=== PATIENT | male | born 1960 | race Caucasian/White ===

== ENCOUNTER 2018-06-12 15:05 | Emergency (ER) | payer OTHER, SELFPAY ==
[2018-06-12 15:06] VITALS: BP 160/86; PULSE 76; RESP 20; TEMP 36.8; O2SAT 96; BMI 32.5
--- NOTE | 2018-06-12 15:19 | CT_ITS ---
STUDY: CTA CHEST REASON FOR EXAM: Male, 58 years old. Short of breath RADIATION DOSAGE (If Supplied By Facility): CTDIvol = ( 13.35 ) mGy, DLP = ( 764.13 ) mGycm TECHNIQUE: The examination was performed with the intravenous administration of 100ML ml of Isovue 370 contrast material. Post-processing of the angiographic images was performed, with multiplanar reformation and 3D reconstruction. Individualized dose optimization techniques were used for this CT. COMPARISON: May 16 2013 FINDINGS: Normal enhancement of the main pulmonary artery and right and left pulmonary arteries. There are multiple intraluminal filling defects within the subsegmental vessels of both lower lobes many of which appear linear and may be due to motion artifact. Some of the filling defects are lobular and are suspicious for emboli. Normal thoracic aorta and visualized great vessels. There is no demonstrated aortic dissection. The heart is normal size although and there appears to be multivessel coronary artery disease Normal mediastinum. Normal hilar regions. Normal visualized trachea and bronchi. The lungs are well expanded. There is mild nonspecific interstitial thickening. There are no focal infiltrates. Normal pleura. Normal chest wall structures. Dorsal spine demonstrates moderate spondylosis Normal visualized upper abdomen. CT/CTA Chest W/WO Contrast IMPRESSION: Mild nonspecific interstitial thickening.. Findings suspicious for pulmonary emboli however there are linear artifacts limiting the quality of the study. Would recommend clinical correlation and further assessment with ventilation/perfusion study and Doppler sonogram of the deep venous system of lower extremities if indicated N.B. : The above information has been verbally conveyed by Feliz Salas MD to Dr. Nicholas Wagner MD, on 06/12/2018 17:06:59 (ET). Electronically Signed: Feliz Salas MD at 17:08 EDT , Service support ,
--- NOTE | 2018-06-12 15:19 | EKG12_ITS ---
Test Reason : SOB Blood Pressure : / mmHG Vent. Rate : 073 BPM Atrial Rate : 073 BPM P-R Int : 154 ms QRS Dur : 094 ms QT Int : 416 ms P-R-T Axes : -09 -28 000 degrees QTc Int : 458 ms Normal sinus rhythm Normal ECG Confirmed by ALANNA CUI, MARTIN ([id number]), manager editorial JOHN DONATO ([id number]) on 06/14/2018 3:45:51 PM Referred By: OMAR Confirmed By:MARTIN MONDRAGON MD
--- NOTE | 2018-06-12 15:22 | ED.VISSUMM ---
- ER Visit Summary Date of Service: 06/12/18 Chief Complaint: Shortness of breath History of Present Illness: The patient is a 58 M with shortness of breath for 2 or 3 weeks. It seems to be getting worse over the last 2-3 weeks. It is worse throughout the day and better at night. He is concerned it might be related to exposure to a cat. He never had this before. No chest pain. No cough or sputum. No fevers. He has a history of DVT which was provoked by foot surgery. He is only on aspirin but no other thinners. Denies any leg swelling or calf pain. Denies nausea, vomiting, lightheadedness, or palpitations. Physical Examination: Blood pressure 160/86. Otherwise vitals normal. Afebrile. Patient is in no acute distress. Sitting, breathing, and speaking comfortably. HEENT exam unremarkable. Lungs clear in all burch. Heart regular rate and rhythm. Abdomen soft. Extremities nontender with no edema. Skin appears normal without diaphoresis or pallor. Test Results: EKG showed sinus rhythm at a rate of 73 with no signs of ischemia or infarction pattern. Laboratory studies and CT are pending. Emergency Department Course and Treatment: Patient may have an infectious or allergic cause. I was also concern for cardiac, vascular, and respiratory causes. He was treated with a DuoNeb while awaiting results. Will monitor. CBC normal. Glucose 198. Troponin normal. BNP normal. Coags pending. CT showed bilateral subsegmental PEs suspected. Patient was discussed with Dr. Lu. He was on Lovenox in the past. I am suspecting he will be on anticoagulation potentially for long-term. I spoke with the patient and we will start Xarelto. Follow-up with the office. His PESI score is low risk and he has no significant risk for bleeding. He was given precautions. He should return if he has any worsening of his PE symptoms or any issues with medication. Treatment Plan: As above Disposition: Discharge Impression: 1. Bilateral pulmonary emboli This note was generated with [employer] software. It may contain incorrect words, spelling, and punctuation that were not noted in review of the chart prior to signing ED Disposition - Plan for ED Patient: Chief Complaint: Shortness of Breath Referrals: Tadeo Salter MD [Primary Care Provider] -
[2018-06-12 15:27] VITALS: PULSE 70; RESP 12
[2018-06-12] MEDS: Ipratropium/Albuterol Sulfate 3 ML AMPUL.NEB INHALATION (15:27)
[2018-06-12 15:46] LABS: Absolute Neutrophil Count 5.9 X10^3/uL (2.0-7.7); Basophil# 0.03 X10^3/uL; Basophil% 0.4 % (0-1); Eosinophil# 0.12 X10^3/uL; Eosinophils% 1.4 % (0-5); Hematocrit 42.2 % (40-54); Hemoglobin 14.8 g/dl (13.0-16.5); Mean Corp Hgb Conc 35.1 g/gl (32-36); Mean Corpuscular Hgb 31.9 pg (27.0-32.0); Mean Corpuscular Volume 90.9 fL (80-94); Mean Platelet Vol. 10.4 fl (6.2-12.0); Monocyte# 0.73 X10^3/uL; Monocyte% 8.7 % (0-10); Neutrophil # 5.93 X10^3/uL (2.7-7.7); Neutrophil % 70.4 % (47-70); Platelet Count 193 K/mm3 (150-450); RBC Distribution Width CV 12.4 % (11.6-14.6); RBC Distribution Width SD 40.9 fl (35.1-43.9); Red Blood Count 4.64 M/mm3 (4.6-6.2); White Blood Count 8.4 K/mm3 (4.4-11.0)
[2018-06-12 15:47] LABS: POSITIVE COUNT NO; POSITIVE DIFFERENTIAL NO; POSITIVE MORPHOLOGY NO
[2018-06-12 15:51] VITALS: PULSE 81; RESP 17
[2018-06-12 16:01] LABS: Anion Gap 4 (5-15); BUN 9 mg/dL (7-18); BUN/Creat Ratio 8.9 RATIO (10-20); Calcium,Total 8.3 mg/dL (8.5-10.1); Chloride 105 mmol/L (98-107); Creatinine, Serum 1.01 mg/dL (0.70-1.30); EST Glomerular Filtration Rate 80 mL/min (>60); Est Glom Filt Rate - Afr Amer 97 mL/min (>60); Estimated Creatinine Clearance 85.37 ml/min; Glucose 198 mg/dL (74-106); Sodium Level 137 mmol/L (136-145)
[2018-06-12 16:13] LABS: BNP,B-Type NATRIURETIC PEPTIDE 32.6 pg/mL (0-100)
--- NOTE | 2018-06-12 18:09 | NURSING ---
DR TAVERAS PAGED
--- NOTE | 2018-06-12 18:21 | ED.DEP ---
ED Disposition - Plan for ED Patient: Chief Complaint: Shortness of Breath Instructions: Pulmonary Embolism Prescriptions: Rivaroxaban [Xarelto] 15 mg PO BID 21 Days #42 tab Referrals: Tadeo Salter MD [Primary Care Provider] -
[2018-06-12 18:33] LABS: Prothrombin Time (Protime)PT. 13.1 SECONDS (11.7-14.9)
[2018-06-12 18:34] LABS: Partial Thromboplast Time 29.4 Seconds (24.1-36.2)
[2018-06-12 18:54] VITALS: BP 140/82; PULSE 72; PULSE 73; RESP 16; RESP 17
[2018-06-12] MEDS: Rivaroxaban 15 MG Tablet PO (18:58)
== END 2018-06-12 19:04 | disposition home or self-care (01) ==
LOC: ED 15:57
PROVIDERS: Emergency Provider Emergency Medicine; Family Provider Internal Medicine; PCP Internal Medicine
DX: I26.99 Other pulmonary embolism without acute cor pulmonale (principal); E78.00 Pure hypercholesterolemia, unspecified; Z72.0 Tobacco use; Z86.718 Personal history of other venous thrombosis and embolism
CPT/HCPCS: 71275; 80048; 83880; 84484; 85025; 85610; 85730; 93005; 94640; 99285; Q9967; A4216

== ENCOUNTER 2018-06-18 13:13 | Emergency (ER) | payer OTHER, SELFPAY ==
[2018-06-18 13:17] VITALS: BP 144/78; PULSE 83; RESP 17; TEMP 37.7; O2SAT 94; BMI 31.8
--- NOTE | 2018-06-18 13:35 | EKG12_ITS ---
Test Reason : SOB Blood Pressure : / mmHG Vent. Rate : 063 BPM Atrial Rate : 063 BPM P-R Int : 136 ms QRS Dur : 098 ms QT Int : 428 ms P-R-T Axes : 000 -24 001 degrees QTc Int : 437 ms Normal sinus rhythm Normal ECG Confirmed by JACOB AREVALO ([id number]), image editor JOHN DONATO ([id number]) on 06/21/2018 2:08:56 PM Referred By: Confirmed By:JACOB AREVALO
--- NOTE | 2018-06-18 13:35 | RAD_ITS ---
STUDY: X-RAY CHEST REASON FOR EXAM: Male, 58 years old. Shortness of breath and chest tightness. TECHNIQUE: PA and lateral views of the chest. COMPARISON: Comparison is made with prior examination dated January 25, 2016. FINDINGS: EKG electrodes are seen. The lungs are clear and expanded. There is no demonstrated pleural abnormality. Normal size heart. Normal mediastinum and keenan. Normal visualized pulmonary arteries. Normal visualized aortic arch and descending thoracic aorta. There is demineralization of the osseous structures. Normal visualized ribs, clavicles, and shoulders. There is no demonstrated abnormality of the visualized soft tissue structures of the upper abdomen. RAD/Chest PA and Lateral IMPRESSION: No acute abnormality is seen. Electronically Signed: Carlton Ortiz MD at 14:47 EST Tel [phone], Service support ,
[2018-06-18 13:56] LABS: Absolute Lymphocyte Count 1.32 X10^3/ul (0.83-4.51); Absolute Neutrophil Count 6.3 X10^3/uL (2.0-7.7); Basophil# 0.03 X10^3/uL; Basophil% 0.3 % (0-1); Eosinophil# 0.09 X10^3/uL; Hematocrit 43.7 % (40-54); Hemoglobin 15.1 g/dl (13.0-16.5); Lymphocyte # 1.32 X10^3/ul (4.0); Lymphocyte % 15.3 % (19-41); Mean Corp Hgb Conc 34.6 g/gl (32-36); Mean Corpuscular Hgb 31.7 pg (27.0-32.0); Mean Corpuscular Volume 91.8 fL (80-94); Mean Platelet Vol. 10.4 fl (6.2-12.0); Monocyte# 0.88 X10^3/uL; Monocyte% 10.2 % (0-10); Neutrophil # 6.28 X10^3/uL (2.7-7.7); Neutrophil % 73.1 % (47-70); POSITIVE COUNT NO; POSITIVE DIFFERENTIAL NO; POSITIVE MORPHOLOGY NO; Platelet Count 209 K/mm3 (150-450); RBC Distribution Width CV 12.4 % (11.6-14.6); RBC Distribution Width SD 41.8 fl (35.1-43.9); Red Blood Count 4.76 M/mm3 (4.6-6.2); White Blood Count 8.6 K/mm3 (4.4-11.0)
[2018-06-18 14:08] LABS: Anion Gap 7 (5-15); BUN 10 mg/dL (7-18); BUN/Creat Ratio 9.9 RATIO (10-20); Chloride 103 mmol/L (98-107); Creatinine, Serum 1.01 mg/dL (0.70-1.30); EST Glomerular Filtration Rate 80 mL/min (>60); Est Glom Filt Rate - Afr Amer 97 mL/min (>60); Estimated Creatinine Clearance 85.37 ml/min; Glucose 235 mg/dL (74-106); Potassium 4.4 mmol/L (3.5-5.1); Sodium Level 139 mmol/L (136-145)
--- NOTE | 2018-06-18 14:11 | ED.VISSUMM ---
- ER Visit Summary Date of Service: 06/18/18 Chief Complaint: Left-sided chest discomfort and shortness of breath History of Present Illness: The patient is a 58 M who was diagnosed with bilateral subsegmental pulmonary embolus with a low pulmonary embolus severity index who was discharged home on Xarelto. Patient states he has been taking Xarelto. He presents because his home-going instructions informed him to return if he had chest pain or shortness of breath. 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 His definite shortness of breath is inability to get a complete breath. He has persistent left-sided chest pain. He denies leg pain, swelling discoloration. He does have history of prior DVT. He states he was seen by his PCP and had an ultrasound will lower extremity which was negative for DVT. Per old records has history of diabetes. Review of systems otherwise negative please read written note. Physical Examination: Vital signs noted and remarkable for a blood pressure 1 4478 otherwise normal. Head is atraumatic normocephalic. Pupils are equal round reactive. Extraocular muscles are intact. TMs are pearly white with landmarks noted. Nares patent with no drainage. Posterior pharynx without erythema or exudate. Uvula is midline. There is no dysphonia or dysphasia. Trachea is midline. There is no stridor with auscultation of the neck. Heart is regular without murmur, gallop or rub. S1 and S2 are normal. Lungs are clear to auscultation with good movement of air bilaterally. There is no reproducible chest pain and there is no skin lesions noted. Abdomen is soft nontender with no hepatosplenomegaly. There is no asymmetry, swelling, discoloration, leg vein distention, palpable cords or tenderness along the distribution of the deep venous system. Test Results: EKG reveals a sinus rhythm rate of 73 with a normal IA interval, QRS duration and QT interval. Cowen is normal. Chest x-ray was obtained to determine if there is evidence of pulmonary infarct, infiltrate, pneumothorax and any other abnormality the would explain his cough and shortness of breath. Chest x-ray is negative. CBC is normal. Basic metabolic panels marked for glucose of 235 and a diabetic patient Emergency Department Course and Treatment: EKG was obtained to evaluate for cardiac ischemia or right heart strain. Chest x-ray to evaluate for pneumonia, CHF pneumothorax. Also to determine if there is evidence of pulmonary infarct i.e.? Scarring or [place] hump. CBC to evaluate for anemia which could be a cause of his dyspnea. Electrolyte function. Treatment Plan: Since patient's workup is negative and CAT scan revealed sub-submental pulmonary embolus and he reports compliance with Xarelto patient is safe for discharge to home. Disposition: Discharged to home Impression: Left-sided chest pain and dyspnea unknown etiology Recent diagnosis of bilateral pulmonary embolus Hyperglycemia and type II diabetic This note was generated with [employer] dictation software. It may contain incorrect words, spelling, and punctuation that were not noted in review of the chart prior to signing ED Disposition - Plan for ED Patient: Disposition: Home or Assisted Living Chief Complaint: Shortness of Breath Instructions: ED Dyspnea Shortness of Breath Referrals: Tadeo Salter MD [Primary Care Provider] - 3-5 Days if not improving
--- NOTE | 2018-06-18 14:15 | ED.DCSUM_ITS ---
- ER Visit Summary Date of Service: 06/18/18 Chief Complaint: Left-sided chest discomfort and shortness of breath History of Present Illness: The patient is a 58 M who was diagnosed with bilateral subsegmental pulmonary embolus with a low pulmonary embolus severity index who was discharged home on Xarelto. Patient states he has been taking Xarelto. He presents because his home-going instructions informed him to return if he had chest pain or shortness of breath. 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 His definite shortness of breath is inability to get a complete breath. He has persistent left-sided chest pain. He denies leg pain, swelling discoloration. He does have history of prior DVT. He states he was seen by his PCP and had an ultrasound will lower extremity which was negative for DVT. Per old records has history of diabetes. Review of systems otherwise negative please read written note. Physical Examination: Vital signs noted and remarkable for a blood pressure 1 4478 otherwise normal. Head is atraumatic normocephalic. Pupils are equal round reactive. Extraocular muscles are intact. TMs are pearly white with landmarks noted. Nares patent with no drainage. Posterior pharynx without erythema or exudate. Uvula is midline. There is no dysphonia or dysphasia. Trachea is midline. There is no stridor with auscultation of the neck. Heart is regular without murmur, gallop or rub. S1 and S2 are normal. Lungs are clear to auscultation with good movement of air bilaterally. There is no reproducible chest pain and there is no skin lesions noted. Abdomen is soft nontender with no hepatosplenomegaly. There is no asymmetry, swelling, discoloration, leg vein distention, palpable cords or tenderness along the distribution of the deep venous system. Test Results: EKG reveals a sinus rhythm rate of 73 with a normal NC interval, QRS duration and QT interval. Belcher is normal. Chest x-ray was obtained to determine if there is evidence of pulmonary infarct, infiltrate, pneumothorax and any other abnormality the would explain his cough and shortness of breath. Chest x-ray is negative. CBC is normal. Basic metabolic panels marked for glucose of 235 and a diabetic patient Emergency Department Course and Treatment: EKG was obtained to evaluate for cardiac ischemia or right heart strain. Chest x-ray to evaluate for pneumonia, CHF pneumothorax. Also to determine if there is evidence of pulmonary infarct i.e.? Scarring or [place]ptons hump. CBC to evaluate for anemia which could be a cause of his dyspnea. Electrolyte function. Treatment Plan: Since patient's workup is negative and CAT scan revealed sub- submental pulmonary embolus and he reports compliance with Xarelto patient is safe for discharge to home. Disposition: Discharged to home Impression: Left-sided chest pain and dyspnea unknown etiology Recent diagnosis of bilateral pulmonary embolus Hyperglycemia and type II diabetic This note was generated with [employer] dictation software. It may contain incorrect words, spelling, and punctuation that were not noted in review of the chart prior to signing ED Disposition - Plan for ED Patient: Disposition: Home or Assisted Living Chief Complaint: Shortness of Breath Instructions: ED Dyspnea Shortness of Breath Referrals: Tadeo Salter MD [Primary Care Provider] - 3-5 Days if not improving
[2018-06-18 14:44] VITALS: BP 162/82; PULSE 66; RESP 18; O2SAT 97
== END 2018-06-18 14:45 | disposition home or self-care (01) ==
PROVIDERS: Emergency Provider Emergency Medicine; Family Provider Internal Medicine; PCP Internal Medicine
DX: R07.9 Chest pain, unspecified (principal); R06.09 Other forms of dyspnea; E11.65 Type 2 diabetes mellitus with hyperglycemia; Z72.0 Tobacco use; I26.99 Other pulmonary embolism without acute cor pulmonale
CPT/HCPCS: 71046; 80048; 85025; 93005; 99285

== ENCOUNTER → 2018-06-25 10:58 | Outpatient (CLI) | payer OTHER, SELFPAY ==
--- NOTE | 2018-06-25 11:13 | CT_ITS ---
STUDY: CTA CHEST REASON FOR EXAM: Male, 58 years old. History of PE follow-up and comparison to RADIATION DOSAGE (If Supplied By Facility): CTDIvol = ( 14.84 ) mGy, DLP = ( 815.20 ) mGycm TECHNIQUE: The examination was performed with the intravenous administration of 100 ml of Isovue 370 contrast material. Post-processing of the angiographic images was performed, with multiplanar reformation and 3D reconstruction. Individualized dose optimization techniques were used for this CT. COMPARISON: CTA Chest 06/27. Chest x-ray 06/18/2018. FINDINGS: Normal enhancement of the main pulmonary artery and right and left pulmonary arteries. Normal enhancement of the bilateral peripheral pulmonary arteries. There is no demonstrated pulmonary embolism. Normal thoracic aorta and visualized great vessels with only minimal arteriosclerosis involving the arch and descending thoracic aorta. There is no demonstrated aortic dissection. Normal heart and pericardium. Normal mediastinum. Normal hilar regions. Normal visualized trachea and bronchi. The lungs are well expanded. Normal pulmonary parenchyma. Normal pleura. Normal chest wall structures. Age-appropriate osseous structures. Normal visualized upper abdomen. CT/CTA Chest W/WO Contrast IMPRESSION: Normal CTA chest examination, without a demonstrated pulmonary embolism or arterial dissection. Electronically Signed: Gini Barth MD at 7:10 EST , Service support ,
[2018-06-25 12:17] LABS: D-Dimer Quantitative (DVT/PE) 0.48 FEU/ug/m (0.27-0.49)
== END ==
PROVIDERS: Family Provider Internal Medicine; PCP Internal Medicine; Referring Provider Internal Medicine Pulmonary Disease; Visit Provider Internal Medicine Pulmonary Disease
DX: R06.00 Dyspnea, unspecified (principal); I26.99 Other pulmonary embolism without acute cor pulmonale; Z86.718 Personal history of other venous thrombosis and embolism
CPT/HCPCS: 36415; 71275; 85379; Q9967

== ENCOUNTER → 2018-07-09 14:29 | Outpatient (CLI) | payer OTHER, SELFPAY ==
[2018-06-18 13:17] VITALS: BMI 31.8
[2018-07-16 19:07] LABS: Dilute Prothrombin Time (dPT) 40.7 sec (0.0-55.0); Dilute Russell Viper Venom 36.4 sec (0.0-47.0); PTT-LA 31.5 sec (0.0-51.9); Protein C Antigen 94 % (60-150); Protein C, Functional 124 % (73-180); Thrombin Time 17.3 sec (0.0-23.0); dPT Confirm Ratio 0.91 Ratio (0.00-1.40)
[2018-07-17 11:58] LABS: Anti-Cardiolipin Ab, IgA, Qn < 9 APL U/mL (0-11); Anti-Cardiolipin Ab, IgG, Qn < 9 GPL U/mL (0-14); Anti-Cardiolipin Ab, IgM, Qn < 9 MPL U/mL (0-12); Interpretation Comment: (.)
--- OUTSIDE RECORDS SUMMARY | 2018-09-03 14:02 | XMS RPT_ITS ---
:1960 Author Organization [place] Care Team Providers Name Role Phone TADEO GAMBOA Referring Unavailable SOLEDADHOWARD Attending Unavailable LUANA GARCIA (BAG LOADER) Referring Unavailable SALLY, MANDI Attending Unavailable TADEO GAMBOA Referring Unavailable SALLY, MANDI Referring Unavailable TADEO GAMBOA Attending Unavailable TADEO GAMBOA Referring Unavailable ROSSY SU Attending Unavailable SALLY, MANDI Referring Unavailable SALLY, MANDI Referring Unavailable SALLY, MANDI Attending Unavailable SALLY, MANDI Referring Unavailable MARIA GUADALUPE MAX (JOSÉ) Referring Unavailable SOLEDAD, HOWARD Referring Unavailable LUANA GARCIA (ANIRUDH) Attending Unavailable TADEO GAMBOA Referring Unavailable PERRI PLUMMER (BAG LOADER) Attending Unavailable TADEO GAMBOA Referring Unavailable PERRI PLUMMER (BAG LOADER) Attending Unavailable TADEO GAMBOA H Referring Unavailable OLDER, PERRI (BAG LOADER) Referring Unavailable OLDER, PERRI (BAG LOADER) Attending Unavailable OLDER, PERRI (BAG LOADER) Referring Unavailable Gaetano, Tadeo Primary Care Unavailable Nicholas Wagner Attending Unavailable Gaetano, Tadeo Primary Care Unavailable Rohit Emery Attending Unavailable Rita, Cachorro Attending Unavailable Rita, Cachorro Referring Unavailable Gaetano, Tadeo Primary Care Unavailable Cachorro Salinas Attending Unavailable Sibhair, Cachorro Referring Unavailable Gaetano, Tadeo Primary Care Unavailable PROBLEMS PROBLEMS DATE TYPE CONDITION / CODE ATTENDING STATUS SOURCE 07/14/2018 Unknown Z86.711 - Personal Cachorro Salinas Active [facility] / Z86.711(ICD-10) Repository 07/05/2018 Unknown I26.99 - Other Cachorro Salinas Active [facility] pulmonale / Repository I26.99(ICD-10) 06/24/2018 Active Dysuria / NA Active [facility] R30.0(ICD-10) [place] Repository 06/24/2018 Active Hematuria, NA Active [facility] unspecified / [facility] [place] R31.9(ICD-10) Repository 06/14/2018 Active Other pulmonary NA Active [facility] embolism without [facility] [place] acute cor pulmonale Repository / I26.99(ICD-10) 02/17/2018 Active Type 2 diabetes NA Active [facility] mellitus with [facility] [place] unspecified Repository complications / E11.8(ICD-10) 02/17/2018 Active Other custodial NA Active [facility] (current) drug [facility] [place] therapy / Repository Z79.899(ICD-10) 10/09/2017 Active Major depressive NA Active [facility] disorder, single [place] episode, Repository unspecified / F32.9(ICD-10) 10/09/2017 Active Obstructive sleep NA Active [facility] apnea (adult) [facility] [place] (pediatric) / Repository G47.33(ICD-10) 09/15/2017 Active Unknown / HOWARD CANO Active [facility] UNK(Unknown) [place] Repository 09/14/2017 Active Type 2 diabetes NA Active [facility] mellitus with [facility] [place] hyperglycemia / Repository E11.65(ICD-10) 09/14/2017 Active detention (current) NA Active [facility] use of insulin / [facility] [place] Z79.4(ICD-10) Repository PROCEDURES PROCEDURES No Procedure Records FoundRESULTS RESULTS HOMOCYSTEINE Collected: 07/09/2018 Status: F Source: [place] 2:39 PM [facility] REPOSITORY TYPE CODE TESTS RESULT OUT OF REFERENCE UNITS RANGE LAB L503.8001 3.2-10.7 umol/L HOMOCYSTEINE Normal 8.0 Performed By: #### L503.8001 #### [facility] [address] [place], [address] MISCELLANEOUS LAB Collected: 07/09/2018 Status: F Source: [place] PROCEDURE 2 2:39 PM [facility] REPOSITORY Order Comment: List Test(s) Ordered by Physician: [id number] ANTITHROMBIN III PLASMA FZ TYPE CODE TESTS RESULT OUT OF RANGE REFERENCE UNITS LAB L801.1543 Normal [facility] [place] 2 Result Comment: TEST RESULT UNITS REFERENCE INTERVAL Antithrombin Activity 115 % 75 - 135 Direct Xa inhibitor anticoagulants such as rivaroxaban, apixaban and edoxaban will lead to spuriously elevated antithrombin activity levels possibly masking a deficiency. TESTING PERFORMED AT [facility]. ORIGINAL REPORT ON FILE IN LAB CONTAINS ADDITIONAL TEST SITE INFORMATION. Performed By: #### L801.1543 #### [facility] [address] [place], [address] PROTEIN C DEFIC. Collected: 07/09/2018 Status: F Source: [place] PROFILE 2:[address] [facility] REPOSITORY TYPE CODE TESTS RESULT OUT OF RANGE REFERENCE UNITS LAB L3100.7310 60-150 % Normal PROTEIN C 94 LAB L3100.7335 73-180 % Normal PROT C,FUNC 124 Performed By: #### L3100.7275, L3100.8408, L4500.0100, L4500.2000, L4500.5000 #### [facility] (refer to report for specific site) refer to report for address and phone number ANTICARDIOLIPIN IGA,G,M Collected: 07/09/2018 Status: F Source: [place] 2:39 PM [facility] REPOSITORY TYPE CODE TESTS RESULT OUT OF RANGE REFERENCE UNITS LAB L3100.8420 0-14 GPL U/mL Normal ANTICARDIO IgG < 9 Result Comment: Negative: <15 Indeterminate: 15 - 20 Low-Med Positive: >20 - 80 High Positive: >80 LAB L3100.8425 0-12 MPL U/mL Normal ANTICARDIO IgM < 9 Result Comment: Negative: <13 Indeterminate: 13 - 20 Low-Med Positive: >20 - 80 High Positive: >80 LAB L3100.8430 0-11 APL U/mL Normal ANTICARDIO IgA < 9 Result Comment: Negative: <12 Indeterminate: 12 - 20 Low-Med Positive: >20 - 80 High Positive: >80 Performed By: #### L3100.7275, L3100.8408, L4500.0100, L4500.2000, L4500.5000 #### [facility] (refer to report for specific site) refer to report for address and phone number LUPUS ANTICOAGULANT COMP Collected: 07/09/2018 Status: F Source: [place] 2:39 PM [facility] REPOSITORY TYPE CODE TESTS RESULT OUT OF REFERENCE UNITS RANGE LAB L4500.0125 0.0-55.0 sec DILUTE PT (dPT) Normal 40.7 LAB L4500.0150 0.00-1.40 Ratio dPT Conf. Ratio Normal 0.91 LAB L4500.0200 0.0-23.0 sec THROMBIN TIME Normal 17.3 LAB L4500.0600 0.0-51.9 sec PTT-LA Normal 31.5 LAB L4500.1000 0.0-47.0 sec DRVVT Normal 36.4 LAB L4500.1300 . Interpretation Normal Comment: Result Comment: No lupus anticoagulant was detected. Performed By: #### L3100.7275, L3100.8408, L4500.0100, L4500.2000, L4500.5000 #### [facility] (refer to report for specific site) refer to report for address and phone number FACTOR II, DNA Collected: 07/09/2018 Status: F Source: [place] ANALYSIS 2:39 PM [facility] REPOSITORY TYPE CODE TESTS RESULT OUT OF RANGE REFERENCE UNITS LAB L4500.2100 . Normal FACTOR Comment II,DNA Result Comment: NEGATIVE No mutation identified. Comment: A point mutation (P06840P) in the factor II (prothrombin) gene is the second most common cause of inherited thrombophilia. The incidence of this mutation in the [place] population is about 2% and in the population it is approximately 0.5%. This mutation is rare in the and population. Being heterozygous for a prothrombin mutation increases the risk for developing venous thrombosis about 2 to 3 times above the general population risk. Being homozygous for the prothrombin gene mutation increases the relative risk for venous thrombosis further, although it is not yet known how much further the risk is increased. In women heterozygous for the prothrombin gene mutation, the use of estrogen containing oral contraceptives increases the relative risk of venous thrombosis about 16 times and the risk of developing cerebral thrombosis is also significantly increased. In the prothrombin gene mutation increases risk for venous thrombosis and may increase risk for stillbirth, placental abruption, pre-eclampsia and growth restriction. If the patient possesses two or more congenital or acquired thrombophilic risk factors, the risk for thrombosis may rise to more than the sum of the risk ratios for the individual mutations. This assay detects only the prothrombin Z36462C mutation and does not measure genetic abnormalities elsewhere in the genome. Other thrombotic risk factors may be pursued through systematic clinical laboratory analysis. These factors include the R506Q (Leiden) mutation in the Factor V gene, plasma homocysteine levels, as well as testing for deficiencies of antithrombin III, protein C and protein S. Genetic Counselors are available for health care providers to discuss results at [phone] Methodology: DNA analysis of the Factor II gene was performed by PCR amplification followed by restriction analysis. The diagnostic sensitivity is >99% for both. All the tests must be combined with clinical information for the most accurate interpretation. Molecular-based testing is highly accurate, but as in any laboratory test, diagnostic errors may occur. This test was developed and its performance characteristics determined by [facility]. It has not been cleared or approved by the Food and Drug Administration. Poort SR, et al. Blood. 1996; 88:8440-8759. Mikhail PEREYRA. Circulation. 2004; 110:e15-e18. Mariya Ren et al. Arterioscler Thromb Vasc Biol. 1999; 19:700-703. Oma Trevizo, PhD, [facility] Stephie Soria, PhD, [facility] Krystal Gan M.S., PhD, [facility] Flor Dukes, PhD, [facility] Bob Morelos, PhD, [facility] Reggie Marquis, PhD, [facility] Performed at: - [facility] [id number] Slip Cover Operator: Eric Lopez MD, Phone: [phone] Performed at: - [facility] [id number] Slip Cover Operator: Dillon Sin PhD, Phone: [phone] Performed at: - [facility] [id number] Slip Cover Operator: Kathy Aldana MD, Phone: [phone] Performed By: #### L3100.7275, L3100.8408, L4500.0100, L4500.2000, L4500.5000 #### [facility] (refer to report for specific site) refer to report for address and phone number FACT V LEIDEN Collected: 07/09/2018 Status: F Source: [place] MUTATION 2:39 PM [facility] REPOSITORY TYPE CODE TESTS RESULT OUT OF RANGE REFERENCE UNITS LAB L4500.5100 . Normal FACTOR V Comment LEIDEN Result Comment: Result: Negative (no mutation found) Factor V Leiden is a specific mutation (R506Q) in the factor V gene that is associated with an increased risk of venous thrombosis. Factor V Leiden is more resistant to inactivation by activated protein C. As a result, factor V persists in the circulation leading to a mild hyper- coagulable state. The Leiden mutation accounts for 90% - 95% of APC resistance. Factor V Leiden has been reported in patients with deep vein thrombosis, pulmonary embolus, central retinal vein occlusion, cerebral sinus thrombosis and hepatic vein thrombosis. Other risk factors to be considered in the workup for venous thrombosis include the [id number] mutation in the factor II (prothrombin) gene, protein S and C deficiency, and antithrombin deficiencies. Anticardiolipin antibody and lupus anticoagulant analysis may be appropriate for certain patients, as well as homocysteine levels. Contact your local [facility] for information on how to order additional testing if desired. Genetic counselors are available for health care providers to discuss results at [phone] Methodology: DNA analysis of the Factor V gene was performed by allele- specific PCR. The diagnostic sensitivity and specificity is >99% for both. Molecular-based testing is highly accurate, but as in any laboratory test, diagnostic errors may occur. All test results must be combined with clinical information for the most accurate interpretation. This test was developed and its performance characteristics determined by [facility]. It has not been cleared or approved by the Food and Drug Administration. References: Bhavin Gilliam (1996). Clin Lab Med 16:169-186. Oma Trevizo, PhD, [facility] Stephie Soria, PhD, [facility] Krystal Gan MReginaSRegina, PhD, [facility] Flor Dukes, PhD, FAC Bob Morelos, PhD, [facility] Reggie Marquis PhD, [facility] Performed By: #### L3100.7275, L3100.8408, L4500.0100, L4500.2000, L4500.5000 #### [facility] (refer to report for specific site) refer to report for address and phone number [facility]: 06/28/2018 Status: COMPLETED Source: [place] 12:00 AM [facility] REPOSITORY Telephone [facility] ROSIO POLO ([id number]) 1960 M NFR Date Time Provider Department 06/28/18 [facility] During your visit today, we recorded the following information about you: Chiara Denney KAE 06/28/2018 10:41 AM Signed Pt calls to report that he had a f/u CT done Monday 06/25 at [facility] through Dr. Salinas. Today pt received a phone call from Dr. Siblias office stating that everything looked good and pt could stop taking Xarelto. Pt repots this is concerning to him and would like provider to review. Pt reports he had tacos with Perri Plummer CNP 06/24/18. Chiara Plummer APRN.CNP 06/29/2018 8:35 AM Addendum The initial CT scan done in ER showed only possible blood clot, because of your symptoms they started you on blood thinner even though they weren't sure. Repeat CT scan negative for blood clots. They also checked a lab called D-dimer, this was negative which further indicates no blood clot.Okay to stop Xarelto per telephone exchange operator recommendations. Please also let patient know his urine culture did not show infection. I would like to repeat the urinalysis next week. PAT Cole Cma 06/29/2018 8:44 AM Signed Patient is notified of all information and verbalizes understanding. Breana Wright LPN 06/29/2018 9:59 AM Signed Patient returned call and asked to go over information again was not fully awake when he got phone call this morning, went over notes from Perri Plummer HUNTER with understanding. Allergies As of Date: 06/28/2018 Noted Allergy Reaction INFLUENZA VIRUS VACCINES 11/13/2014 14 - Other: See Comments Comments: myalgias PREDNISONE 01/12/2013 2 - Rash SERTRALINE 07/11/2013 8 - GI Upset VICODIN (HYDROCODONE-ACETAMINOPHE*05/11/2013 9 - Itching Date Reviewed: 06/24/2018 Reviewed by: Breana Hartmann Cma - Fully Assessed Reason for Visit: xarelto question [Other] Primary Visit Diagnosis:Microscopic hematuria [R31.29] Order(s):URINALYSIS WITH MICROSCOPIC [SQUAWMIC] Order #: [id number] Prescriptions as of 06/28/2018 Sig: SULFAMETHOXAZOLE 800 MG-TRIME* Take 1 tablet by mouth twice * RIVAROXABAN 15 MG (42)-20 MG * Take 1 tablet by mouth. Take * INSULIN GLARGINE (U-100) 100 * Inject subcutaneously 40 unit* CLOTRIMAZOLE-BETAMETHASONE 1 * Apply 1 application to affect* GLIMEPIRIDE 2 MG TABLET TAKE 2 TABLETS TWICE A DAY WI* EASY TOUCH 31 GAUGE X 1/4 NE* USE DIRECTED DAILY JANUVIA 100 MG TABLET TAKE 1 TABLET ONCE DAILY PRAVASTATIN 40 MG TABLET Take 1 tablet by mouth daily * METFORMIN 500 MG TABLET Take 2 tablets by mouth twice* LANSOPRAZOLE 30 MG CAPSULE,DE* TAKE 1 TO 2 CAPSULES DAILY COMPOUNDED PRESCRIPTION CPAP Replacement parts, inclu* CPAP CPAP @ 10 cm of water with hu* BLOOD SUGAR DIAGNOSTIC STRIPS Test blood sugar(s) 3 times d* CITALOPRAM 20 MG TABLET Take 1 tablet by mouth once d* MIRTAZAPINE 30 MG TABLET Take 1 tablet by mouth daily * ASPIRIN 81 MG TABLET Take one(1) tablet daily. Problem List As Of Date 06/28/2018 Noted Resolved OVERWEIGHT [E66.9] INVALID FOR* Diabetes type 2, uncontrolled (HCC) [E11.65] INVALID FOR* More... Hyperlipemia [E78.5] INVALID FOR* More... Gastroesophageal reflux disease without esophag*INVALID FOR* Cervical rib [Q76.5] INVALID FOR*12/09/2010 Personal history of tobacco use, presenting haz*INVALID FOR*03/29/2014 More... Abdominal pain, generalized [R10.84] INVALID FOR*12/09/2010 Abdominal pain, right upper quadrant [R10.11] INVALID FOR*12/09/2010 Acute gastritis without mention of hemorrhage [*INVALID FOR*12/09/2010 More... BENIGN JOYA SKIN TRUNK [D23.5] INVALID FOR* Calcaneal spur [M77.30] INVALID FOR*12/09/2010 Plantar fascial fibromatosis [M72.2] INVALID FOR*12/09/2010 Abnormality of gait [R26.9] INVALID FOR*12/09/2010 Venous thrombosis [I82.90] INVALID FOR*08/19/2012 Lumbosacral spondylosis without myelopathy [M47*INVALID FOR*03/29/2014 Pain in limb [M79.609] INVALID FOR*03/29/2014 More... Pain in joint, shoulder region [M25.519] INVALID FOR*12/09/2010 Anxiety [F41.9] INVALID FOR* More... Kidney stone [N20.0] INVALID FOR*12/09/2010 More... Lumbago [M54.5] INVALID FOR*03/29/2014 SARA on CPAP [G47.33, Z99.89] INVALID FOR* More... Bronchitis [J40] INVALID FOR* Tobacco use disorder [F17.200] INVALID FOR* Parasomnia [G47.50] INVALID FOR* More... SARA (obstructive sleep apnea) AHI 22 [G47.33] INVALID FOR*04/30/2017 Chronic left shoulder pain [M25.512, G89.29] INVALID FOR* Memory disturbance [R41.3] INVALID FOR* Pulmonary embolus (HCC) [I26.99] INVALID FOR* Encounter Status:Closed by BREANA HARTMANN CMA on 06/29/18 CTA CHEST W/WO Observed: 06/25/2018 Status: F Source: [place] CONTRAST 11:14 AM [facility] REPOSITORY [facility] Imaging Services [address] [place] [address] CTA Chest W/WO Contrast MR#: [id number] Acct: [id number] Name: POLOROSIO L Rep #: [id number] : 1960 M 58 From: Gini Barth MD PCP: Tadeo Gamboa MD Status: REG CLI Study: CTA Chest W/WO Contrast Date of Exam: 06/25/18 Exam# [id number] Ordering Dr: Cachorro Salinas MD STUDY: CTA CHEST REASON FOR EXAM: Male, 58 years old. History of PE follow- up and comparison to RADIATION DOSAGE (If Supplied By Facility): CTDIvol = ( 14.84 ) mGy, DLP = ( 815.20 ) mGycm TECHNIQUE: The examination was performed with the intravenous administration of 100 ml of Isovue 370 contrast material. Post-processing of the angiographic images was performed, with multiplanar reformation and 3D reconstruction. Individualized dose optimization techniques were used for this CT. COMPARISON: CTA Chest 06/27. Chest x-ray 06/18/2018. FINDINGS: Normal enhancement of the main pulmonary artery and right and left pulmonary arteries. Normal enhancement of the bilateral peripheral pulmonary arteries. There is no demonstrated pulmonary embolism. Normal thoracic aorta and visualized great vessels with only minimal arteriosclerosis involving the arch and descending thoracic aorta. There is no demonstrated aortic dissection. Normal heart and pericardium. Normal mediastinum. Normal hilar regions. Normal visualized trachea and bronchi. The lungs are well expanded. Normal pulmonary parenchyma. Normal pleura. Normal chest wall structures. Age-appropriate osseous structures. Normal visualized upper abdomen. CT/CTA Chest W/WO Contrast IMPRESSION: Normal CTA chest examination, without a demonstrated pulmonary embolism or arterial dissection. Electronically Signed: Gini Barth MD at 7:10 EST , Service support , CC: Cachorro Salinas MD; Tadeo Gamboa MD Manager Med Surg: Signed D-DIMER QUANTITATIVE Collected: 06/25/2018 Status: F Source: [place] (DVT/PE) 11:05 AM [facility] REPOSITORY TYPE CODE TESTS RESULT OUT OF RANGE REFERENCE UNITS LAB L300.8000 0.27-0.49 FEU/ug/m Normal D-DIMER 0.48 QUANT Result Comment: NORMAL D-Dimer level (<0.50) indicates no DVT or PE. Performed By: #### L300.8000 #### [facility] [address] [place], [address] PROGRESS Observed: 06/24/2018 Status: COMPLETED Source: [place] 1:30 PM [facility] REPOSITORY HNO ID: [id number] Author: Perri (Registered Nurse Maternity) Older Service: (none) Author Type: Nurse Practitioner Type: Progress Notes Filed: 06/24/2018 1:35 PM Note Text: CC: Patient presents with: dark urine on Xarelto: x this morning CONTRERAS Polo is a 58 year old male who presents today for dark brown urine. Started with mild dysuria yesterday, this morning noticed urine was dark brown. No bright bleeding or clots. Still has mild dysuria and suprapubic pain. No frequency, urgency, hesitancy, dribbling, decreased stream. No fever or chills. Patient was started on Xarelto two weeks ago for PE. Denies any other unusual bleeding. REVIEW OF SYSTEMS See HPI PAST MEDICAL HISTORY Diagnosis Date - Acute gastritis without mention of hemorrhage - Benign neoplasm of colon - Esophageal reflux - HYPERLIPIDEMIA NEC/NOS 07/08/2005 - Kidney stone 04/23/2010 - Lumbago 03/10/2011 - Lumbosacral spondylosis without myelopathy 03/11/2010 - Obesity, unspecified - Obstructive sleep apnea (adult) (pediatric) 05/22/2011 - SARA on CPAP 05/22/2011 Dr. Salinas. CPAP used. 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 - Type II or unspecified type diabetes mellitus without mention of complication, not stated as uncontrolled - Venous thrombosis 10/08/2009 Postoperative post plantar fasaciaa release PAST SURGICAL HISTORY Procedure Laterality Date - COLONOSCOP W/ OR W/O BRSH SPEC 10/30/08 Colonoscopy - EGD W/O BRSH SPECIMEN W/BX 04/26/2007 Gastritis - EGD W/O OR W/BRUSH/WASH 10/21/2004 EGD - EGD W/O OR W/BRUSH/WASH 04/30/13 EGD - LAPAROSCOPIC CHOLEYCYSTECTOMY 05/04/2013 Cholecystectomy, lap - REPAIR FOREARM TENDON.MUSCLE Right elbow - SCOPE, PLANTAR FASCIOTOMY 09/18/2009 ALLERGIES Influenza Virus Vaccines; Prednisone; Sertraline; Vicodin [Hydrocodone-Acetaminophen] MEDICATIONS rivaroxaban (XARELTO) 15 mg (42)- 20 mg (9) DsPk Take 1 tablet by mouth. Take 1 tablet (15 mg) by mouth twice daily with food for 21 days. Then take 1 tablet (20 mg) by mouth once daily with food for 9 days. insulin glargine (BASAGLAR KWIKPEN U-100 INSULIN) 100 unit/mL (3 mL) inpn Inject subcutaneously 40 units every bedtime clotrimazole-betamethasone (LOTRISONE) cream Apply 1 application to affected area twice daily as needed (rash). glimepiride (AMARYL) 2 mg tablet TAKE 2 TABLETS TWICE A DAY WITH MEALS (BREAKFAST AND DINNER) EASY TOUCH 31 gauge x 1/4 ndle USE DIRECTED DAILY JANUVIA 100 mg tablet TAKE 1 TABLET ONCE DAILY pravastatin (PRAVACHOL) 40 mg tablet Take 1 tablet by mouth daily at bedtime. For cholesterol. metFORMIN (GLUCOPHAGE) 500 mg tablet Take 2 tablets by mouth twice daily. lansoprazole (PREVACID) 30 mg capsule TAKE 1 TO 2 CAPSULES DAILY COMPOUNDED PRESCRIPTION CPAP Replacement parts, including mask, straps, tubing, Diagnosis: SARA on CPAP - ICD9: 327.23, ICD10: G47.33 CPAP CPAP @ 10 cm of water with humidification. Mask (per patient preference) optional chin strap (if indicated), filters, tubing / heated tubing, heated humidity and lifetime supplies. Dx. SARA G47.33 327.23 blood sugar diagnostic (BLOOD GLUCOSE TEST) test strip Test blood sugar(s) 3 times daily. Dx: E11.65 Insulin: No. Please dispense [employer] Pro Easy Touch Test Strips. Code C15 citalopram (CELEXA) 20 mg tablet Take 1 tablet by mouth once daily. mirtazapine (REMERON) 30 mg tablet Take 1 tablet by mouth daily at bedtime. ASPIRIN 81 MG TAB Take one(1) tablet daily. sulfamethoxazole-trimethoprim (BACTRIM DS) 800-160 mg per tablet Take 1 tablet by mouth twice daily for 10 days. FAMILY HISTORY Problem Relation Age of Onset - other (parkinson) Mother - Heart Father CAD- triple bypass - Diabetes Father - Heart Paternal Grandfather - Diabetes Paternal Grandmother Social History Substance Use Topics - Smoking status: Current Every Day Smoker Packs/day: 1.50 Years: 38.00 Types: Cigarettes - Smokeless tobacco: Never Used - Alcohol use No Comment: rarely- once every 2-3 months PHYSICAL EXAM BP 120/81 Pulse 83 Temp 36.5 ?C (97.7 ?F) (Temporal Artery) Resp 16 Wt 108.9 kg (240 lb) SpO2 97% BMI 32.79 kg/m? General Appearance: well appearing, in no acute distress, alert Lungs: lungs clear to auscultation. No wheezing, rhonchi, rales Heart: RRR without murmur, gallop, or rubs. No ectopy Abdomen: Abdomen soft, non-distended. moderate right suprapubic abdominal tenderness with palpation. No guarding or rebound tenderness. Bowel sounds normal and active. No masses, organomegaly but difficult exam due to body habitus. No CVA tenderness. ASSESSMENT/PLAN: 1. Dysuria - ICD9: 788.1, ICD10: R30.0 (primary diagnosis) Acute. Possible UTI - UA positive for large blood and protein - Send urine for URINALYSIS WITH MICROSCOPIC and URINE CULTURE - Begin treatment with Bactrim DS BID for 10 days - Patient is on Xarelto, no active or excessive bleeding. He will likely need to continue this. Will discuss further at his appointment with telephone exchange operator today - If urine culture negative will need to repeat urinalysis 2. Hematuria, unspecified type - ICD9: 599.70, ICD10: R31.9 As above - URINALYSIS WITH MICROSCOPIC - URINE CULTURE Prescription instructions reviewed with patient as applicable. Potential red flag symptoms discussed with the patient. Reviewed appropriate action plan to take if red flag symptoms occur. Patient agreeable to treatment plan. Perri Plummer, HARMAN.BAG LOADER URINALYSIS WITH Collected: 06/24/2018 Status: F Source: [place] MICROSCOPIC 12:19 PM [facility] REPOSITORY TYPE CODE TESTS RESULT OUT OF RANGE REFERENCE UNITS LAB UCOL Yellow Color Yellow LAB [facility] Clear Clarity Abnormal Cloudy Alert LAB UGLUC Negative mg/dL Glucose, Urine Negative LAB UBIL Negative Bilirubin, Urine Negative LAB UKET Negative Ketones, Urine Negative LAB USPG 1.005-1.030 Specific [place], Ur 1.016 LAB UHGB Negative Abnormal Hemoglobin/Blood, 3+ Alert Ur LAB UPH 4.5-8.0 pH 5.0 LAB UPROT Negative mg/dL Protein, Abnormal Urine 30 Alert LAB UUROB Normal Urobilinogen Normal LAB UNITR Negative Nitrites Negative LAB ULKEST Negative Leukest Negative LAB UCOM Comments SEE COMMENT Result Comment: N/A LAB U[facility]OM Urine SEE [place] Comment COMMENT Result Comment: N/A LAB UWBC 0-5 /HPF WBC 0-5 LAB URBC 0-3 /HPF Abnormal Alert RBC >25 Performed By: #### UAWMIC #### [facility] [address] [place], [place] [address] Observed: 06/24/2018 Status: F Source: [place] URINE CULTURE 12:19 PM [facility] REPOSITORY Sp. Request/Comment: - Specimen received in preservative Culture Result - No growth (<1,000 CFU/ml) Performed By: #### URCUL #### [facility] [address] [place], [place] [address] CNOV Observed: 06/24/2018 Status: COMPLETED Source: [place] 11:40 AM [facility] REPOSITORY Office Visit (INTMWS) ROSIO POLO ([id number]) 1960 M NFR Date Time Provider Department 06/24/18 11:40 AM PERRI PLUMMER (ANIRUDH) INTMWS During your visit today, we recorded the following information about you: Temperature Pulse Respiration Blood pressure 97.7 degrees 83/minute 16/minute 120/81 Weight 108.9 kg Perri Plummer APRN.CNP 06/24/2018 12:[address] Salinas know you are having dark brown urine and the urine dip showed large blood. Started on antibiotic to treat possible UTI Perri Plummer APRN.BAG LOADER 06/24/2018 1:35 PM Signed CC: Patient presents with: dark urine on Xarelto: x this morning HPI Rosio Polo is a 58 year old male who presents today for dark brown urine. Started with mild dysuria yesterday, this morning noticed urine was dark brown. No bright bleeding or clots. Still has mild dysuria and suprapubic pain. No frequency, urgency, hesitancy, dribbling, decreased stream. No fever or chills. Patient was started on Xarelto two weeks ago for PE. Denies any other unusual bleeding. REVIEW OF SYSTEMS See HPI PAST MEDICAL HISTORY Diagnosis Date - Acute gastritis without mention of hemorrhage - Benign neoplasm of colon - Esophageal reflux - HYPERLIPIDEMIA NEC/NOS 07/08/2005 - Kidney stone 04/23/2010 - Lumbago 03/10/2011 - Lumbosacral spondylosis without myelopathy 03/11/2010 - Obesity, unspecified - Obstructive sleep apnea (adult) (pediatric) 05/22/2011 - SARA on CPAP 05/22/2011 Dr. Salinas. CPAP used. 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 - Type II or unspecified type diabetes mellitus without mention of complication, not stated as uncontrolled - Venous thrombosis 10/08/2009 Postoperative post plantar fasaciaa release PAST SURGICAL HISTORY Procedure Laterality Date - COLONOSCOP W/ OR W/O [facility] SPEC 10/30/08 Colonoscopy - EGD W/O [facility] SPECIMEN W/BX 04/26/2007 Gastritis - EGD W/O OR W/BRUSH/WASH 10/21/2004 EGD - EGD W/O OR W/BRUSH/WASH 04/30/13 EGD - LAPAROSCOPIC CHOLEYCYSTECTOMY 05/04/2013 Cholecystectomy, lap - REPAIR FOREARM TENDON.MUSCLE Right elbow - SCOPE, PLANTAR FASCIOTOMY 09/18/2009 ALLERGIES Influenza Virus Vaccines; Prednisone; Sertraline; Vicodin [Hydrocodone-Acetaminophen] MEDICATIONS rivaroxaban (XARELTO) 15 mg (42)- 20 mg (9) DsPk Take 1 tablet by mouth. Take 1 tablet (15 mg) by mouth twice daily with food for 21 days. Then take 1 tablet (20 mg) by mouth once daily with food for 9 days. insulin glargine (BASAGLAR KWIKPEN U-100 INSULIN) 100 unit/mL (3 mL) inpn Inject subcutaneously 40 units every bedtime clotrimazole-betamethasone (LOTRISONE) cream Apply 1 application to affected area twice daily as needed (rash). glimepiride (AMARYL) 2 mg tablet TAKE 2 TABLETS TWICE A DAY WITH MEALS (BREAKFAST AND DINNER) EASY TOUCH 31 gauge x 1/4 ndle USE DIRECTED DAILY JANUVIA 100 mg tablet TAKE 1 TABLET ONCE DAILY pravastatin (PRAVACHOL) 40 mg tablet Take 1 tablet by mouth daily at bedtime. For cholesterol. metFORMIN (GLUCOPHAGE) 500 mg tablet Take 2 tablets by mouth twice daily. lansoprazole (PREVACID) 30 mg capsule TAKE 1 TO 2 CAPSULES DAILY COMPOUNDED PRESCRIPTION CPAP Replacement parts, including mask, straps, tubing, Diagnosis: SARA on CPAP - ICD9: 327.23, ICD10: G47.33 CPAP CPAP @ 10 cm of water with humidification. Mask (per patient preference) optional chin strap (if indicated), filters, tubing / heated tubing, heated humidity and lifetime supplies. Dx. SARA G47.33 327.23 blood sugar diagnostic (BLOOD GLUCOSE TEST) test strip Test blood sugar(s) 3 times daily. Dx: E11.65 Insulin: No. Please dispense Health Pro Easy Touch Test Strips. Code C15 citalopram (CELEXA) 20 mg tablet Take 1 tablet by mouth once daily. mirtazapine (REMERON) 30 mg tablet Take 1 tablet by mouth daily at bedtime. ASPIRIN 81 MG TAB Take one(1) tablet daily. sulfamethoxazole-trimethoprim (BACTRIM DS) 800-160 mg per tablet Take 1 tablet by mouth twice daily for 10 days. FAMILY HISTORY Problem Relation Age of Onset - other (parkinson) Mother - Heart Father CAD- triple bypass - Diabetes Father - Heart Paternal Grandfather - Diabetes Paternal Grandmother Social History Substance Use Topics - Smoking status: Current Every Day Smoker Packs/day: 1.50 Years: 38.00 Types: Cigarettes - Smokeless tobacco: Never Used - Alcohol use No Comment: rarely- once every 2-3 months PHYSICAL EXAM BP 120/81 Pulse 83 Temp 36.5 ?C (97.7 ?F) (Temporal Artery) Resp 16 Wt 108.9 kg (240 lb) SpO2 97% BMI 32.79 kg/m? General Appearance: well appearing, in no acute distress, alert Lungs: lungs clear to auscultation. No wheezing, rhonchi, rales Heart: RRR without murmur, gallop, or rubs. No ectopy Abdomen: Abdomen soft, non-distended. moderate right suprapubic abdominal tenderness with palpation. No guarding or rebound tenderness. Bowel sounds normal and active. No masses, organomegaly but difficult exam due to body habitus. No CVA tenderness. ASSESSMENT/PLAN: 1. Dysuria - ICD9: 788.1, ICD10: R30.0 (primary diagnosis) Acute. Possible UTI - UA positive for large blood and protein - Send urine for URINALYSIS WITH MICROSCOPIC and URINE CULTURE - Begin treatment with Bactrim DS BID for 10 days - Patient is on Xarelto, no active or excessive bleeding. He will likely need to continue this. Will discuss further at his appointment with telephone exchange operator today - If urine culture negative will need to repeat urinalysis 2. Hematuria, unspecified type - ICD9: 599.70, ICD10: R31.9 As above - URINALYSIS WITH MICROSCOPIC - URINE CULTURE Prescription instructions reviewed with patient as applicable. Potential red flag symptoms discussed with the patient. Reviewed appropriate action plan to take if red flag symptoms occur. Patient agreeable to treatment plan. Perri Plummer, DIGITAL PUBLISHING SPECIALIST.BAG LOADER Referring Provider: SELF [[id number]] Allergies As of Date: 06/24/2018 Noted Allergy Reaction INFLUENZA VIRUS VACCINES 11/13/2014 14 - Other: See Comments Comments: myalgias PREDNISONE 01/12/2013 2 - Rash SERTRALINE 07/11/2013 8 - GI Upset VICODIN (HYDROCODONE-ACETAMINOPHE*05/11/2013 9 - Itching Date Reviewed: 06/24/2018 Reviewed by: Breana Hartmann Ict Help Desk Technician - Fully Assessed Reason for Visit: dark urine on Xarelto [Other] Cmt: x this morning Primary Visit Diagnosis:Dysuria [R30.0] Other Visit Diagnosis:Hematuria, unspecified type [R31.9] Order(s):UA DIP B/O [[id number]] Order #: [id number] sulfamethoxazole-trimethoprim (BACTRIM DS) 800-160 mg per tabletTake 1 tablet by mouth twice daily for 10 days.Disp: 20 tabletRfl: 0 URINALYSIS WITH MICROSCOPIC [SQUAWMIC] Order #: [id number] URINE CULTURE [SQURCUL] Order #: [id number] FUTURE Prescriptions as of 06/24/2018 Sig: RIVAROXABAN 15 MG (42)-20 MG * Take 1 tablet by mouth. Take * INSULIN GLARGINE (U-100) 100 * Inject subcutaneously 40 unit* CLOTRIMAZOLE-BETAMETHASONE 1 * Apply 1 application to affect* GLIMEPIRIDE 2 MG TABLET TAKE 2 TABLETS TWICE A DAY WI* EASY TOUCH 31 GAUGE X 1/4 NE* USE DIRECTED DAILY JANUVIA 100 MG TABLET TAKE 1 TABLET ONCE DAILY PRAVASTATIN 40 MG TABLET Take 1 tablet by mouth daily * METFORMIN 500 MG TABLET Take 2 tablets by mouth twice* LANSOPRAZOLE 30 MG CAPSULE,DE* TAKE 1 TO 2 CAPSULES DAILY COMPOUNDED PRESCRIPTION CPAP Replacement parts, inclu* CPAP CPAP @ 10 cm of water with hu* BLOOD SUGAR DIAGNOSTIC STRIPS Test blood sugar(s) 3 times d* CITALOPRAM 20 MG TABLET Take 1 tablet by mouth once d* MIRTAZAPINE 30 MG TABLET Take 1 tablet by mouth daily * ASPIRIN 81 MG TABLET Take one(1) tablet daily. SULFAMETHOXAZOLE 800 MG-TRIME* Take 1 tablet by mouth twice * Problem List As Of Date 06/24/2018 Noted Resolved OVERWEIGHT [E66.9] INVALID FOR* Diabetes type 2, uncontrolled (HCC) [E11.65] INVALID FOR* More... Hyperlipemia [E78.5] INVALID FOR* More... Gastroesophageal reflux disease without esophag*INVALID FOR* Cervical rib [Q76.5] INVALID FOR*12/09/2010 Personal history of tobacco use, presenting haz*INVALID FOR*03/29/2014 More... Abdominal pain, generalized [R10.84] INVALID FOR*12/09/2010 Abdominal pain, right upper quadrant [R10.11] INVALID FOR*12/09/2010 Acute gastritis without mention of hemorrhage [*INVALID FOR*12/09/2010 More... BENIGN JOYA SKIN TRUNK [D23.5] INVALID FOR* Calcaneal spur [M77.30] INVALID FOR*12/09/2010 Plantar fascial fibromatosis [M72.2] INVALID FOR*12/09/2010 Abnormality of gait [R26.9] INVALID FOR*12/09/2010 Venous thrombosis [I82.90] INVALID FOR*08/19/2012 Lumbosacral spondylosis without myelopathy [M47*INVALID FOR*03/29/2014 Pain in limb [M79.609] INVALID FOR*03/29/2014 More... Pain in joint, shoulder region [M25.519] INVALID FOR*12/09/2010 Anxiety [F41.9] INVALID FOR* More... Kidney stone [N20.0] INVALID FOR*12/09/2010 More... Lumbago [M54.5] INVALID FOR*03/29/2014 SARA on CPAP [G47.33, Z99.89] INVALID FOR* More... Bronchitis [J40] INVALID FOR* Tobacco use disorder [F17.200] INVALID FOR* Parasomnia [G47.50] INVALID FOR* More... SARA (obstructive sleep apnea) AHI 22 [G47.33] INVALID FOR*04/30/2017 Chronic left shoulder pain [M25.512, G89.29] INVALID FOR* Memory disturbance [R41.3] INVALID FOR* Pulmonary embolus (HCC) [I26.99] INVALID FOR* Other instructions from your clinician: Let Dr. Salinas know you are having dark brown urine and the urine dip showed large blood. Started on antibiotic to treat possible UTI Prescriptions ordered this encounter Disp Refills Start End SULFAMETHOXAZOLE 800 MG-TRIMETHOPRIM* 20 t* 0 06/24/2018 07/04/2018 Cmt: Ok to give generic equivalent Route: ORAL Sig: Take 1 tablet by mouth twice daily for 10 days. Encounter Status:Closed by KAVITHA PERRISammy MEAD on 06/24/18 12 LEAD ELECTROCARDIOGRAM Observed: 06/21/2018 Status: F Source: [place] 2:09 PM [facility] Cardiovascular Services [address] [place] [address] 12 Lead EKG 06/18/18 1410 MR#: [id number] Acct: [id number] Name: ROSIO POLO Cory Rep #: [id number] : 1960 58 From: Nicholas Arevalo MD Attending Dr: Status: DEP ER Ordering Dr: Rohit Emery MD Date: 06/18/18 Location: ED Sex: M C Admitted: Test Reason : SOB Blood Pressure : / mmHG Vent. Rate : 063 BPM Atrial Rate : 063 BPM P-R Int : 136 ms QRS Dur : 098 ms QT Int : 428 ms P-R-T Axes : 000 -24 001 degrees QTc Int : 437 ms Normal sinus rhythm Normal ECG Confirmed by NICHOLAS AREVALO ([id number]), acquisitions editor KRYSTAL DONATO ([id number]) on 06/21/2018 2:08:56 PM Referred By: Confirmed By:NICHOLAS AREVALO 06/21/18 1408 Date Nicholas Arevalo MD CC: Rohit Emery MD; Tadeo Gamboa MD Signed EMERGENCY DEPARTMENT Observed: 06/18/2018 Status: F Source: [place] SUMMARY 2:16 PM [facility] REPOSITORY [facility] Medical Records Department [address] [place] [address] Emergency Department Summary 06/18/18 1411 MR#: [id number] Acct: [id number] Name: ROSIO POLO Rep #: [id number] : 1960 58 From: Rohit Emery MD PCP: Tadeo Gamboa MD Status: REG ER - ER Visit Summary Date of Service: 06/18/18 Chief Complaint: Left-sided chest discomfort and shortness of breath History of Present Illness: The patient is a 58 M who was diagnosed with bilateral subsegmental pulmonary embolus with a low pulmonary embolus severity index who was discharged home on Xarelto. Patient states he has been taking Xarelto. He presents because his home-going instructions informed him to return if he had chest pain or shortness of breath. 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 His definite shortness of breath is inability to get a complete breath. He has persistent left-sided chest pain. He denies leg pain, swelling discoloration. He does have history of prior DVT. He states he was seen by his PCP and had an ultrasound will lower extremity which was negative for DVT. Per old records has history of diabetes. Review of systems otherwise negative please read written note. Physical Examination: Vital signs noted and remarkable for a blood pressure 1 4478 otherwise normal. Head is atraumatic normocephalic. Pupils are equal round reactive. Extraocular muscles are intact. TMs are pearly white with landmarks noted. Nares patent with no drainage. Posterior pharynx without erythema or exudate. Uvula is midline. There is no dysphonia or dysphasia. Trachea is midline. There is no stridor with auscultation of the neck. Heart is regular without murmur, gallop or rub. S1 and S2 are normal. Lungs are clear to auscultation with good movement of air bilaterally. There is no reproducible chest pain and there is no skin lesions noted. Abdomen is soft nontender with no hepatosplenomegaly. There is no asymmetry, swelling, discoloration, leg vein distention, palpable cords or tenderness along the distribution of the deep venous system. Test Results: EKG reveals a sinus rhythm rate of 73 with a normal [place] interval, QRS duration and QT interval. Scott is normal. Chest x-ray was obtained to determine if there is evidence of pulmonary infarct, infiltrate, pneumothorax and any other abnormality the would explain his cough and shortness of breath. Chest x-ray is negative. CBC is normal. Basic metabolic panels marked for glucose of 235 and a diabetic patient Emergency Department Course and Treatment: EKG was obtained to evaluate for cardiac ischemia or right heart strain. Chest x-ray to evaluate for pneumonia, CHF pneumothorax. Also to determine if there is evidence of pulmonary infarct i.e.? Scarring or [place] hump. CBC to evaluate for anemia which could be a cause of his dyspnea. Electrolyte function. Treatment Plan: Since patient's workup is negative and CAT scan revealed sub-submental pulmonary embolus and he reports compliance with Xarelto patient is safe for discharge to home. Disposition: Discharged to home Impression: Left-sided chest pain and dyspnea unknown etiology Recent diagnosis of bilateral pulmonary embolus Hyperglycemia and type II diabetic This note was generated with [employer]ation software. It may contain incorrect words, spelling, and punctuation that were not noted in review of the chart prior to signing ED Disposition - Plan for ED Patient: Disposition: Home or Assisted Living Chief Complaint: Shortness of Breath Instructions: ED Dyspnea Shortness of Breath Referrals: Tadeo Gamboa MD [Primary Care Provider] - 3-5 Days if not improving What to do if you have Problems For any increased pain, shortness of breath, bleeding, nausea or vomiting, chest pain, or any unexpected problems, contact your Primary Care Provider. Call [facility] ([phone]) or report to the closest Emergency Room. Call 911 if necessary. 06/18/18 1416 <Electronically signed by Rohit Emery MD> Date Rohit Emery MD Cosigner Signature (If Indicated): Date CC: Tadeo Gamboa MD CBC W/DIFF, AUTOMATED Collected: 06/18/2018 Status: F Source: [place] 1:45 PM [facility] REPOSITORY TYPE CODE TESTS RESULT OUT OF RANGE REFERENCE UNITS LAB L100.1000 4.4-11.0 K/mm3 Normal WBC 8.6 LAB L100.1200 4.6-6.2 M/mm3 Normal RBC 4.76 LAB L100.1300 13.0-16.5 g/dl Normal HGB 15.1 LAB L100.1400 40-54 % Normal HCT 43.7 LAB L100.1500 80-94 fL Normal MCV 91.8 LAB L100.1600 27.0-32.0 pg Normal MCH 31.7 LAB L100.1700 32-36 g/gl Normal MCHC 34.6 LAB L100.1810 11.6-14.6 % Normal RDW CV 12.4 LAB L100.1820 35.1-43.9 fl Normal RDW SD 41.8 LAB L100.1900 150-450 K/mm3 Normal PLT 209 LAB L100.2000 6.2-12.0 fl Normal MPV 10.4 LAB L100.2100 47-70 % High NEUT% 73.1 LAB L100.2200 19-41 % Low LY% 15.3 LAB L100.2300 0-10 % High MONO% 10.2 LAB L100.2400 0-5 % Normal EO% 1.0 LAB L100.2500 0-1 % Normal BASO% 0.3 LAB L100.2550 0.0-0.9 % Normal IM GRAN % 0.100 Result Comment: IG% - Immature Granulocytes (promyelocytes, myelocytes and metamyelocytes) > 1% indicates that a LEFT SHIFT is Present. LAB L100.2620 2.0-7.7 X10 3/uL Normal Absolute Neut 6.3 LAB L100.2720 0.83-4.51 X10 3/ul Normal Absolute Lymph 1.32 Performed By: #### L100.0100 #### [facility] [address] [facility]. [place], [place], [address] BASIC METABOLIC Collected: 06/18/2018 Status: F Source: [place] PROFILE (BMP) 1:45 PM [facility] REPOSITORY TYPE CODE TESTS RESULT OUT OF RANGE REFERENCE UNITS LAB L501.0100 74-106 mg/dL High GLU 235 Result Comment: Glucose result greater than or equal to 200 mg/dL suggests DIABETES MELLITUS per A.D.A. criteria. Please note revised GLUCOSE reference range effective 2017. LAB L501.1000 7-18 mg/dL Normal BUN 10 LAB L501.1100 0.70-1.30 mg/dL Normal CREAT,SERUM 1.01 Result Comment: The validity of the calculated GFR AND GFRAA in patients over 70 years has not been determined. Clinical correlation is essential. LAB L501.1110 >60 mL/min Normal EST GFR 80 Result Comment: Non- GFR Calc LAB L501.1115 >60 mL/min Normal EST GFR - AA 97 Result Comment: GFR Calc LAB L501.1255 ml/min Normal Estimated CRCL 85.37 LAB L501.1300 10-20 RATIO Low BUN/CRE 9.9 LAB L501.2200 8.5-10 mg/dL Normal .1 CA 9.0 LAB L501.5300 136-14 mmol/L Normal 5 NA 139 LAB L501.5600 3.5-5. mmol/L Normal 1 K 4.4 LAB L501.5900 98-107 mmol/L Normal CL 103 LAB L501.6100 21.0-3 mmol/L Normal 2.0 CO2 29.0 LAB L501.6200 5-15 Normal GAP 7 Performed By: #### L500.2500 #### [facility] [address] [facility] [place], [address] CHEST PA AND LATERAL Observed: 06/18/2018 Status: F Source: [place] 1:38 PM [facility] REPOSITORY [facility] Imaging Services [address] [place] [address] Chest PA and Lateral MR#: [id number] Acct: [id number] Name: ROSIO POLO Rep #: [id number] : 1960 M 58 From: Carlton Ortiz MD PCP: Tadeo Gamboa MD Status: DEP ER Study: Chest PA and Lateral Date of Exam: 06/18/18 Exam# [id number] Ordering Dr: Rohit Emery MD STUDY: X-RAY CHEST REASON FOR EXAM: Male, 58 years old. Shortness of breath and chest tightness. TECHNIQUE: PA and lateral views of the chest. COMPARISON: Comparison is made with prior examination dated January 25, 2016. FINDINGS: EKG electrodes are seen. The lungs are clear and expanded. There is no demonstrated pleural abnormality. Normal size heart. Normal mediastinum and keenan. Normal visualized pulmonary arteries. Normal visualized aortic arch and descending thoracic aorta. There is demineralization of the osseous structures. Normal visualized ribs, clavicles, and shoulders. There is no demonstrated abnormality of the visualized soft tissue structures of the upper abdomen. RAD/Chest PA and Lateral IMPRESSION: No acute abnormality is seen. Electronically Signed: Carlton Ortiz MD at 14:47 EST Tel [phone], Service support , CC: Rohit Emery MD; Tadeo Gamboa MD Manager Med Surg: Signed 12 LEAD ELECTROCARDIOGRAM Observed: 06/14/2018 Status: F Source: [place] 3:46 PM [facility] REPOSITORY [facility] Cardiovascular Services [address] [place] [address] 12 Lead EKG 06/12/18 1514 MR#: [id number] Acct: [id number] Name: ROSIO POLO Rep #: [id number] : 1960 58 From: Casey Downey MD Attending Dr: Status: DEP ER Ordering Dr: Nicholas Wagner MD Date: 06/12/18 Location: ED Sex: M C Admitted: Test Reason : SOB Blood Pressure : / mmHG Vent. Rate : 073 BPM Atrial Rate : 073 BPM P-R Int : 154 ms QRS Dur : 094 ms QT Int : 416 ms P-R-T Axes : -09 -28 000 degrees QTc Int : 458 ms Normal sinus rhythm Normal ECG Confirmed by CASEY DOWNEY MD ([id number]), acquisitions editor KRYSTAL DONATO ([id number]) on 06/14/2018 3:45:51 PM Referred By: OMAR Confirmed By:CASEY DOWNEY MD 06/14/18 1545 Date Casey Downey MD CC: Nicholas Wagner MD; Tadeo Gamboa MD Signed PROGRESS Observed: 06/14/2018 Status: COMPLETED Source: [place] 11:48 AM [facility] REPOSITORY HNO ID: [id number] Author: Perri Tamayo) Older Service: (none) Author Type: Nurse Practitioner Type: Progress Notes Filed: 06/14/2018 2:04 PM Note Text: CC: Patient presents with: ER F/U: ER visit 06/13/18 for Pulmonary Embolism in bilateral lungs HPI Rosio Polo is a 58 year old male who presents today for ER follow-up. Facility: [facility] Date of visit: 06/12/18 Reason for visit: shortness of breath x 2 to 3 weeks, worsening Hospital course: EKG- SR at 73, CBC, chemistry, troponin, BNP, coags normal. CT scan showed findings suspicious for pulmonary emboli however there are linear artifacts limiting quality of study. No further work-up. Diagnosis: PE Discharge: Started on Xarelto Current symptoms: Still some shortness of breath but has improved. Mostly with exertion. Mild left sided chest discomfort, worse with deep breath. Non-exertional. Does not radiate. No associated symptoms with chest discomfort including heart palpitations, shortness of breath, sweating, nausea. History of provoked DVT left leg following foot surgery about 10 years ago. Intermittent calf discomfort and swelling since then but none currently. Also reports cough that just started, productive with white sputum and no hemoptysis. Chest congestion x 3 weeks, thought it was due to cats. No upper respiratory symptoms, fever, chills, wheezing. REVIEW OF SYSTEMS See HPI PAST MEDICAL HISTORY Diagnosis Date - Acute gastritis without mention of hemorrhage - Benign neoplasm of colon - Esophageal reflux - HYPERLIPIDEMIA NEC/NOS 07/08/2005 - Kidney stone 04/23/2010 - Lumbago 03/10/2011 - Lumbosacral spondylosis without myelopathy 03/11/2010 - Obesity, unspecified - Obstructive sleep apnea (adult) (pediatric) 05/22/2011 - SARA on CPAP 05/22/2011 Dr. Salinas. CPAP used. 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 - Type II or unspecified type diabetes mellitus without mention of complication, not stated as uncontrolled - Venous thrombosis 10/08/2009 Postoperative post plantar fasaciaa release PAST SURGICAL HISTORY Procedure Laterality Date - COLONOSCOP W/ OR W/O [facility] SPEC 10/30/08 Colonoscopy - EGD W/O [facility] SPECIMEN W/BX 04/26/2007 Gastritis - EGD W/O OR W/BRUSH/WASH 10/21/2004 EGD - EGD W/O OR W/BRUSH/WASH 04/30/13 EGD - LAPAROSCOPIC CHOLEYCYSTECTOMY 05/04/2013 Cholecystectomy, lap - REPAIR FOREARM TENDON.MUSCLE Right elbow - SCOPE, PLANTAR FASCIOTOMY 09/18/2009 ALLERGIES Influenza Virus Vaccines; Prednisone; Sertraline; Vicodin [Hydrocodone-Acetaminophen] MEDICATIONS rivaroxaban (XARELTO) 15 mg (42)- 20 mg (9) DsPk Take 1 tablet by mouth. Take 1 tablet (15 mg) by mouth twice daily with food for 21 days. Then take 1 tablet (20 mg) by mouth once daily with food for 9 days. insulin glargine (BASAGLAR KWIKPEN U-100 INSULIN) 100 unit/mL (3 mL) inpn Inject subcutaneously 40 units every bedtime clotrimazole-betamethasone (LOTRISONE) cream Apply 1 application to affected area twice daily as needed (rash). glimepiride (AMARYL) 2 mg tablet TAKE 2 TABLETS TWICE A DAY WITH MEALS (BREAKFAST AND DINNER) EASY TOUCH 31 gauge x 1/4 ndle USE DIRECTED DAILY JANUVIA 100 mg tablet TAKE 1 TABLET ONCE DAILY pravastatin (PRAVACHOL) 40 mg tablet Take 1 tablet by mouth daily at bedtime. For cholesterol. metFORMIN (GLUCOPHAGE) 500 mg tablet Take 2 tablets by mouth twice daily. lansoprazole (PREVACID) 30 mg capsule TAKE 1 TO 2 CAPSULES DAILY COMPOUNDED PRESCRIPTION CPAP Replacement parts, including mask, straps, tubing, Diagnosis: SARA on CPAP - ICD9: 327.23, ICD10: G47.33 CPAP CPAP @ 10 cm of water with humidification. Mask (per patient preference) optional chin strap (if indicated), filters, tubing / heated tubing, heated humidity and lifetime supplies. Dx. SARA G47.33 327.23 blood sugar diagnostic (BLOOD GLUCOSE TEST) test strip Test blood sugar(s) 3 times daily. Dx: E11.65 Insulin: No. Please dispense Health Pro Easy Touch Test Strips. Code C15 citalopram (CELEXA) 20 mg tablet Take 1 tablet by mouth once daily. mirtazapine (REMERON) 30 mg tablet Take 1 tablet by mouth daily at bedtime. ASPIRIN 81 MG TAB Take one(1) tablet daily. FAMILY HISTORY Problem Relation Age of Onset - other (parkinson) Mother - Heart Father CAD- triple bypass - Diabetes Father - Heart Paternal Grandfather - Diabetes Paternal Grandmother Social History Substance Use Topics - Smoking status: Current Every Day Smoker Packs/day: 1.50 Years: 38.00 Types: Cigarettes - Smokeless tobacco: Never Used - Alcohol use No Comment: rarely- once every 2-3 months PHYSICAL EXAM BP 132/68 (BP Site: Left Arm, BP Position: Sitting, BP Cuff Size: Extra Large Adult) Pulse 79 Temp 37.2 ?C (99 ?F) (Esophageal) Resp 18 Wt 110.2 kg (243 lb) SpO2 96% BMI 33.20 kg/m? General Appearance: well appearing, in no acute distress, alert Pysch: mood and affect broad and appropriate Lungs: Lungs clear to auscultation. No wheezing, rhonchi, rales Heart: RRR without murmur, gallop, or rubs. No ectopy Extremities: No deformities, edema, skin discoloration, clubbing or cyanosis. Good capillary refill. , Pulses: 2+, No cords. No calf tenderness. Mario's sign negative. ASSESSMENT/PLAN: 1. Other acute pulmonary embolism without acute cor pulmonale (HCC) - ICD9: 415.19, ICD10: I26.99 - Etiology unclear. Previous provoked DVT years ago following foot surgery but no current conditions that would cause PE. Chest CTA unclear whether findings were actually emboli due to artifact. - No evidence of DVT on exam but will check US LEG VEIN DVT [facility]. If negative will consider consult with hematology. - CONSULT TO PULMONARY MEDICINE for further evaluation and recommendations. Patient already has appointment this week with Dr. Salinas - Continue with Luzmaria until further notice - Follow-up in office pending results of ultrasound Prescription instructions reviewed with patient as applicable. Potential red flag symptoms discussed with the patient. Reviewed appropriate action plan to take if red flag symptoms occur. Patient agreeable to treatment plan. Perri Plummer APRN.ANIRUDH CNOV Observed: 06/14/2018 Status: COMPLETED Source: [place] 11:20 AM [facility] REPOSITORY Office Visit (INTMWS) ROSIO POLO ([id number]) 1960 M NFR Date Time Provider Department 06/14/18 11:20 AM PERRI PLUMMER (ANIRUDH) INTMWS During your visit today, we recorded the following information about you: Temperature Pulse Respiration Blood pressure 99 degrees 79/minute 18/minute 132/68 Weight 110.2 kg Perri Plummer [employer]IST[employer]ANDAR 06/14/2018 2:04 PM Signed CC: Patient presents with: ER F/U: ER visit 06/13/18 for Pulmonary Embolism in bilateral lungs HPI Rosio Polo is a 58 year old male who presents today for ER follow-up. Facility: [facility] Date of visit: 06/12/18 Reason for visit: shortness of breath x 2 to 3 weeks, worsening Hospital course: EKG- SR at 73, CBC, chemistry, troponin, BNP, coags normal. CT scan showed findings suspicious for pulmonary emboli however there are linear artifacts limiting quality of study. No further work-up. Diagnosis: PE Discharge: Started on Xarelto Current symptoms: Still some shortness of breath but has improved. Mostly with exertion. Mild left sided chest discomfort, worse with deep breath. Non-exertional. Does not radiate. No associated symptoms with chest discomfort including heart palpitations, shortness of breath, sweating, nausea. History of provoked DVT left leg following foot surgery about 10 years ago. Intermittent calf discomfort and swelling since then but none currently. Also reports cough that just started, productive with white sputum and no hemoptysis. Chest congestion x 3 weeks, thought it was due to cats. No upper respiratory symptoms, fever, chills, wheezing. REVIEW OF SYSTEMS See HPI PAST MEDICAL HISTORY Diagnosis Date - Acute gastritis without mention of hemorrhage - Benign neoplasm of colon - Esophageal reflux - HYPERLIPIDEMIA NEC/NOS 07/08/2005 - Kidney stone 04/23/2010 - Lumbago 03/10/2011 - Lumbosacral spondylosis without myelopathy 03/11/2010 - Obesity, unspecified - Obstructive sleep apnea (adult) (pediatric) 05/22/2011 - SARA on CPAP 05/22/2011 Dr. Salinas. CPAP used. 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 - Type II or unspecified type diabetes mellitus without mention of complication, not stated as uncontrolled - Venous thrombosis 10/08/2009 Postoperative post plantar fasaciaa release PAST SURGICAL HISTORY Procedure Laterality Date - COLONOSCOP W/ OR W/O BRSH SPEC 10/30/08 Colonoscopy - EGD W/O BRSH SPECIMEN W/BX 04/26/2007 Gastritis - EGD W/O OR W/BRUSH/WASH 10/21/2004 EGD - EGD W/O OR W/BRUSH/WASH 04/30/13 EGD - LAPAROSCOPIC CHOLEYCYSTECTOMY 05/04/2013 Cholecystectomy, lap - REPAIR FOREARM TENDON.MUSCLE Right elbow - SCOPE, PLANTAR FASCIOTOMY 09/18/2009 ALLERGIES Influenza Virus Vaccines; Prednisone; Sertraline; Vicodin [Hydrocodone-Acetaminophen] MEDICATIONS rivaroxaban (XARELTO) 15 mg (42)- 20 mg (9) DsPk Take 1 tablet by mouth. Take 1 tablet (15 mg) by mouth twice daily with food for 21 days. Then take 1 tablet (20 mg) by mouth once daily with food for 9 days. insulin glargine (BASAGLAR KWIKPEN U-100 INSULIN) 100 unit/mL (3 mL) inpn Inject subcutaneously 40 units every bedtime clotrimazole-betamethasone (LOTRISONE) cream Apply 1 application to affected area twice daily as needed (rash). glimepiride (AMARYL) 2 mg tablet TAKE 2 TABLETS TWICE A DAY WITH MEALS (BREAKFAST AND DINNER) EASY TOUCH 31 gauge x 1/4 ndle USE DIRECTED DAILY JANUVIA 100 mg tablet TAKE 1 TABLET ONCE DAILY pravastatin (PRAVACHOL) 40 mg tablet Take 1 tablet by mouth daily at bedtime. For cholesterol. metFORMIN (GLUCOPHAGE) 500 mg tablet Take 2 tablets by mouth twice daily. lansoprazole (PREVACID) 30 mg capsule TAKE 1 TO 2 CAPSULES DAILY COMPOUNDED PRESCRIPTION CPAP Replacement parts, including mask, straps, tubing, Diagnosis: SARA on CPAP - ICD9: 327.23, ICD10: G47.33 CPAP CPAP @ 10 cm of water with humidification. Mask (per patient preference) optional chin strap (if indicated), filters, tubing / heated tubing, heated humidity and lifetime supplies. Dx. SARA G47.33 327.23 blood sugar diagnostic (BLOOD GLUCOSE TEST) test strip Test blood sugar(s) 3 times daily. Dx: E11.65 Insulin: No. Please dispense Health Pro Easy Touch Test Strips. Code C15 citalopram (CELEXA) 20 mg tablet Take 1 tablet by mouth once daily. mirtazapine (REMERON) 30 mg tablet Take 1 tablet by mouth daily at bedtime. ASPIRIN 81 MG TAB Take one(1) tablet daily. FAMILY HISTORY Problem Relation Age of Onset - other (parkinson) Mother - Heart Father CAD- triple bypass - Diabetes Father - Heart Paternal Grandfather - Diabetes Paternal Grandmother Social History Substance Use Topics - Smoking status: Current Every Day Smoker Packs/day: 1.50 Years: 38.00 Types: Cigarettes - Smokeless tobacco: Never Used - Alcohol use No Comment: rarely- once every 2-3 months PHYSICAL EXAM BP 132/68 (BP Site: Left Arm, BP Position: Sitting, BP Cuff Size: Extra Large Adult) Pulse 79 Temp 37.2 ?C (99 ?F) (Esophageal) Resp 18 Wt 110.2 kg (243 lb) SpO2 96% BMI 33.20 kg/m? General Appearance: well appearing, in no acute distress, alert Pysch: mood and affect broad and appropriate Lungs: Lungs clear to auscultation. No wheezing, rhonchi, rales Heart: RRR without murmur, gallop, or rubs. No ectopy Extremities: No deformities, edema, skin discoloration, clubbing or cyanosis. Good capillary refill. , Pulses: 2+, No cords. No calf tenderness. Mario's sign negative. ASSESSMENT/PLAN: 1. Other acute pulmonary embolism without acute cor pulmonale (HCC) - ICD9: 415.19, ICD10: I26.99 - Etiology unclear. Previous provoked DVT years ago following foot surgery but no current conditions that would cause PE. Chest CTA unclear whether findings were actually emboli due to artifact. - No evidence of DVT on exam but will check US LEG VEIN DVT [facility]. If negative will consider consult with hematology. - CONSULT TO PULMONARY MEDICINE for further evaluation and recommendations. Patient already has appointment this week with Dr. Salinas - Continue with Luzmaria until further notice - Follow-up in office pending results of ultrasound Prescription instructions reviewed with patient as applicable. Potential red flag symptoms discussed with the patient. Reviewed appropriate action plan to take if red flag symptoms occur. Patient agreeable to treatment plan. Perri Plummer APRN.BAG LOADER Referring Provider: TADEO GAMBOA [[id number]] Allergies As of Date: 06/14/2018 Noted Allergy Reaction INFLUENZA VIRUS VACCINES 11/13/2014 14 - Other: See Comments Comments: myalgias PREDNISONE 01/12/2013 2 - Rash SERTRALINE 07/11/2013 8 - GI Upset VICODIN (HYDROCODONE-ACETAMINOPHE*05/11/2013 9 - Itching Date Reviewed: 06/14/2018 Reviewed by: Fatou Dodd LPN - Fully Assessed Reason for Visit: ER F/U [41] Cmt: ER visit 06/13/18 for Pulmonary Embolism in bilateral lungs Primary Visit Diagnosis:Other acute pulmonary embolism without acute cor pulmonale (HCC) [I26.99] Order(s):US LEG VEIN DVT [facility] [[id number]] Order #: [id number] FUTURE CONSULT TO PULMONARY MEDICINE [[id number]] Order #: [id number]: 1 Prescriptions as of 06/14/2018 Sig: RIVAROXABAN 15 MG (42)-20 MG * Take 1 tablet by mouth. Take * INSULIN GLARGINE (U-100) 100 * Inject subcutaneously 40 unit* CLOTRIMAZOLE-BETAMETHASONE 1 * Apply 1 application to affect* GLIMEPIRIDE 2 MG TABLET TAKE 2 TABLETS TWICE A DAY WI* EASY TOUCH 31 GAUGE X 1/4 NE* USE DIRECTED DAILY JANUVIA 100 MG TABLET TAKE 1 TABLET ONCE DAILY PRAVASTATIN 40 MG TABLET Take 1 tablet by mouth daily * METFORMIN 500 MG TABLET Take 2 tablets by mouth twice* LANSOPRAZOLE 30 MG CAPSULE,DE* TAKE 1 TO 2 CAPSULES DAILY COMPOUNDED PRESCRIPTION CPAP Replacement parts, inclu* CPAP CPAP @ 10 cm of water with hu* BLOOD SUGAR DIAGNOSTIC STRIPS Test blood sugar(s) 3 times d* CITALOPRAM 20 MG TABLET Take 1 tablet by mouth once d* MIRTAZAPINE 30 MG TABLET Take 1 tablet by mouth daily * ASPIRIN 81 MG TABLET Take one(1) tablet daily. Problem List As Of Date 06/14/2018 Noted Resolved OVERWEIGHT [E66.9] INVALID FOR* Diabetes type 2, uncontrolled (HCC) [E11.65] INVALID FOR* More... Hyperlipemia [E78.5] INVALID FOR* More... Gastroesophageal reflux disease without esophag*INVALID FOR* Cervical rib [Q76.5] INVALID FOR*12/09/2010 Personal history of tobacco use, presenting haz*INVALID FOR*03/29/2014 More... Abdominal pain, generalized [R10.84] INVALID FOR*12/09/2010 Abdominal pain, right upper quadrant [R10.11] INVALID FOR*12/09/2010 Acute gastritis without mention of hemorrhage [*INVALID FOR*12/09/2010 More... BENIGN JOYA SKIN TRUNK [D23.5] INVALID FOR* Calcaneal spur [M77.30] INVALID FOR*12/09/2010 Plantar fascial fibromatosis [M72.2] INVALID FOR*12/09/2010 Abnormality of gait [R26.9] INVALID FOR*12/09/2010 Venous thrombosis [I82.90] INVALID FOR*08/19/2012 Lumbosacral spondylosis without myelopathy [M47*INVALID FOR*03/29/2014 Pain in limb [M79.609] INVALID FOR*03/29/2014 More... Pain in joint, shoulder region [M25.519] INVALID FOR*12/09/2010 Anxiety [F41.9] INVALID FOR* More... Kidney stone [N20.0] INVALID FOR*12/09/2010 More... Lumbago [M54.5] INVALID FOR*03/29/2014 SARA on CPAP [G47.33, Z99.89] INVALID FOR* More... Bronchitis [J40] INVALID FOR* Tobacco use disorder [F17.200] INVALID FOR* Parasomnia [G47.50] INVALID FOR* More... SARA (obstructive sleep apnea) AHI 22 [G47.33] INVALID FOR*04/30/2017 Chronic left shoulder pain [M25.512, G89.29] INVALID FOR* Memory disturbance [R41.3] INVALID FOR* Pulmonary embolus (HCC) [I26.99] INVALID FOR* Encounter Status:Closed by PERRI PLUMMER CNP on 06/14/18 DISCHARGE INSTRUCTION Observed: 06/13/2018 Status: F Source: [place] 12:17 AM [facility] Medical Records Department [address] [place] [address] Discharge Instruction 06/12/18 1821 MR#: [id number] Acct: [id number] Name: ROSIO POLO Rep #: [id number] : 1960 58 From: Nicholas Wagner MD PCP: Tadeo Gamboa MD Status: DEP ER ED Disposition - Plan for ED Patient: Chief Complaint: Shortness of Breath Instructions: Pulmonary Embolism Prescriptions: Rivaroxaban [Xarelto] 15 mg PO BID 21 Days #42 tab Referrals: Tadeo Gamboa MD [Primary Care Provider] - What to do if you have Problems For any increased pain, shortness of breath, bleeding, nausea or vomiting, chest pain, or any unexpected problems, contact your Primary Care Provider. Call [facility] ([phone]) or report to the closest Emergency Room. Call 911 if necessary. 06/13/18 0017 <Electronically signed by Nicholas Wagner MD> Date Nicholas Wagner MD Cosigner Signature (If Indicated): Date CC: Tadeo Gamboa MD EMERGENCY DEPARTMENT Observed: 06/13/2018 Status: F Source: [place] SUMMARY 12:17 AM [facility] Medical Records Department [address] [place] [address] Emergency Department Summary 06/12/18 1522 MR#: [id number] Acct: [id number] Name: ROSIO POLO Rep #: [id number] : 1960 58 From: Nicholas Wagner MD PCP: Tadeo Gamboa MD Status: DEP ER - ER Visit Summary Date of Service: 06/12/18 Chief Complaint: Shortness of breath History of Present Illness: The patient is a 58 M with shortness of breath for 2 or 3 weeks. It seems to be getting worse over the last 2-3 weeks. It is worse throughout the day and better at night. He is concerned it might be related to exposure to a cat. He never had this before. No chest pain. No cough or sputum. No fevers. He has a history of DVT which was provoked by foot surgery. He is only on aspirin but no other thinners. Denies any leg swelling or calf pain. Denies nausea, vomiting, lightheadedness, or palpitations. Physical Examination: Blood pressure 160/86. Otherwise vitals normal. Afebrile. Patient is in no acute distress. Sitting, breathing, and speaking comfortably. HEENT exam unremarkable. Lungs clear in all burch. Heart regular rate and rhythm. Abdomen soft. Extremities nontender with no edema. Skin appears normal without diaphoresis or pallor. Test Results: EKG showed sinus rhythm at a rate of 73 with no signs of ischemia or infarction pattern. Laboratory studies and CT are pending. Emergency Department Course and Treatment: Patient may have an infectious or allergic cause. I was also concern for cardiac, vascular, and respiratory causes. He was treated with a DuoNeb while awaiting results. Will monitor. CBC normal. Glucose 198. Troponin normal. BNP normal. Coags pending. CT showed bilateral subsegmental PEs suspected. Patient was discussed with Dr. Lu. He was on Lovenox in the past. I am suspecting he will be on anticoagulation potentially for long-term. I spoke with the patient and we will start Xarelto. Follow-up with the office. His PESI score is low risk and he has no significant risk for bleeding. He was given precautions. He should return if he has any worsening of his PE symptoms or any issues with medication. Treatment Plan: As above Disposition: Discharge Impression: 1. Bilateral pulmonary emboli This note was generated with Breeze dictation software. It may contain incorrect words, spelling, and punctuation that were not noted in review of the chart prior to signing ED Disposition - Plan for ED Patient: Chief Complaint: Shortness of Breath Referrals: Tadeo Gamboa MD [Primary Care Provider] - What to do if you have Problems For any increased pain, shortness of breath, bleeding, nausea or vomiting, chest pain, or any unexpected problems, contact your Primary Care Provider. Call [facility] ([phone]) or report to the closest Emergency Room. Call 911 if necessary. 06/13/18 0017 <Electronically signed by Nicholas Wagner MD> Date Nicholas Wagner MD Cosigner Signature (If Indicated): Date CC: Tadeo Gamboa MD CBC W/DIFF, AUTOMATED Collected: 06/12/2018 Status: F Source: [place] 3:35 PM [facility] REPOSITORY TYPE CODE TESTS RESULT OUT OF RANGE REFERENCE UNITS LAB L100.1000 4.4-11.0 K/mm3 Normal WBC 8.4 LAB L100.1200 4.6-6.2 M/mm3 Normal RBC 4.64 LAB L100.1300 13.0-16.5 g/dl Normal HGB 14.8 LAB L100.1400 40-54 % Normal HCT 42.2 LAB L100.1500 80-94 fL Normal MCV 90.9 LAB L100.1600 27.0-32.0 pg Normal MCH 31.9 LAB L100.1700 32-36 g/gl Normal MCHC 35.1 LAB L100.1810 11.6-14.6 % Normal RDW CV 12.4 LAB L100.1820 35.1-43.9 fl Normal RDW SD 40.9 LAB L100.1900 150-450 K/mm3 Normal PLT 193 LAB L100.2000 6.2-12.0 fl Normal MPV 10.4 LAB L100.2100 47-70 % High NEUT% 70.4 LAB L100.2200 19-41 % Normal LY% 19.0 LAB L100.2300 0-10 % Normal MONO% 8.7 LAB L100.2400 0-5 % Normal EO% 1.4 LAB L100.2500 0-1 % Normal BASO% 0.4 LAB L100.2550 0.0-0.9 % Normal IM GRAN % 0.100 Result Comment: IG% - Immature Granulocytes (promyelocytes, myelocytes and metamyelocytes) > 1% indicates that a LEFT SHIFT is Present. LAB L100.2620 2.0-7.7 X10 3/uL Normal Absolute Neut 5.9 LAB L100.2720 0.83-4.51 X10 3/ul Normal Absolute Lymph 1.60 Performed By: #### L100.0100 #### [facility] [address] [place], [place], [id number] BASIC METABOLIC Collected: 06/12/2018 Status: F Source: [place] PROFILE (BMP) 3:35 PM [facility] REPOSITORY TYPE CODE TESTS RESULT OUT OF RANGE REFERENCE UNITS LAB L501.0100 74-106 mg/dL High GLU 198 Result Comment: Fasting Glucose result greater than or equal to 126 mg/dL suggests DIABETES MELLITUS per A.D.A. criteria. Please note revised GLUCOSE reference range effective 2017. LAB L501.1000 7-18 mg/dL Normal BUN 9 LAB L501.1100 0.70-1.30 mg/dL Normal CREAT,SERUM 1.01 Result Comment: The validity of the calculated GFR AND GFRAA in patients over 70 years has not been determined. Clinical correlation is essential. LAB L501.1110 >60 mL/min Normal EST GFR 80 Result Comment: Non- GFR Calc LAB L501.1115 >60 mL/min Normal EST GFR - AA 97 Result Comment: GFR Calc LAB L501.1255 ml/min Normal Estimated CRCL 85.37 LAB L501.1300 10-20 RATIO Low BUN/CRE 8.9 LAB L501.2200 8.5-10 mg/dL Low .1 CA 8.3 LAB L501.5300 136-14 mmol/L Normal 5 NA 137 LAB L501.5600 3.5-5. mmol/L Normal 1 K 4.0 LAB L501.5900 98-107 mmol/L Normal CL 105 LAB L501.6100 21.0-3 mmol/L Normal 2.0 CO2 28.0 LAB L501.6200 5-15 Low GAP 4 Performed By: #### L500.2500, L501.4010 #### [facility] [address] [place], [place], [address] TROPONIN-I Collected: 06/12/2018 Status: F Source: [place] 3:[address] [facility] REPOSITORY TYPE CODE TESTS RESULT OUT OF RANGE REFERENCE UNITS LAB L501.4010 <0.045 ng/mL Normal < 0.015 TROPONIN-I Result Comment: TROPONIN-I EXPECTED VALUES <0.045 Negative 0.045 - 0.590 Consistent with Cardiac Damage > OR = 0.600 Critical Value Not every elevated troponin is indicative of AK. These values should be used with clinical judgement in examining the patient's clinical picture for diagnosis. To establish a diagnosis of AK versus myocardial injury, there must be a demonstrated rise and/or fall in the troponin values, in addition to ischemic symptoms, EKG changes, new regional wall motion abnormality, and/or angiographical evidence. PLEASE NOTE: REFERENCE RANGES EDITED 17 Performed By: #### L500.2500, L501.4010 #### [facility] [address] [place], [address] BNP,B-TYPE NATRIURETIC Collected: 06/12/2018 Status: F Source: [place] PEPTIDE 3:35 PM [facility] REPOSITORY TYPE CODE TESTS RESULT OUT OF RANGE REFERENCE UNITS LAB L503.6620 0-100 pg/mL Normal B-TYPE 32.6 GONZALO PEP Performed By: #### L503.6620 #### [facility] [address] [place], [address] PROTHROMBIN TIME W/INR Collected: 06/12/2018 Status: F Source: [place] 3:35 PM [facility] REPOSITORY TYPE CODE TESTS RESULT OUT OF RANGE REFERENCE UNITS LAB L300.4150 11.7-14.9 SECONDS Normal PROTIME 13.1 LAB L300.4200 Normal INR 1.0 Performed By: #### L300.3900, L300.4310 #### [facility] [address], [address] PARTIAL THROMBOPLAST Collected: 06/12/2018 Status: F Source: [place] TIME 3:35 PM [facility] REPOSITORY TYPE CODE TESTS RESULT OUT OF RANGE REFERENCE UNITS LAB L300.4310 24.1-36.2 Seconds Normal PTT 29.4 Performed By: #### L300.3900, L300.4310 #### [facility] [address] [place], [address] CTA CHEST W/WO Observed: 06/12/2018 Status: F Source: [place] CONTRAST 3:[address] [facility] REPOSITORY [facility] Imaging Services [address] [place] [address] CTA Chest W/WO Contrast MR#: [id number] Acct: [id number] Name: ROSIO POLO Rep #: [id number] : 1960 M 58 From: Feliz Salas MD PCP: Tadeo Gamboa MD Status: REG ER Study: CTA Chest W/WO Contrast Date of Exam: 06/12/18 Exam# [id number] Ordering Dr: Nicholas Wagner MD STUDY: CTA CHEST REASON FOR EXAM: Male, 58 years old. Short of breath RADIATION DOSAGE (If Supplied By Facility): CTDIvol = ( 13.35 ) mGy, DLP = ( 764.13 ) mGycm TECHNIQUE: The examination was performed with the intravenous administration of 100ML ml of Isovue 370 contrast material. Post-processing of the angiographic images was performed, with multiplanar reformation and 3D reconstruction. Individualized dose optimization techniques were used for this CT. COMPARISON: May 16 2013 FINDINGS: Normal enhancement of the main pulmonary artery and right and left pulmonary arteries. There are multiple intraluminal filling defects within the subsegmental vessels of both lower lobes many of which appear linear and may be due to motion artifact. Some of the filling defects are lobular and are suspicious for emboli. Normal thoracic aorta and visualized great vessels. There is no demonstrated aortic dissection. The heart is normal size although and there appears to be multivessel coronary artery disease Normal mediastinum. Normal hilar regions. Normal visualized trachea and bronchi. The lungs are well expanded. There is mild nonspecific interstitial thickening. There are no focal infiltrates. Normal pleura. Normal chest wall structures. Dorsal spine demonstrates moderate spondylosis Normal visualized upper abdomen. CT/CTA Chest W/WO Contrast IMPRESSION: Mild nonspecific interstitial thickening.. Findings suspicious for pulmonary emboli however there are linear artifacts limiting the quality of the study. Would recommend clinical correlation and further assessment with ventilation/perfusion study and Doppler sonogram of the deep venous system of lower extremities if indicated N.B. : The above information has been verbally conveyed by Feliz Salas MD to Dr. Nicholas Wagner MD, on 06/12/2018 17:06:59 (ET). Electronically Signed: Feliz Salas MD at 17:08 EDT , Service support , CC: Nicholas Wagner MD; Tadeo Gamboa MD Manager Med Surg: Signed PROGRESS Observed: 06/09/2018 Status: COMPLETED Source: [place] 10:59 AM [facility] REPOSITORY HNO ID: [id number] Author: Cassandra Boston Ict Help Desk Technician Service: (none) Author Type: (none) Type: Progress Notes Filed: 06/09/2018 10:59 AM Note Text: Appointment/lab reminder mailed to patient. PROGRESS Observed: 06/08/2018 Status: COMPLETED Source: [place] 12:37 PM [facility] REPOSITORY HNO ID: [id number] Author: Cassandra Boston Cma Service: (none) Author Type: (none) Type: Progress Notes Filed: 06/09/2018 10:59 AM Note Text: PHMA TEAMLET DOCUMENTATION Provider Action/FYI: Please file future labs Two lecn7ad ordered (one for now, one for future appt.) PSR Action/FYI: Pend future labs appt 08/30/18 Call/send reminder about upcoming appointment with labs prior Discuss HM Teamlet has identified patient by name and date of . Team: Dr. Gaetano Trujillo ? Last Office Visit:03/02/2018 ? Next Office Visit: 08/30/2018 ? Last BP/Labs: Blood Pressure: Last 3 Encounter BP Readings: Date: BP: 03/02/2018 120/87 02/22/2018 115/73 01/05/2018 136/80 Lipids: Cholesterol, Total (mg/dL) Date Value 02/17/2018 141 03/27/2017 162 HDL Cholesterol (mg/dL) Date Value 02/17/2018 25 03/27/2017 22 LDL Cholesterol (mg/dL) Date Value 02/17/2018 73 03/27/2017 67 Triglyceride (mg/dL) Date Value 02/17/2018 215 03/27/2017 366 HGB A1C: Lab Results Component Value Date HBA1C 9.1 02/17/2018 HBA1C 9.8 09/15/2017 HBA1C 9.4 09/14/2017 HBA1C 8.6 03/27/2017 TSH: TSH (uU/mL) Date Value 10/09/2017 1.020 12/18/2015 1.650 ) Care Gap: DM Hyperlipidemia Plan: ? Confirm PCP / Status - active ? Type of appointment needed: 08/30/2018 follow up scheduled needs labs prior ? Consultation Appointments: n/a Labs, HM and Immunization: Health Maintenance Due: LUNG CANCER SCREENING due on 2013 DTAP,TDAP,TD(2 - Td) due on 09/21/2016 HBA1C due on 05/20/2018 - order pending Cassandra Boston Cma CNPTOUTREACH Observed: 06/08/2018 Status: COMPLETED Source: [place] 12:00 AM [facility] REPOSITORY Patient Outreach (INTMWS) ROSIO POLO ([id number]) 1960 M NFR Date Time Provider Department 06/08/18 CASSANDRA BOSTON) INTMWS During your visit today, we recorded the following information about you: Cassandra Boston Cma 06/09/2018 10:59 AM Signed PHMA TEAMLET DOCUMENTATION Provider Action/FYI: Please file future labs Two laen8ms ordered (one for now, one for future appt.) PSR Action/FYI: Pend future labs appt 08/30/18 Call/send reminder about upcoming appointment with labs prior Discuss HM Teamlet has identified patient by name and date of . Team: Dr. Gaetano Trujillo ? Last Office Visit:03/02/2018 ? Next Office Visit: 08/30/2018 ? Last BP/Labs: Blood Pressure: Last 3 Encounter BP Readings: Date: BP: 03/02/2018 120/87 02/22/2018 115/73 01/05/2018 136/80 Lipids: Cholesterol, Total (mg/dL) Date Value 02/17/2018 141 03/27/2017 162 HDL Cholesterol (mg/dL) Date Value 02/17/2018 25 03/27/2017 22 LDL Cholesterol (mg/dL) Date Value 02/17/2018 73 03/27/2017 67 Triglyceride (mg/dL) Date Value 02/17/2018 215 03/27/2017 366 HGB A1C: Lab Results Component Value Date HBA1C 9.1 02/17/2018 HBA1C 9.8 09/15/2017 HBA1C 9.4 09/14/2017 HBA1C 8.6 03/27/2017 TSH: TSH (uU/mL) Date Value 10/09/2017 1.020 12/18/2015 1.650 ) Care Gap: DM Hyperlipidemia Plan: ? Confirm PCP / Status - active ? Type of appointment needed: 08/30/2018 follow up scheduled needs labs prior ? Consultation Appointments: n/a Labs, HM and Immunization: Health Maintenance Due: LUNG CANCER SCREENING due on 2013 DTAP,TDAP,TD(2 - Td) due on 09/21/2016 HBA1C due on 05/20/2018 - order pending Cassandra Boston Cma 06/09/2018 10:59 AM Signed Appointment/lab reminder mailed to patient. Allergies As of Date: 06/08/2018 Noted Allergy Reaction INFLUENZA VIRUS VACCINES 11/13/2014 14 - Other: See Comments Comments: myalgias PREDNISONE 01/12/2013 2 - Rash SERTRALINE 07/11/2013 8 - GI Upset VICODIN (HYDROCODONE-ACETAMINOPHE*05/11/2013 9 - Itching Date Reviewed: 03/02/2018 Reviewed by: Breana Hartmann Ict Help Desk Technician - Fully Assessed Reason for Visit: PHMA/Care Gap Outreach [[id number]] Primary Visit Diagnosis:Uncontrolled type 2 diabetes mellitus with hyperglycemia (HCC) [E11.65] Other Visit Diagnosis:Mixed hyperlipidemia [E78.2] Order(s):HGB A1C [[id number]] Order #: [id number] FUTURE ALBUMIN/CREAT RATIO RND UR [SQUACR] Order #: [id number] FUTURE BASIC METABOLIC PNL [SQBMP] Order #: [id number] FUTURE LIPID PANEL BASIC [SQLIPB] Order #: [id number] FUTURE HGB A1C [UECYP1Q] Order #: [id number] FUTURE Prescriptions as of 06/08/2018 Sig: INSULIN GLARGINE (U-100) 100 * Inject subcutaneously 40 unit* CLOTRIMAZOLE-BETAMETHASONE 1 * Apply 1 application to affect* GLIMEPIRIDE 2 MG TABLET TAKE 2 TABLETS TWICE A DAY WI* EASY TOUCH 31 GAUGE X 1/4 NE* USE DIRECTED DAILY JANUVIA 100 MG TABLET TAKE 1 TABLET ONCE DAILY PRAVASTATIN 40 MG TABLET Take 1 tablet by mouth daily * METFORMIN 500 MG TABLET Take 2 tablets by mouth twice* LANSOPRAZOLE 30 MG CAPSULE,DE* TAKE 1 TO 2 CAPSULES DAILY COMPOUNDED PRESCRIPTION CPAP Replacement parts, inclu* CPAP CPAP @ 10 cm of water with hu* BLOOD SUGAR DIAGNOSTIC STRIPS Test blood sugar(s) 3 times d* CITALOPRAM 20 MG TABLET Take 1 tablet by mouth once d* MIRTAZAPINE 30 MG TABLET Take 1 tablet by mouth daily * ASPIRIN 81 MG TABLET Take one(1) tablet daily. Problem List As Of Date 06/08/2018 Noted Resolved OVERWEIGHT [E66.9] INVALID FOR* Diabetes type 2, uncontrolled (HCC) [E11.65] INVALID FOR* More... Hyperlipemia [E78.5] INVALID FOR* More... Gastroesophageal reflux disease without esophag*INVALID FOR* Cervical rib [Q76.5] INVALID FOR*12/09/2010 Personal history of tobacco use, presenting haz*INVALID FOR*03/29/2014 More... Abdominal pain, generalized [R10.84] INVALID FOR*12/09/2010 Abdominal pain, right upper quadrant [R10.11] INVALID FOR*12/09/2010 Acute gastritis without mention of hemorrhage [*INVALID FOR*12/09/2010 More... BENIGN JOYA SKIN TRUNK [D23.5] INVALID FOR* Calcaneal spur [M77.30] INVALID FOR*12/09/2010 Plantar fascial fibromatosis [M72.2] INVALID FOR*12/09/2010 Abnormality of gait [R26.9] INVALID FOR*12/09/2010 Venous thrombosis [I82.90] INVALID FOR*08/19/2012 Lumbosacral spondylosis without myelopathy [M47*INVALID FOR*03/29/2014 Pain in limb [M79.609] INVALID FOR*03/29/2014 More... Pain in joint, shoulder region [M25.519] INVALID FOR*12/09/2010 Anxiety [F41.9] INVALID FOR* More... Kidney stone [N20.0] INVALID FOR*12/09/2010 More... Lumbago [M54.5] INVALID FOR*03/29/2014 SARA on CPAP [G47.33, Z99.89] INVALID FOR* More... Bronchitis [J40] INVALID FOR* Tobacco use disorder [F17.200] INVALID FOR* Parasomnia [G47.50] INVALID FOR* More... SARA (obstructive sleep apnea) AHI 22 [G47.33] INVALID FOR*04/30/2017 Chronic left shoulder pain [M25.512, G89.29] INVALID FOR* Memory disturbance [R41.3] INVALID FOR* Encounter Status:Closed by CASSANDRA BOSTON CMA on 06/09/18 CNCO Observed: 04/23/2018 Status: COMPLETED Source: [place] 12:00 AM [facility] REPOSIT[facility] Letter Text Howard Cano MD [facility] [address] [address] Rosio Polo April 23, 2018 Rosio Polo [address] [facility] [id number] Dear Rosio Polo: Due to a change in your provider's schedule, it has become necessary to reschedule the following appointment: Dr. Cano Date: August 12, 2018 Time: 1:45 pm We apologize for any inconvenience to you, however your provider would still like to see you. Please call us at [phone] to reschedule your appointment. Sincerely, Appointment Staff PROGRESS Observed: 03/02/2018 Status: COMPLETED Source: [place] 2:45 PM [facility] REPOSITORY HNO ID: [id number] Author: Perri (Anirudh) Older Service: (none) Author Type: Nurse Practitioner Type: Progress Notes Filed: 03/02/2018 3:27 PM Note Text: CC: Follow-up HPI Rosio Polo is a 57 year old male who presents today for routine follow-up. Diabetes: Managed by endocrinology, follow-up every 6 months with last visit 02/25. Recent medication changes: Basaglar increased to 40 units, all others remained the same. SARA: Treated with CPAP, managed by Dr. Salinas. Recent PFT's and sleep study. Decreased settings per Dr. Salinas. Tolerating CPAP, wears nightly. GERD. Treated with Prevacid 30 mg for years. Has tried to wean off previously but developed frequent heartburn and reflux. Mr. Polo denies epigastric abdominal pain, weight loss, dysphagia and black/bloody stools. Anxiety/depression: Managed by Dr. Dorado with psychiatry. Follows-up about every 6 to 8 months. No recent medication changes. Taking Remeron and Celexa without as prescribed, no side effects and medications are effective. REVIEW OF SYSTEMS See HPI PAST MEDICAL HISTORY Diagnosis Date - Acute gastritis without mention of hemorrhage - Benign neoplasm of colon - Esophageal reflux - HYPERLIPIDEMIA NEC/NOS 07/08/2005 - Kidney stone 04/23/2010 - Lumbago 03/10/2011 - Lumbosacral spondylosis without myelopathy 03/11/2010 - Obesity, unspecified - Obstructive sleep apnea (adult) (pediatric) 05/22/2011 - SARA on CPAP 05/22/2011 Dr. Salinas. CPAP used. 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 - Type II or unspecified type diabetes mellitus without mention of complication, not stated as uncontrolled - Venous thrombosis 10/08/2009 Postoperative post plantar fasaciaa release PAST SURGICAL HISTORY Procedure Laterality Date - COLONOSCOP W/ OR W/O BRSH SPEC 10/30/08 Colonoscopy - EGD W/O BRSH SPECIMEN W/BX 04/26/2007 Gastritis - EGD W/O OR W/BRUSH/WASH 10/21/2004 EGD - EGD W/O OR W/BRUSH/WASH 04/30/13 EGD - LAPAROSCOPIC CHOLEYCYSTECTOMY 05/04/2013 Cholecystectomy, lap - REPAIR FOREARM TENDON.MUSCLE Right elbow - SCOPE, PLANTAR FASCIOTOMY 09/18/2009 ALLERGIES Influenza Virus Vaccines; Prednisone; Sertraline; Vicodin [Hydrocodone-Acetaminophen] MEDICATIONS glimepiride (AMARYL) 4 mg tablet Take 1 tablet by mouth twice daily with meals. insulin glargine (BASAGLAR KWIKPEN U-100 INSULIN) 100 unit/mL (3 mL) inpn Inject subcutaneously 40 units every bedtime clotrimazole-betamethasone (LOTRISONE) cream Apply 1 application to affected area twice daily as needed (rash). JANUVIA 100 mg tablet TAKE 1 TABLET ONCE DAILY Insulin [place], Disposable, (PEN NEEDLES) 31 gauge x 1/4 ndle 1 Each once daily. pravastatin (PRAVACHOL) 40 mg tablet Take 1 tablet by mouth daily at bedtime. For cholesterol. metFORMIN (GLUCOPHAGE) 500 mg tablet Take 2 tablets by mouth twice daily. lansoprazole (PREVACID) 30 mg capsule TAKE 1 TO 2 CAPSULES DAILY COMPOUNDED PRESCRIPTION CPAP Replacement parts, including mask, straps, tubing, Diagnosis: SARA on CPAP - ICD9: 327.23, ICD10: G47.33 CPAP CPAP @ 10 cm of water with humidification. Mask (per patient preference) optional chin strap (if indicated), filters, tubing / heated tubing, heated humidity and lifetime supplies. Dx. SARA G47.33 327.23 blood sugar diagnostic (BLOOD GLUCOSE TEST) test strip Test blood sugar(s) 3 times daily. Dx: E11.65 Insulin: No. Please dispense Health Pro Easy Touch Test Strips. Code C15 citalopram (CELEXA) 20 mg tablet Take 1 tablet by mouth once daily. mirtazapine (REMERON) 30 mg tablet Take 1 tablet by mouth daily at bedtime. ASPIRIN 81 MG TAB Take one(1) tablet daily. FAMILY HISTORY Problem Relation Age of Onset - parkinson [OTHER] Mother - Heart Father CAD- triple bypass - Diabetes Father - Heart Paternal Grandfather - Diabetes Paternal Grandmother Social History Substance Use Topics - Smoking status: Current Every Day Smoker Packs/day: 1.50 Years: 38.00 Types: Cigarettes - Smokeless tobacco: Never Used - Alcohol use No Comment: rarely- once every 2-3 months PHYSICAL EXAM BP 120/87 (BP Site: Left Arm, BP Position: Sitting, BP Cuff Size: Regular Adult) Pulse 77 Temp 36.5 ?C (97.7 ?F) (Temporal Artery) Resp 14 Wt 108.9 kg (240 lb) SpO2 98% BMI 32.79 kg/m? General Appearance: well appearing, in no acute distress, alert Neck: Thyroid normal size and symmetric without palpable nodules, Neck supple, No adenopathy Lungs: Lungs clear to auscultation. No wheezing, rhonchi, rales Heart: RRR without murmur, gallop, or rubs. No ectopy Ext: no edema in LE bilaterally, good distal pulses DTAP,TDAP,TD(2 - Td) due on 09/21/2016 STATIN MED ADHERENCE due on 03/10/2018 DIABETES MED ADHERENCE due on 03/10/2018 HBA1C due on 05/20/2018 URINE ALBUMIN:CREATININE RATIO due on 09/14/2018 DILATED RETINAL EXAM due on 10/02/2018 DIABETIC FOOT EXAM due on 10/28/2018 ANNUAL PCP TEAM CHRONIC DISEASE VISIT due on 10/28/2018 COLORECTAL CANCER SCREENING,SEE MODIFIER due on 10/30/2018 LDL CHOLESTEROL due on 02/17/2019 PROSTATE CANCER SCREENING DISCUSSION Completed ONE PNEUMOVAX PRIOR TO AGE 65 Completed HEPATITIS C SCREENING Completed ASSESSMENT/PLAN: 1. Uncontrolled type 2 diabetes mellitus without complication, with long-term current use of insulin (HCC) - ICD9: 250.02, V58.67, ICD10: E11.65, Z79.4 (primary diagnosis) - Continue current medications - Continue with endocrinology follow-ups and recommendations 2. Gastroesophageal reflux disease without esophagitis - ICD9: 530.81, ICD10: K21.9 Stable - Continue treatment with Prevacid 30 mg QD Follow-up with PCP in 6 months or sooner as needed 3. Mixed hyperlipidemia - ICD9: 272.2, ICD10: E78.2 - good control - Continue current medication. - Encouraged following a low fat, low cholesterol diet. 4. Depression with anxiety - ICD9: 300.4, ICD10: F41.8 Stable. Managed by psychiatry Follow-up and medications as prescribed 5. SARA on CPAP - ICD9: 327.23, V46.8, ICD10: G47.33, Z99.89 Stable Follow-up with Dr. Salinas as instructed Prescription instructions reviewed with patient as applicable. Potential red flag symptoms discussed with the patient. Reviewed appropriate action plan to take if red flag symptoms occur. Patient agreeable to treatment plan. Perri Plummer APRN.CNP CNOV Observed: 03/02/2018 Status: COMPLETED Source: [place] 2:40 PM [facility] REPOSITORY Office Visit (INTMWS) ROSIO POLO ([id number]) 1960 M NFR Date Time Provider Department 03/02/18 2:40 PM PERRI PLUMMER (ANIRUDH) INTMWS During your visit today, we recorded the following information about you: Temperature Pulse Respiration Blood pressure 97.7 degrees 77/minute 14/minute 120/87 Weight 108.9 kg Perri Plummer APRN.CNP 03/02/2018 3:27 PM Signed CC: Follow-up HPI Rosio Polo is a 57 year old male who presents today for routine follow-up. Diabetes: Managed by endocrinology, follow-up every 6 months with last visit 02/25. Recent medication changes: Basaglar increased to 40 units, all others remained the same. SARA: Treated with CPAP, managed by Dr. Salinas. Recent PFT's and sleep study. Decreased settings per Dr. Salinas. Tolerating CPAP, wears nightly. GERD. Treated with Prevacid 30 mg for years. Has tried to wean off previously but developed frequent heartburn and reflux. Mr. Polo denies epigastric abdominal pain, weight loss, dysphagia and black/bloody stools. Anxiety/depression: Managed by Dr. Dorado with psychiatry. Follows-up about every 6 to 8 months. No recent medication changes. Taking Remeron and Celexa without as prescribed, no side effects and medications are effective. REVIEW OF SYSTEMS See HPI PAST MEDICAL HISTORY Diagnosis Date - Acute gastritis without mention of hemorrhage - Benign neoplasm of colon - Esophageal reflux - HYPERLIPIDEMIA NEC/NOS 07/08/2005 - Kidney stone 04/23/2010 - Lumbago 03/10/2011 - Lumbosacral spondylosis without myelopathy 03/11/2010 - Obesity, unspecified - Obstructive sleep apnea (adult) (pediatric) 05/22/2011 - SARA on CPAP 05/22/2011 Dr. Salinas. CPAP used. 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 - Type II or unspecified type diabetes mellitus without mention of complication, not stated as uncontrolled - Venous thrombosis 10/08/2009 Postoperative post plantar fasaciaa release PAST SURGICAL HISTORY Procedure Laterality Date - COLONOSCOP W/ OR W/O BRSH SPEC 10/30/08 Colonoscopy - EGD W/O BRSH SPECIMEN W/BX 04/26/2007 Gastritis - EGD W/O OR W/BRUSH/WASH 10/21/2004 EGD - EGD W/O OR W/BRUSH/WASH 04/30/13 EGD - LAPAROSCOPIC CHOLEYCYSTECTOMY 05/04/2013 Cholecystectomy, lap - REPAIR FOREARM TENDON.MUSCLE Right elbow - SCOPE, PLANTAR FASCIOTOMY 09/18/2009 ALLERGIES Influenza Virus Vaccines; Prednisone; Sertraline; Vicodin [Hydrocodone-Acetaminophen] MEDICATIONS glimepiride (AMARYL) 4 mg tablet Take 1 tablet by mouth twice daily with meals. insulin glargine (BASAGLAR KWIKPEN U-100 INSULIN) 100 unit/mL (3 mL) inpn Inject subcutaneously 40 units every bedtime clotrimazole-betamethasone (LOTRISONE) cream Apply 1 application to affected area twice daily as needed (rash). JANUVIA 100 mg tablet TAKE 1 TABLET ONCE DAILY Insulin [place], Disposable, (PEN NEEDLES) 31 gauge x 1/4 ndle 1 Each once daily. pravastatin (PRAVACHOL) 40 mg tablet Take 1 tablet by mouth daily at bedtime. For cholesterol. metFORMIN (GLUCOPHAGE) 500 mg tablet Take 2 tablets by mouth twice daily. lansoprazole (PREVACID) 30 mg capsule TAKE 1 TO 2 CAPSULES DAILY COMPOUNDED PRESCRIPTION CPAP Replacement parts, including mask, straps, tubing, Diagnosis: SARA on CPAP - ICD9: 327.23, ICD10: G47.33 CPAP CPAP @ 10 cm of water with humidification. Mask (per patient preference) optional chin strap (if indicated), filters, tubing / heated tubing, heated humidity and lifetime supplies. Dx. SARA G47.33 327.23 blood sugar diagnostic (BLOOD GLUCOSE TEST) test strip Test blood sugar(s) 3 times daily. Dx: E11.65 Insulin: No. Please dispense Health Pro Easy Touch Test Strips. Code C15 citalopram (CELEXA) 20 mg tablet Take 1 tablet by mouth once daily. mirtazapine (REMERON) 30 mg tablet Take 1 tablet by mouth daily at bedtime. ASPIRIN 81 MG TAB Take one(1) tablet daily. FAMILY HISTORY Problem Relation Age of Onset - parkinson [OTHER] Mother - Heart Father CAD- triple bypass - Diabetes Father - Heart Paternal Grandfather - Diabetes Paternal Grandmother Social History Substance Use Topics - Smoking status: Current Every Day Smoker Packs/day: 1.50 Years: 38.00 Types: Cigarettes - Smokeless tobacco: Never Used - Alcohol use No Comment: rarely- once every 2-3 months PHYSICAL EXAM BP 120/87 (BP Site: Left Arm, BP Position: Sitting, BP Cuff Size: Regular Adult) Pulse 77 Temp 36.5 ?C (97.7 ?F) (Temporal Artery) Resp 14 Wt 108.9 kg (240 lb) SpO2 98% BMI 32.79 kg/m? General Appearance: well appearing, in no acute distress, alert Neck: Thyroid normal size and symmetric without palpable nodules, Neck supple, No adenopathy Lungs: Lungs clear to auscultation. No wheezing, rhonchi, rales Heart: RRR without murmur, gallop, or rubs. No ectopy Ext: no edema in LE bilaterally, good distal pulses DTAP,TDAP,TD(2 - Td) due on 09/21/2016 STATIN MED ADHERENCE due on 03/10/2018 DIABETES MED ADHERENCE due on 03/10/2018 HBA1C due on 05/20/2018 URINE ALBUMIN:CREATININE RATIO due on 09/14/2018 DILATED RETINAL EXAM due on 10/02/2018 DIABETIC FOOT EXAM due on 10/28/2018 ANNUAL PCP TEAM CHRONIC DISEASE VISIT due on 10/28/2018 COLORECTAL CANCER SCREENING,SEE MODIFIER due on 10/30/2018 LDL CHOLESTEROL due on 02/17/2019 PROSTATE CANCER SCREENING DISCUSSION Completed ONE PNEUMOVAX PRIOR TO AGE 63 Completed HEPATITIS C SCREENING Completed ASSESSMENT/PLAN: 1. Uncontrolled type 2 diabetes mellitus without complication, with long-term current use of insulin (HCC) - ICD9: 250.02, V58.67, ICD10: E11.65, Z79.4 (primary diagnosis) - Continue current medications - Continue with endocrinology follow-ups and recommendations 2. Gastroesophageal reflux disease without esophagitis - ICD9: 530.81, ICD10: K21.9 Stable - Continue treatment with Prevacid 30 mg QD Follow-up with PCP in 6 months or sooner as needed 3. Mixed hyperlipidemia - ICD9: 272.2, ICD10: E78.2 - good control - Continue current medication. - Encouraged following a low fat, low cholesterol diet. 4. Depression with anxiety - ICD9: 300.4, ICD10: F41.8 Stable. Managed by psychiatry Follow-up and medications as prescribed 5. SARA on CPAP - ICD9: 327.23, V46.8, ICD10: G47.33, Z99.89 Stable Follow-up with Dr. Salinas as instructed Prescription instructions reviewed with patient as applicable. Potential red flag symptoms discussed with the patient. Reviewed appropriate action plan to take if red flag symptoms occur. Patient agreeable to treatment plan. Perri Plummer APRN.BAG LOADER Referring Provider: TADEO GAMBOA [[id number]] Allergies As of Date: 03/02/2018 Noted Allergy Reaction INFLUENZA VIRUS VACCINES 11/13/2014 14 - Other: See Comments Comments: myalgias PREDNISONE 01/12/2013 2 - Rash SERTRALINE 07/11/2013 8 - GI Upset VICODIN (HYDROCODONE-ACETAMINOPHE*05/11/2013 9 - Itching Date Reviewed: 03/02/2018 Reviewed by: Breana Hartmann Ict Help Desk Technician - Fully Assessed Primary Visit Diagnosis:Uncontrolled type 2 diabetes mellitus without complication, with long-term current use of insulin (HCC) [E11.65, Z79.4] Other Visit Diagnoses:Gastroesophageal reflux disease without esophagitis [K21.9] Mixed hyperlipidemia [E78.2] Depression with anxiety [F41.8] SARA on CPAP [G47.33, Z99.89] Prescriptions as of 03/02/2018 Sig: GLIMEPIRIDE 4 MG TABLET Take 1 tablet by mouth twice * INSULIN GLARGINE (U-100) 100 * Inject subcutaneously 40 unit* CLOTRIMAZOLE-BETAMETHASONE 1 * Apply 1 application to affect* JANUVIA 100 MG TABLET TAKE 1 TABLET ONCE DAILY PEN NEEDLE, DIABETIC 31 GAUGE* 1 Each once daily. PRAVASTATIN 40 MG TABLET Take 1 tablet by mouth daily * METFORMIN 500 MG TABLET Take 2 tablets by mouth twice* LANSOPRAZOLE 30 MG CAPSULE,DE* TAKE 1 TO 2 CAPSULES DAILY COMPOUNDED PRESCRIPTION CPAP Replacement parts, inclu* CPAP CPAP @ 10 cm of water with hu* BLOOD SUGAR DIAGNOSTIC STRIPS Test blood sugar(s) 3 times d* CITALOPRAM 20 MG TABLET Take 1 tablet by mouth once d* MIRTAZAPINE 30 MG TABLET Take 1 tablet by mouth daily * ASPIRIN 81 MG TABLET Take one(1) tablet daily. Problem List As Of Date 03/02/2018 Noted Resolved OVERWEIGHT [E66.9] INVALID FOR* Diabetes type 2, uncontrolled (HCC) [E11.65] INVALID FOR* More... Hyperlipemia [E78.5] INVALID FOR* More... Gastroesophageal reflux disease without esophag*INVALID FOR* Cervical rib [Q76.5] INVALID FOR*12/09/2010 Personal history of tobacco use, presenting haz*INVALID FOR*03/29/2014 More... Abdominal pain, generalized [R10.84] INVALID FOR*12/09/2010 Abdominal pain, right upper quadrant [R10.11] INVALID FOR*12/09/2010 Acute gastritis without mention of hemorrhage [*INVALID FOR*12/09/2010 More... BENIGN JOYA SKIN TRUNK [D23.5] INVALID FOR* Calcaneal spur [M77.30] INVALID FOR*12/09/2010 Plantar fascial fibromatosis [M72.2] INVALID FOR*12/09/2010 Abnormality of gait [R26.9] INVALID FOR*12/09/2010 Venous thrombosis [I82.90] INVALID FOR*08/19/2012 Lumbosacral spondylosis without myelopathy [M47*INVALID FOR*03/29/2014 Pain in limb [M79.609] INVALID FOR*03/29/2014 More... Pain in joint, shoulder region [M25.519] INVALID FOR*12/09/2010 Anxiety [F41.9] INVALID FOR* More... Kidney stone [N20.0] INVALID FOR*12/09/2010 More... Lumbago [M54.5] INVALID FOR*03/29/2014 SARA on CPAP [G47.33, Z99.89] INVALID FOR* More... Bronchitis [J40] INVALID FOR* Tobacco use disorder [F17.200] INVALID FOR* Parasomnia [G47.50] INVALID FOR* More... SARA (obstructive sleep apnea) AHI 22 [G47.33] INVALID FOR*04/30/2017 Chronic left shoulder pain [M25.512, G89.29] INVALID FOR* Memory disturbance [R41.3] INVALID FOR* Encounter Status:Closed by PERRI PLUMMER CNP on 03/02/18 CNOV Observed: 02/22/2018 Status: COMPLETED Source: [place] 10:15 AM [facility] REPOSITORY Office Visit (LEYLA) ROSIO POLO ([id number]) 1960 M NFR Date Time Provider Department 02/22/18 10:15 AM LUANA GARCIA (ANIRUDH) LEYLA During your visit today, we recorded the following information about you: Pulse Blood pressure Weight Height 76/minute 115/73 108.4 kg 1.822 m Luana Garcia APRN.CNP 02/28/2018 5:09 PM Signed DIABETES VISIT HISTORIES FAMILY HISTORY Problem Relation Age of Onset - parkinson [OTHER] Mother - Heart Father CAD- triple bypass - Diabetes Father - Heart Paternal Grandfather - Diabetes Paternal Grandmother PAST MEDICAL HISTORY Diagnosis Date - Acute gastritis without mention of hemorrhage - Benign neoplasm of colon - Esophageal reflux - HYPERLIPIDEMIA NEC/NOS 07/08/2005 - Kidney stone 04/23/2010 - Lumbago 03/10/2011 - Lumbosacral spondylosis without myelopathy 03/11/2010 - Obesity, unspecified - Obstructive sleep apnea (adult) (pediatric) 05/22/2011 - SARA on CPAP 05/22/2011 Dr. Salinas. CPAP used. 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 - Type II or unspecified type diabetes mellitus without mention of complication, not stated as uncontrolled - Venous thrombosis 10/08/2009 Postoperative post plantar fasaciaa release PAST SURGICAL HISTORY Procedure Laterality Date - COLONOSCOP W/ OR W/O BRSH SPEC 10/30/08 Colonoscopy - EGD W/O BRSH SPECIMEN W/BX 04/26/2007 Gastritis - EGD W/O OR W/BRUSH/WASH 10/21/2004 EGD - EGD W/O OR W/BRUSH/WASH 04/30/13 EGD - LAPAROSCOPIC CHOLEYCYSTECTOMY 05/04/2013 Cholecystectomy, lap - REPAIR FOREARM TENDON.MUSCLE Right elbow - SCOPE, PLANTAR FASCIOTOMY 09/18/2009 Social History Marital status: Spouse name: Years of education: Number of children: 2 Occupational History 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 [employer] Social History Main Topics Smoking status: Current Every Day Smoker Packs/day: 1.50 Years: 38.00 Types: Cigarettes Smokeless tobacco: Never Used Alcohol use: No Comment: rarely- once every 2-3 months Drug use: No Immunization History Administered Date(s) Administered Hepatitis A vaccine 09/21/2006 Influenza Seasonal Inj Age 3+ 08/22/2014 Influenza Vaccine, Split-Non Spec 07/08/2006 06/14/2007 07/10/2008 06/10/2010 06/13/2011 06/18/2013 Pneumovax 06/10/2010 Tdap (Age 7+) 09/21/2006 Typhoid Unspec 09/21/2006 Yellow Fever, Live 09/21/2006 ALLERGIES Allergen Reactions - Influenza Virus Vac* Other: See Comments myalgias - Prednisone Rash - Sertraline GI Upset - Vicodin [Hydrocodon* Itching Current Outpatient Prescriptions on File Prior to Visit: clotrimazole-betamethasone (LOTRISONE) cream Apply 1 application to affected area twice daily as needed (rash). insulin glargine (BASAGLAR KWIKPEN U-100 INSULIN) 100 unit/mL (3 mL) inpn Inject 30 Units subcutaneously daily at bedtime. As directed. JANUVIA 100 mg tablet TAKE 1 TABLET ONCE DAILY Insulin [place], Disposable, (PEN NEEDLES) 31 gauge x 1/4 ndle 1 Each once daily. pravastatin (PRAVACHOL) 40 mg tablet Take 1 tablet by mouth daily at bedtime. For cholesterol. metFORMIN (GLUCOPHAGE) 500 mg tablet Take 2 tablets by mouth twice daily. glimepiride (AMARYL) 2 mg tablet TAKE 2 TABLETS TWICE A DAY WITH MEALS (BREAKFAST AND DINNER) lansoprazole (PREVACID) 30 mg capsule TAKE 1 TO 2 CAPSULES DAILY COMPOUNDED PRESCRIPTION CPAP Replacement parts, including mask, straps, tubing, Diagnosis: SARA on CPAP - ICD9: 327.23, ICD10: G47.33 CPAP CPAP @ 10 cm of water with humidification. Mask (per patient preference) optional chin strap (if indicated), filters, tubing / heated tubing, heated humidity and lifetime supplies. Dx. SARA G47.33 327.23 blood sugar diagnostic (BLOOD GLUCOSE TEST) test strip Test blood sugar(s) 3 times daily. Dx: E11.65 Insulin: No. Please dispense Health Pro Easy Touch Test Strips. Code C15 citalopram (CELEXA) 20 mg tablet Take 1 tablet by mouth once daily. mirtazapine (REMERON) 30 mg tablet Take 1 tablet by mouth daily at bedtime. ASPIRIN 81 MG TAB Take one(1) tablet daily. No current facility-administered medications on file prior to visit. LABS TSH (uU/mL) Date Value 10/09/2017 1.020 12/18/2015 1.650 05/23/2013 2.060 ALT (U/L) Date Value 03/27/2017 37 02/17/2017 36 06/11/2015 25 Potassium (mmol/L) Date Value 09/14/2017 4.4 03/27/2017 4.8 Creatinine (mg/dL) Date Value 09/14/2017 0.88 03/27/2017 0.87 02/17/2017 0.76 Hemoglobin A1C (%) Date Value 02/17/2018 9.1 09/14/2017 9.4 03/27/2017 8.6 Hemoglobin A1C (POCT) (%) Date Value 09/15/2017 9.8 Albumin, Urine Random (mg/L) Date Value 09/14/2017 <12.0 06/25/2016 <12.0 06/11/2015 3.0 Creatinine, Ur Random (UCRR) (mg/dL) Date Value 09/14/2017 175.6 06/25/2016 114.8 Albumin/Creat Ratio (mg/g) Date Value 09/14/2017 Not calculated 06/25/2016 <3 Glucose (mg/dL) Date Value 09/14/2017 350 03/27/2017 294 02/17/2017 139 Calcium (mg/dL) Date Value 09/14/2017 9.3 03/27/2017 10.2 Vitamin D 25 Hydroxy (ng/mL) Date Value 10/09/2017 20.8 Lipids: Cholesterol, Total (mg/dL) Date Value 02/17/2018 141 03/27/2017 162 06/25/2016 147 HDL Cholesterol (mg/dL) Date Value 02/17/2018 25 03/27/2017 22 06/25/2016 25 LDL Cholesterol (mg/dL) Date Value 02/17/2018 73 03/27/2017 67 06/25/2016 85 Triglyceride (mg/dL) Date Value 02/17/2018 215 03/27/2017 366 06/25/2016 184 I reviewed the Wireline Field Operator's notes with this visit for vital signs, current allergies, medications, electronic medical record, lab(s), outside lab(s), and or back office lab(s) results, history of vaccinations, and chief complaints. I edited the information obtained, as required. HISTORY OF PRESENT ILLNESS Last endo office visit: 09/15/[address] Soledad Washingtonry is a 57 year old male who comes for 5 month follow up evaluation of uncontrolled Type 2 DM. Patient has had diabetes since age 48. Also known history of SARA, hyperlipidemia, hypertension, anxiety/depression Family history re DM : Father, grandparent Patient's last HgA1C was Hemoglobin A1C (%) Date Value 02/17/2018 9.1 -continues sleep walking and eating food and sweets -saw neurology --he is supposed to start melatonin + Vit D Diet: Follows a nonspecific diet Breakfast: None -only on weekends --sometimes drinks matthew milk Lunch: egg salad or chicken salad Dinner: Meat + pota + veg or burger without bun + mac salad Bedtime snack: Matthew covered granola bar Medications: The patient is currently taking the following medications to manage his diabetes: -Basaglar 30 units daily -Januvia 100 mg daily -metformin 500 mg two tablets twice daily -glimepiride 2 mg two tablets twice daily Monitoring: He reports checking his glucose with DRB Systemsek compact meter BG Values: review of meter shows blood glucose range of 113-339 Other issues: Last Ophthalmology exam was within the past 12 months Hypoglycemia awareness:yes. 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 REVIEW OF SYSTEMS: GENERAL: No weight loss, malaise or fevers WEIGHT:is stable EYES:Denies any recent visual changes CARDIAC: no chest pain, dyspnea, palpitations, edema, orthopnea, cough LUNG: smokes 1-1.5 ppd GI: no nausea, fullness, vomiting, diarrhea, constipation, GI bleeding or heartburn :no dysuria, frequency, hesitancy, hematuria, polyuria, nocturia, UTIs, yeast infections, or kidney stones SKIN: Pt denies ulceration,cellulitis, abscess, acne, hirsutism, rashes, or lesions FEET:Pt denies callus formation, foot deformity including partial or complete amputation of the foot, ulceration, or peripheral neuropathy MUSCULO-SKELETAL: Pt denies joint pain, stiffness, swelling, cramping or weakness; No back pain, arthritis, full ROM NERVOUS SYSTEM: no numbness, paresthesias, weakness, cramping, burning or dizziness DEPRESSION: Pt denies The rest of the ROS is otherwise negative PHYSICAL EXAM: BP 115/73 Pulse 76 Ht 5' 11.732 (1.82m) Wt 239 lb (108.4kg) SpO2 96% BMI 32.66 kg/(m2). Wt: 109.3 kg (241 lb) BMI: 33.61 kg/(m2) Last 2 Encounter Wt Readings: Date: Wt: 01/05/2018 109.3 kg (241 lb) 11/20/2017 108.9 kg (240 lb) Appearance:Well appearing, alert, in no acute distress, well- hydrated, well nourished. and Obese Eyes:PERRLA, conjunctiva and sclera normal Neck:Supple, no adenopathy; thyroid symmetric, normal size, no bruits Heart: Regular rate and rhythm with no JVD appreciated Lungs:clear to auscultation Extremities: No skin discoloration and No edema Neuro:Awake, alert and oriented x 3, No involuntary motions. and Cranial nerves II-XII grossly intact Feet:Shoes and socks removed, No deformities, ulcers, calluses and Normal distal pulses Skin:Color, texture, turgor normal. No rashes or lesions IMPRESSION AND PLAN: (E11.65, Z79.4) Uncontrolled type 2 diabetes mellitus without complication, with long-term current use of insulin ([facility]) (primary encounter diagnosis) Comment: Poorly controlled diabetes mellitus type 2 with A1c at 9.1% Plan: -Medications: -Increase Basaglar to 40 units daily at bedtime -Continue Januvia 100 mg twice daily -Continue metformin 500 mg two tablets twice daily with meals -Change glimepiride 2 mg two tablets twice daily to 4 mg tablet one tablet twice daily -may consider start of Farxiga at next office visit -Refills: Yes, patient requests e-script prescription -Recommended diet: Low carbohydrate and Low saturated fat, low simple sugar, high fiber diet CONSULT TO NUTRITION THERAPY -Recommended exercise: 150 minutes of exercise per week -Monitor blood glucose 3 times per day. The patient was advised to contact the office if the blood sugar readings are consistently high or if having frequent hypoglycemia. -Driving and Diabetes has been reviewed with the patient Patient to continue to follow up with his Primary Care Provider and with other consultants regarding his other medical problems. Entire visit was 30 min with >50% of time spent as face to face counseling regarding blood sugar monitoring, review of risks, benefits, and side effects of medication(s), insulin administration and adjustment, symptoms AND treatment of hypoglycemia, importance of diet adherence and importance of exercise program and Plan of Care. Next visit in [address] Cano. Luana Garcia MSN, BAG LOADER, CDE Department of Endocrinology, Diabetes and Metabolism Luana Garcia, DIGITAL PUBLISHING SPECIALIST.BAG LOADER 02/22/2018 11:06 AM Signed Increase Basaglar to 40 units daily at bedtime Continue Januvia 100 mg twice daily Continue metformin 500 mg two tablets twice daily with meals Change glimepiride 2 mg two tablets twice daily to 4 mg tablet one tablet twice daily Referring Provider: TADEO GAMBOA [[id number]] Allergies As of Date: 02/22/2018 Noted Allergy Reaction INFLUENZA VIRUS VACCINES 11/13/2014 14 - Other: See Comments Comments: myalgias PREDNISONE 01/12/2013 2 - Rash SERTRALINE 07/11/2013 8 - GI Upset VICODIN (HYDROCODONE-ACETAMINOPHE*05/11/2013 9 - Itching Date Reviewed: 02/22/2018 Reviewed by: Luana ([facility]) Jose - Fully Assessed Reason for Visit: Diabetes [34] Primary Visit Diagnosis:Uncontrolled type 2 diabetes mellitus without complication, with long-term current use of insulin ([facility]) [E11.65, Z79.4] Order(s):glimepiride (AMARYL) 4 mg tabletTake 1 tablet by mouth twice daily with meals.Disp: 180 tabletRfl: 1 insulin glargine (BASAGLAR KWIKPEN U-100 INSULIN) 100 unit/mL (3 mL) inpnInject subcutaneously 40 units every bedtimeDisp: 15 PenRfl: 1 CONSULT TO NUTRITION THERAPY [5719] Order #: [id number]: 1 Prescriptions as of 02/22/2018 Sig: INSULIN GLARGINE (U-100) 100 * Inject subcutaneously 40 unit* CLOTRIMAZOLE-BETAMETHASONE 1 * Apply 1 application to affect* JANUVIA 100 MG TABLET TAKE 1 TABLET ONCE DAILY PEN NEEDLE, DIABETIC 31 GAUGE* 1 Each once daily. PRAVASTATIN 40 MG TABLET Take 1 tablet by mouth daily * METFORMIN 500 MG TABLET Take 2 tablets by mouth twice* LANSOPRAZOLE 30 MG CAPSULE,DE* TAKE 1 TO 2 CAPSULES DAILY COMPOUNDED PRESCRIPTION CPAP Replacement parts, inclu* CPAP CPAP @ 10 cm of water with hu* BLOOD SUGAR DIAGNOSTIC STRIPS Test blood sugar(s) 3 times d* CITALOPRAM 20 MG TABLET Take 1 tablet by mouth once d* MIRTAZAPINE 30 MG TABLET Take 1 tablet by mouth daily * ASPIRIN 81 MG TABLET Take one(1) tablet daily. GLIMEPIRIDE 4 MG TABLET Take 1 tablet by mouth twice * Problem List As Of Date 02/22/2018 Noted Resolved OVERWEIGHT [E66.9] INVALID FOR* Diabetes type 2, uncontrolled (HCC) [E11.65] INVALID FOR* More... Hyperlipemia [E78.5] INVALID FOR* More... ESOPHAGEAL REFLUX [K21.9] INVALID FOR* Cervical rib [Q76.5] INVALID FOR*12/09/2010 Personal history of tobacco use, presenting haz*INVALID FOR*03/29/2014 More... Abdominal pain, generalized [R10.84] INVALID FOR*12/09/2010 Abdominal pain, right upper quadrant [R10.11] INVALID FOR*12/09/2010 Acute gastritis without mention of hemorrhage [*INVALID FOR*12/09/2010 More... BENIGN JOYA SKIN TRUNK [D23.5] INVALID FOR* Calcaneal spur [M77.30] INVALID FOR*12/09/2010 Plantar fascial fibromatosis [M72.2] INVALID FOR*12/09/2010 Abnormality of gait [R26.9] INVALID FOR*12/09/2010 Venous thrombosis [I82.90] INVALID FOR*08/19/2012 Lumbosacral spondylosis without myelopathy [M47*INVALID FOR*03/29/2014 Pain in limb [M79.609] INVALID FOR*03/29/2014 More... Pain in joint, shoulder region [M25.519] INVALID FOR*12/09/2010 Anxiety [F41.9] INVALID FOR* More... Kidney stone [N20.0] INVALID FOR*12/09/2010 More... Lumbago [M54.5] INVALID FOR*03/29/2014 SARA on CPAP [G47.33, Z99.89] INVALID FOR* More... Bronchitis [J40] INVALID FOR* Tobacco use disorder [F17.200] INVALID FOR* Parasomnia [G47.50] INVALID FOR* More... SARA (obstructive sleep apnea) AHI 22 [G47.33] INVALID FOR*04/30/2017 Chronic left shoulder pain [M25.512, G89.29] INVALID FOR* Memory disturbance [R41.3] INVALID FOR* Other instructions from your clinician: Increase Basaglar to 40 units daily at bedtime Continue Januvia 100 mg twice daily Continue metformin 500 mg two tablets twice daily with meals Change glimepiride 2 mg two tablets twice daily to 4 mg tablet one tablet twice daily Prescriptions ordered this encounter Disp Refills Start End GLIMEPIRIDE 4 MG TABLET 180 * 1 02/22/2018 Route: ORAL Sig: Take 1 tablet by mouth twice daily with meals. INSULIN GLARGINE (U-100) 100 UNIT/ML* 15 P* 1 02/22/2018 Sig: Inject subcutaneously 40 units every bedtime Medications Discontinued During This Encounter glimepiride (AMARYL) 2 mg tablet 360 * 3 10/28/2017 02/22/2018 Class: Care[employer] Sig: TAKE 2 TABLETS TWICE A DAY WITH MEALS (BREAKFAST AND DINNER) Disc: Changing Therapy/Dosage Form insulin glargine (BASAGLAR KWIKPEN U* 10 P* 5 01/21/2018 02/22/2018 Route: SUBCUTANEOUS Sig: Inject 30 Units subcutaneously daily at bedtime. As directed. Disc: Reason for discontinue is not on file. Disposition: Return in about 6 months (around 08/25/2018). Follow-up and Disposition History Recorded Encounter Status:Closed by LUANA GARCIA CNP on 02/28/18 PROGRESS Observed: 02/22/2018 Status: COMPLETED Source: [place] 7:55 AM [facility] REPOSITORY [facility] ID: [id number] Author: Luana (Anirudh) Jose Service: (none) Author Type: Nurse Practitioner Type: Progress Notes Filed: 02/28/2018 5:09 PM Note Text: DIABETES VISIT HISTORIES FAMILY HISTORY Problem Relation Age of Onset - parkinson [OTHER] Mother - Heart Father CAD- triple bypass - Diabetes Father - Heart Paternal Grandfather - Diabetes Paternal Grandmother PAST MEDICAL HISTORY Diagnosis Date - Acute gastritis without mention of hemorrhage - Benign neoplasm of colon - Esophageal reflux - HYPERLIPIDEMIA NEC/NOS 07/08/2005 - Kidney stone 04/23/2010 - Lumbago 03/10/2011 - Lumbosacral spondylosis without myelopathy 03/11/2010 - Obesity, unspecified - Obstructive sleep apnea (adult) (pediatric) 05/22/2011 - SARA on CPAP 05/22/2011 Dr. Salinas. CPAP used. 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 - Type II or unspecified type diabetes mellitus without mention of complication, not stated as uncontrolled - Venous thrombosis 10/08/2009 Postoperative post plantar fasaciaa release PAST SURGICAL HISTORY Procedure Laterality Date - COLONOSCOP W/ OR W/O BRSH SPEC 10/30/08 Colonoscopy - EGD W/O BRSH SPECIMEN W/BX 04/26/2007 Gastritis - EGD W/O OR W/BRUSH/WASH 10/21/2004 EGD - EGD W/O OR W/BRUSH/WASH 04/30/13 EGD - LAPAROSCOPIC CHOLEYCYSTECTOMY 05/04/2013 Cholecystectomy, lap - REPAIR FOREARM TENDON.MUSCLE Right elbow - SCOPE, PLANTAR FASCIOTOMY 09/18/2009 Social History Marital status: Spouse name: Years of education: Number of children: 2 Occupational History Occupation Employer Comment [email or web address] Social History Main Topics Smoking status: Current Every Day Smoker Packs/day: 1.50 Years: 38.00 Types: Cigarettes Smokeless tobacco: Never Used Alcohol use: No Comment: rarely- once every 2-3 months Drug use: No Immunization History Administered Date(s) Administered Hepatitis A vaccine 09/21/2006 Influenza Seasonal Inj Age 3+ 08/22/2014 Influenza Vaccine, Split-Non Spec 07/08/2006 06/14/2007 07/10/2008 06/10/2010 06/13/2011 06/18/2013 Pneumovax 06/10/2010 Tdap (Age 7+) 09/21/2006 Typhoid Unspec 09/21/2006 Yellow Fever, Live 09/21/2006 ALLERGIES Allergen Reactions - Influenza Virus Vac* Other: See Comments myalgias - Prednisone Rash - Sertraline GI Upset - Vicodin [Hydrocodon* Itching Current Outpatient Prescriptions on File Prior to Visit: clotrimazole-betamethasone (LOTRISONE) cream Apply 1 application to affected area twice daily as needed (rash). insulin glargine (BASAGLAR KWIKPEN U-100 INSULIN) 100 unit/mL (3 mL) inpn Inject 30 Units subcutaneously daily at bedtime. As directed. JANUVIA 100 mg tablet TAKE 1 TABLET ONCE DAILY Insulin [place], Disposable, (PEN NEEDLES) 31 gauge x 1/4 ndle 1 Each once daily. pravastatin (PRAVACHOL) 40 mg tablet Take 1 tablet by mouth daily at bedtime. For cholesterol. metFORMIN (GLUCOPHAGE) 500 mg tablet Take 2 tablets by mouth twice daily. glimepiride (AMARYL) 2 mg tablet TAKE 2 TABLETS TWICE A DAY WITH MEALS (BREAKFAST AND DINNER) lansoprazole (PREVACID) 30 mg capsule TAKE 1 TO 2 CAPSULES DAILY COMPOUNDED PRESCRIPTION CPAP Replacement parts, including mask, straps, tubing, Diagnosis: SARA on CPAP - ICD9: 327.23, ICD10: G47.33 CPAP CPAP @ 10 cm of water with humidification. Mask (per patient preference) optional chin strap (if indicated), filters, tubing / heated tubing, heated humidity and lifetime supplies. Dx. SARA G47.33 327.23 blood sugar diagnostic (BLOOD GLUCOSE TEST) test strip Test blood sugar(s) 3 times daily. Dx: E11.65 Insulin: No. Please dispense Health Pro Easy Touch Test Strips. Code C15 citalopram (CELEXA) 20 mg tablet Take 1 tablet by mouth once daily. mirtazapine (REMERON) 30 mg tablet Take 1 tablet by mouth daily at bedtime. ASPIRIN 81 MG TAB Take one(1) tablet daily. No current facility-administered medications on file prior to visit. LABS TSH (uU/mL) Date Value 10/09/2017 1.020 12/18/2015 1.650 05/23/2013 2.060 ALT (U/L) Date Value 03/27/2017 37 02/17/2017 36 06/11/2015 25 Potassium (mmol/L) Date Value 09/14/2017 4.4 03/27/2017 4.8 Creatinine (mg/dL) Date Value 09/14/2017 0.88 03/27/2017 0.87 02/17/2017 0.76 Hemoglobin A1C (%) Date Value 02/17/2018 9.1 09/14/2017 9.4 03/27/2017 8.6 Hemoglobin A1C (POCT) (%) Date Value 09/15/2017 9.8 Albumin, Urine Random (mg/L) Date Value 09/14/2017 <12.0 06/25/2016 <12.0 06/11/2015 3.0 Creatinine, Ur Random (UCRR) (mg/dL) Date Value 09/14/2017 175.6 06/25/2016 114.8 Albumin/Creat Ratio (mg/g) Date Value 09/14/2017 Not calculated 06/25/2016 <3 Glucose (mg/dL) Date Value 09/14/2017 350 03/27/2017 294 02/17/2017 139 Calcium (mg/dL) Date Value 09/14/2017 9.3 03/27/2017 10.2 Vitamin D 25 Hydroxy (ng/mL) Date Value 10/09/2017 20.8 Lipids: Cholesterol, Total (mg/dL) Date Value 02/17/2018 141 03/27/2017 162 06/25/2016 147 HDL Cholesterol (mg/dL) Date Value 02/17/2018 25 03/27/2017 22 06/25/2016 25 LDL Cholesterol (mg/dL) Date Value 02/17/2018 73 03/27/2017 67 06/25/2016 85 Triglyceride (mg/dL) Date Value 02/17/2018 215 03/27/2017 366 06/25/2016 184 I reviewed the Wireline Field Operator's notes with this visit for vital signs, current allergies, medications, electronic medical record, lab(s), outside lab(s), and or back office lab(s) results, history of vaccinations, and chief complaints. I edited the information obtained, as required. HISTORY OF PRESENT ILLNESS Last endo office visit: 09/15/[address] Soledad Polo is a 57 year old male who comes for 5 month follow up evaluation of uncontrolled Type 2 DM. Patient has had diabetes since age 48. Also known history of SARA, hyperlipidemia, hypertension, anxiety/depression Family history re DM : Father, grandparent Patient's last HgA1C was Hemoglobin A1C (%) Date Value 02/17/2018 9.1 -continues sleep walking and eating food and sweets -saw neurology --he is supposed to start melatonin + Vit D Diet: Follows a nonspecific diet Breakfast: None -only on weekends --sometimes drinks matthew milk Lunch: egg salad or chicken salad Dinner: Meat + pota + veg or burger without bun + mac salad Bedtime snack: Matthew covered granola bar Medications: The patient is currently taking the following medications to manage his diabetes: -Basaglar 30 units daily -Januvia 100 mg daily -metformin 500 mg two tablets twice daily -glimepiride 2 mg two tablets twice daily Monitoring: He reports checking his glucose with accuchek compact meter BG Values: review of meter shows blood glucose range of 113-339 Other issues: Last Ophthalmology exam was within the past 12 months Hypoglycemia awareness:yes. 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 REVIEW OF SYSTEMS: GENERAL: No weight loss, malaise or fevers WEIGHT:is stable EYES:Denies any recent visual changes CARDIAC: no chest pain, dyspnea, palpitations, edema, orthopnea, cough LUNG: smokes 1-1.5 ppd GI: no nausea, fullness, vomiting, diarrhea, constipation, GI bleeding or heartburn :no dysuria, frequency, hesitancy, hematuria, polyuria, nocturia, UTIs, yeast infections, or kidney stones SKIN: Pt denies ulceration,cellulitis, abscess, acne, hirsutism, rashes, or lesions FEET:Pt denies callus formation, foot deformity including partial or complete amputation of the foot, ulceration, or peripheral neuropathy MUSCULO-SKELETAL: Pt denies joint pain, stiffness, swelling, cramping or weakness; No back pain, arthritis, full ROM NERVOUS SYSTEM: no numbness, paresthesias, weakness, cramping, burning or dizziness DEPRESSION: Pt denies The rest of the ROS is otherwise negative PHYSICAL EXAM: BP 115/73 Pulse 76 Ht 5' 11.732 (1.82m) Wt 239 lb (108.4kg) SpO2 96% BMI 32.66 kg/(m2). Wt: 109.3 kg (241 lb) BMI: 33.61 kg/(m2) Last 2 Encounter Wt Readings: Date: Wt: 01/05/2018 109.3 kg (241 lb) 11/20/2017 108.9 kg (240 lb) Appearance:Well appearing, alert, in no acute distress, well-hydrated, well nourished. and Obese Eyes:PERRLA, conjunctiva and sclera normal Neck:Supple, no adenopathy; thyroid symmetric, normal size, no bruits Heart: Regular rate and rhythm with no JVD appreciated Lungs:clear to auscultation Extremities: No skin discoloration and No edema Neuro:Awake, alert and oriented x 3, No involuntary motions. and Cranial nerves II-XII grossly intact Feet:Shoes and socks removed, No deformities, ulcers, calluses and Normal distal pulses Skin:Color, texture, turgor normal. No rashes or lesions IMPRESSION AND PLAN: (E11.65, Z79.4) Uncontrolled type 2 diabetes mellitus without complication, with long-term current use of insulin ([facility]) (primary encounter diagnosis) Comment: Poorly controlled diabetes mellitus type 2 with A1c at 9.1% Plan: -Medications: -Increase Basaglar to 40 units daily at bedtime -Continue Januvia 100 mg twice daily -Continue metformin 500 mg two tablets twice daily with meals -Change glimepiride 2 mg two tablets twice daily to 4 mg tablet one tablet twice daily -may consider start of Farxiga at next office visit -Refills: Yes, patient requests e-script prescription -Recommended diet: Low carbohydrate and Low saturated fat, low simple sugar, high fiber diet CONSULT TO NUTRITION THERAPY -Recommended exercise: 150 minutes of exercise per week -Monitor blood glucose 3 times per day. The patient was advised to contact the office if the blood sugar readings are consistently high or if having frequent hypoglycemia. -Driving and Diabetes has been reviewed with the patient Patient to continue to follow up with his Primary Care Provider and with other consultants regarding his other medical problems. Entire visit was 30 min with >50% of time spent as face to face counseling regarding blood sugar monitoring, review of risks, benefits, and side effects of medication(s), insulin administration and adjustment, symptoms AND treatment of hypoglycemia, importance of diet adherence and importance of exercise program and Plan of Care. Next visit in [address] Cano. Luana Garcia MSN, BAG LOADER, CDE Department of Endocrinology, Diabetes and Metabolism LIPID PANEL, BASIC Collected: 02/17/2018 Status: F Source: [place] 2:12 PM [facility] REPOSITORY TYPE CODE TESTS RESULT OUT OF REFERENCE UNITS RANGE LAB CHOL <200 mg/dL Cholesterol 141 Result Comment: <200 mg/dL, Desirable 200-239 mg/dL, Borderline high >239 mg/dL, High LAB TRIGLY <150 mg/dL Triglyceride High 215 Result Comment: <150 mg/dL, Normal 150-199 mg/dL, Borderline high 200-499 mg/dL, High >499 mg/dL, Very high LAB HDL >39 mg/dL HDL-Cholesterol Low 25 Result Comment: 40-59 mg/dL, Acceptable >59 mg/dL, High: Negative risk factor for coronary heart disease <40 mg/dL, Low: Positive risk factor for coronary heart disease LAB LDL <100 mg/dL LDL-Cholesterol 73 Result Comment: <100 mg/dL, Optimal 100-129 mg/dL, Near optimal/above optimal 130-159 mg/dL, Borderline high 160-189 mg/dL, High >189 mg/dL, Very high Secondary prevention optimal LDL Cholesterol levels are recommended to be < 70 mg/dL LAB NONHDL <130 mg/dL Non HDL Cholesterol 116 Result Comment: <130 mg/dL, Optimal 130-159 mg/dL, Near optimal/above optimal 160-189 mg/dL, Borderline high 190-219 mg/dL, High >219 mg/dL, Very high Secondary prevention optimal non HDL Cholesterol levels are recommended to be < 100 mg/dL LAB FT hrs Fasting Time 16 LAB VLDL <30 mg/dL High VLDL Cholesterol 43 LAB TCHDL <5.10 High TC:HDL Ratio 5.64 LAB LDLHDL <2.54 High LDL:HDL Ratio 2.92 Result Comment: Reference: 1. National Cholesterol Education Program ATP III Guideline At-A-Glance Quick Desk Reference: National Heart, Lung, and Blood [place]. National Institutes of Health. 2001: NIH Publication No. 01-3305. 2. An International Atherosclerosis Society position paper: global recommendations for the management of dyslipidemia: executive summary, Atherosclerosis. 2014: 232(2):410-413. Performed By: #### LIPB, HBA1C #### [facility] [address] [place] [id number] HEMOGLOBIN A1C Collected: 02/17/2018 Status: F Source: [place] 2:12 PM [facility] REPOSITORY TYPE CODE TESTS RESULT OUT OF REFERENCE UNITS RANGE LAB HGBA1C 4.3-5.6 % High Hemoglobin A1c 9.1 LAB HBA0 mg/dL Est. Average Glucose 214 Result Comment: eAG: (Estimated average glucose) is a calculated value from HgbA1c and is associate sales representative of the average blood glucose level in the last 2-3 month period. Performed By: #### LIPB, HBA1C #### [facility] [address] [place], [place] [address] KIMBERLY Observed: 02/16/2018 Status: COMPLETED Source: [place] 12:00 AM [facility] REPOSITORY Patient Outreach (FAMPST) ROSIO POLO ([id number]) 1960 [facility] Date Time Provider Department 02/16/18 [facility] During your visit today, we recorded the following information about you: Allergies As of Date: 02/16/2018 Noted Allergy Reaction INFLUENZA VIRUS VACCINES 11/13/2014 14 - Other: See Comments Comments: myalgias PREDNISONE 01/12/2013 2 - Rash SERTRALINE 07/11/2013 8 - GI Upset VICODIN (HYDROCODONE-ACETAMINOPHE*05/11/2013 9 - Itching Date Reviewed: 01/05/2018 Reviewed by: Maria uGadalupe [facility] Center[facility]il[facility] Max - Fully Assessed Visit Diagnosis:Medication management [Z79.899] Order(s):HGB A1C [OEGPJ0K] Order #: [id number] FUTURE LIPID PANEL BASIC [SQLIPB] Order #: [id number] FUTURE Prescriptions as of 02/16/2018 Sig: CLOTRIMAZOLE-BETAMETHASONE 1 * Apply 1 application to affect* JANUVIA 100 MG TABLET TAKE 1 TABLET ONCE DAILY X INSULIN GLARGINE (U-100) 100 * Inject 30 Units subcutaneousl* X PEN NEEDLE, DIABETIC 31 GAUGE* 1 Each once daily. PRAVASTATIN 40 MG TABLET Take 1 tablet by mouth daily * METFORMIN 500 MG TABLET Take 2 tablets by mouth twice* X GLIMEPIRIDE 2 MG TABLET TAKE 2 TABLETS TWICE A DAY WI* LANSOPRAZOLE 30 MG CAPSULE,DE* TAKE 1 TO 2 CAPSULES DAILY COMPOUNDED PRESCRIPTION CPAP Replacement parts, inclu* CPAP CPAP @ 10 cm of water with hu* BLOOD SUGAR DIAGNOSTIC STRIPS Test blood sugar(s) 3 times d* CITALOPRAM 20 MG TABLET Take 1 tablet by mouth once d* MIRTAZAPINE 30 MG TABLET Take 1 tablet by mouth daily * ASPIRIN 81 MG TABLET Take one(1) tablet daily. Problem List As Of Date 02/16/2018 Noted Resolved OVERWEIGHT [E66.9] INVALID FOR* Diabetes type 2, uncontrolled (HCC) [E11.65] INVALID FOR* More... Hyperlipemia [E78.5] INVALID FOR* More... ESOPHAGEAL REFLUX [K21.9] INVALID FOR* Cervical rib [Q76.5] INVALID FOR*12/09/2010 Personal history of tobacco use, presenting haz*INVALID FOR*03/29/2014 More... Abdominal pain, generalized [R10.84] INVALID FOR*12/09/2010 Abdominal pain, right upper quadrant [R10.11] INVALID FOR*12/09/2010 Acute gastritis without mention of hemorrhage [*INVALID FOR*12/09/2010 More... BENIGN JOYA SKIN TRUNK [D23.5] INVALID FOR* Calcaneal spur [M77.30] INVALID FOR*12/09/2010 Plantar fascial fibromatosis [M72.2] INVALID FOR*12/09/2010 Abnormality of gait [R26.9] INVALID FOR*12/09/2010 Venous thrombosis [I82.90] INVALID FOR*08/19/2012 Lumbosacral spondylosis without myelopathy [M47*INVALID FOR*03/29/2014 Pain in limb [M79.609] INVALID FOR*03/29/2014 More... Pain in joint, shoulder region [M25.519] INVALID FOR*12/09/2010 Anxiety [F41.9] INVALID FOR* More... Kidney stone [N20.0] INVALID FOR*12/09/2010 More... Lumbago [M54.5] INVALID FOR*03/29/2014 SARA on CPAP [G47.33, Z99.89] INVALID FOR* More... Bronchitis [J40] INVALID FOR* Tobacco use disorder [F17.200] INVALID FOR* Parasomnia [G47.50] INVALID FOR* More... SARA (obstructive sleep apnea) AHI 22 [G47.33] INVALID FOR*04/30/2017 Chronic left shoulder pain [M25.512, G89.29] INVALID FOR* Memory disturbance [R41.3] INVALID FOR* Encounter Status:Closed by EPIC, PRODUSER on 05/21/18 PROGRESS Observed: 01/05/2018 Status: COMPLETED Source: [place] 12:37 PM [facility] REPOSITORY HNO ID: [id number] Author: Maria Guadalupe (Anirudh) Service: (none) Author Type: Nurse Practitioner Type: Progress Notes Filed: 01/05/2018 12:44 PM Note Text: Subjective HPI HPI Rosio Polo is a 57 year old male who presents today for CC of left calf discomfort, no injury to cause. This started 3 days ago. Has tried nothing. Symptoms are worsened by nothing. Risk factors hx of dvt, patient is an everyday smoker. Mild swelling of left leg noted. Denies numbness/tingling of left lower extremity. .Patient presents with: Calf Pain: left calf pain denies injury x 3 days, previous blood clot PAST MEDICAL HISTORY Diagnosis Date - Acute gastritis without mention of hemorrhage - Benign neoplasm of colon - Esophageal reflux - HYPERLIPIDEMIA NEC/NOS 07/08/2005 - Kidney stone 04/23/2010 - Lumbago 03/10/2011 - Lumbosacral spondylosis without myelopathy 03/11/2010 - Obesity, unspecified - Obstructive sleep apnea (adult) (pediatric) 05/22/2011 - SARA on CPAP 05/22/2011 Dr. Salinas. CPAP used. 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 - Type II or unspecified type diabetes mellitus without mention of complication, not stated as uncontrolled - Venous thrombosis 10/08/2009 Postoperative post plantar fasaciaa release PAST SURGICAL HISTORY Procedure Laterality Date - COLONOSCOP W/ OR W/O BRSH SPEC 10/30/08 Colonoscopy - EGD W/O BRSH SPECIMEN W/BX 04/26/2007 Gastritis - EGD W/O OR W/BRUSH/WASH 10/21/2004 EGD - EGD W/O OR W/BRUSH/WASH 04/30/13 EGD - LAPAROSCOPIC CHOLEYCYSTECTOMY 05/04/2013 Cholecystectomy, lap - REPAIR FOREARM TENDON.MUSCLE Right elbow - SCOPE, PLANTAR FASCIOTOMY 09/18/2009 ALLERGIES Influenza Virus Vaccines; Prednisone; Sertraline; Vicodin [Hydrocodone-Acetaminophen] MEDICATIONS pravastatin (PRAVACHOL) 40 mg tablet Take 1 tablet by mouth daily at bedtime. For cholesterol. metFORMIN (GLUCOPHAGE) 500 mg tablet Take 2 tablets by mouth twice daily. glimepiride (AMARYL) 2 mg tablet TAKE 2 TABLETS TWICE A DAY WITH MEALS (BREAKFAST AND DINNER) insulin glargine (BASAGLAR KWIKPEN U-100 INSULIN) 100 unit/mL (3 mL) inpn Inject 30 Units subcutaneously daily at bedtime. As directed. clotrimazole-betamethasone (LOTRISONE) cream Apply 1 application to affected area twice daily as needed (rash). Insulin [place], Disposable, (PEN NEEDLES) 31 gauge x 1/4 ndle 1 Each once daily. lansoprazole (PREVACID) 30 mg capsule TAKE 1 TO 2 CAPSULES DAILY sitaGLIPtin (JANUVIA) 100 mg tablet Take 1 tablet by mouth once daily. COMPOUNDED PRESCRIPTION CPAP Replacement parts, including mask, straps, tubing, Diagnosis: SARA on CPAP - ICD9: 327.23, ICD10: G47.33 CPAP CPAP @ 10 cm of water with humidification. Mask (per patient preference) optional chin strap (if indicated), filters, tubing / heated tubing, heated humidity and lifetime supplies. Dx. SARA G47.33 327.23 blood sugar diagnostic (BLOOD GLUCOSE TEST) test strip Test blood sugar(s) 3 times daily. Dx: E11.65 Insulin: No. Please dispense Health Pro Easy Touch Test Strips. Code C15 citalopram (CELEXA) 20 mg tablet Take 1 tablet by mouth once daily. mirtazapine (REMERON) 30 mg tablet Take 1 tablet by mouth daily at bedtime. ASPIRIN 81 MG TAB Take one(1) tablet daily. FAMILY HISTORY Problem Relation Age of Onset - parkinson [OTHER] Mother - Heart Father CAD- triple bypass - Diabetes Father - Heart Paternal Grandfather - Diabetes Paternal Grandmother Social History Substance Use Topics - Smoking status: Current Every Day Smoker Packs/day: 1.50 Years: 38.00 Types: Cigarettes - Smokeless tobacco: Never Used - Alcohol use No Comment: rarely- once every 2-3 months Review of Systems Constitutional: Negative for chills and fever. Respiratory: Negative for cough, shortness of breath and wheezing. Cardiovascular: Negative for chest pain. Objective Blood pressure 136/80, pulse 78, temperature 36.5 ?C (97.7 ?F), temperature source Tympanic, resp. rate 16, weight 109.3 kg (241 lb). Physical Exam Constitutional: He is oriented to person, place, and time and well-developed, well-nourished, and in no distress. Non-toxic appearance. He does not have a sickly appearance. No distress. HENT: Head: Normocephalic and atraumatic. Cardiovascular: Normal rate, regular rhythm, S1 normal, S2 normal and normal heart sounds. Pulses: Dorsalis pedis pulses are 1+ on the right side. Posterior tibial pulses are 1+ on the right side. Pulmonary/Chest: Effort normal and breath sounds normal. Musculoskeletal: Left lower leg: He exhibits tenderness and swelling. He exhibits no bony tenderness, no edema, no deformity and no laceration. Legs: Neurological: He is alert and oriented to person, place, and time. Gait normal. Skin: He is not diaphoretic. ASSESSMENT/PLAN: 1. Pain of left calf - ICD9: 729.5, ICD10: M79.662 -if u/s positive will direct to ER, if negative will treat as muscle cramping and treat with nsiads/stretching discussed with patient. -If you experience chest pain/shortness of breath go to ER - US LEG VEIN DVT UNL VAS LAB - ordered for today -discussed smoking cessation Prescription instructions reviewed with patient as applicable. Patient advised if symptoms do not improve or if symptoms worsen sooner, to contact the office for further evaluation by their primary care physician. Potential red flag symptoms discussed with the patient. Reviewed appropriate action plan to take if red flag symptoms occur. Patient agreeable to treatment plan. Maria Guadalupe Max APRN.ANIRUDH CNOV Observed: 01/05/2018 Status: COMPLETED Source: [place] 12:00 PM [facility] REPOSITORY Office Visit (WSTR) ROSIO POLO ([id number]) 1960 M NFR Date Time Provider Department 01/05/18 12:00 PM MARIA GUADALUPE MAX (ANIRUDH) WSTR During your visit today, we recorded the following information about you: Temperature Pulse Respiration Blood pressure 97.7 degrees 78/minute 16/minute 136/80 Weight 109.3 kg Maria Guadalupe Max APRN.CNP 01/05/2018 12:44 PM Signed Subjective HPI HPI Rosio Polo is a 57 year old male who presents today for CC of left calf discomfort, no injury to cause. This started 3 days ago. Has tried nothing. Symptoms are worsened by nothing. Risk factors hx of dvt, patient is an everyday smoker. Mild swelling of left leg noted. Denies numbness/tingling of left lower extremity. .Patient presents with: Calf Pain: left calf pain denies injury x 3 days, previous blood clot PAST MEDICAL HISTORY Diagnosis Date - Acute gastritis without mention of hemorrhage - Benign neoplasm of colon - Esophageal reflux - HYPERLIPIDEMIA NEC/NOS 07/08/2005 - Kidney stone 04/23/2010 - Lumbago 03/10/2011 - Lumbosacral spondylosis without myelopathy 03/11/2010 - Obesity, unspecified - Obstructive sleep apnea (adult) (pediatric) 05/22/2011 - SARA on CPAP 05/22/2011 Dr. Salinas. CPAP used. 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 - Type II or unspecified type diabetes mellitus without mention of complication, not stated as uncontrolled - Venous thrombosis 10/08/2009 Postoperative post plantar fasaciaa release PAST SURGICAL HISTORY Procedure Laterality Date - COLONOSCOP W/ OR W/O BRSH SPEC 10/30/08 Colonoscopy - EGD W/O BRSH SPECIMEN W/BX 04/26/2007 Gastritis - EGD W/O OR W/BRUSH/WASH 10/21/2004 EGD - EGD W/O OR W/BRUSH/WASH 04/30/13 EGD - LAPAROSCOPIC CHOLEYCYSTECTOMY 05/04/2013 Cholecystectomy, lap - REPAIR FOREARM TENDON.MUSCLE Right elbow - SCOPE, PLANTAR FASCIOTOMY 09/18/2009 ALLERGIES Influenza Virus Vaccines; Prednisone; Sertraline; Vicodin [Hydrocodone-Acetaminophen] MEDICATIONS pravastatin (PRAVACHOL) 40 mg tablet Take 1 tablet by mouth daily at bedtime. For cholesterol. metFORMIN (GLUCOPHAGE) 500 mg tablet Take 2 tablets by mouth twice daily. glimepiride (AMARYL) 2 mg tablet TAKE 2 TABLETS TWICE A DAY WITH MEALS (BREAKFAST AND DINNER) insulin glargine (BASAGLAR KWIKPEN U-100 INSULIN) 100 unit/mL (3 mL) inpn Inject 30 Units subcutaneously daily at bedtime. As directed. clotrimazole-betamethasone (LOTRISONE) cream Apply 1 application to affected area twice daily as needed (rash). Insulin [place], Disposable, (PEN NEEDLES) 31 gauge x 1/4 ndle 1 Each once daily. lansoprazole (PREVACID) 30 mg capsule TAKE 1 TO 2 CAPSULES DAILY sitaGLIPtin (JANUVIA) 100 mg tablet Take 1 tablet by mouth once daily. COMPOUNDED PRESCRIPTION CPAP Replacement parts, including mask, straps, tubing, Diagnosis: SARA on CPAP - ICD9: 327.23, ICD10: G47.33 CPAP CPAP @ 10 cm of water with humidification. Mask (per patient preference) optional chin strap (if indicated), filters, tubing / heated tubing, heated humidity and lifetime supplies. Dx. SARA G47.33 327.23 blood sugar diagnostic (BLOOD GLUCOSE TEST) test strip Test blood sugar(s) 3 times daily. Dx: E11.65 Insulin: No. Please dispense Health Pro Easy Touch Test Strips. Code C15 citalopram (CELEXA) 20 mg tablet Take 1 tablet by mouth once daily. mirtazapine (REMERON) 30 mg tablet Take 1 tablet by mouth daily at bedtime. ASPIRIN 81 MG TAB Take one(1) tablet daily. FAMILY HISTORY Problem Relation Age of Onset - parkinson [OTHER] Mother - Heart Father CAD- triple bypass - Diabetes Father - Heart Paternal Grandfather - Diabetes Paternal Grandmother Social History Substance Use Topics - Smoking status: Current Every Day Smoker Packs/day: 1.50 Years: 38.00 Types: Cigarettes - Smokeless tobacco: Never Used - Alcohol use No Comment: rarely- once every 2-3 months Review of Systems Constitutional: Negative for chills and fever. Respiratory: Negative for cough, shortness of breath and wheezing. Cardiovascular: Negative for chest pain. Objective Blood pressure 136/80, pulse 78, temperature 36.5 ?C (97.7 ?F), temperature source Tympanic, resp. rate 16, weight 109.3 kg (241 lb). Physical Exam Constitutional: He is oriented to person, place, and time and well-developed, well-nourished, and in no distress. Non-toxic appearance. He does not have a sickly appearance. No distress. HENT: Head: Normocephalic and atraumatic. Cardiovascular: Normal rate, regular rhythm, S1 normal, S2 normal and normal heart sounds. Pulses: Dorsalis pedis pulses are 1+ on the right side. Posterior tibial pulses are 1+ on the right side. Pulmonary/Chest: Effort normal and breath sounds normal. Musculoskeletal: Left lower leg: He exhibits tenderness and swelling. He exhibits no bony tenderness, no edema, no deformity and no laceration. Legs: Neurological: He is alert and oriented to person, place, and time. Gait normal. Skin: He is not diaphoretic. ASSESSMENT/PLAN: 1. Pain of left calf - ICD9: 729.5, ICD10: M79.662 -if u/s positive will direct to ER, if negative will treat as muscle cramping and treat with nsiads/stretching discussed with patient. -If you experience chest pain/shortness of breath go to ER - US LEG VEIN DVT UNL VAS LAB - ordered for today -discussed smoking cessation Prescription instructions reviewed with patient as applicable. Patient advised if symptoms do not improve or if symptoms worsen sooner, to contact the office for further evaluation by their primary care physician. Potential red flag symptoms discussed with the patient. Reviewed appropriate action plan to take if red flag symptoms occur. Patient agreeable to treatment plan. Maria Guadalupe Max APRN.ANIRUDH Referring Provider: SELF [200] Allergies As of Date: 01/05/2018 Noted Allergy Reaction INFLUENZA VIRUS VACCINES 11/13/2014 14 - Other: See Comments Comments: myalgias PREDNISONE 01/12/2013 2 - Rash SERTRALINE 07/11/2013 8 - GI Upset VICODIN (HYDROCODONE-ACETAMINOPHE*05/11/2013 9 - Itching Date Reviewed: 01/05/2018 Reviewed by: Maria Guadalupe (Registered Nurse Maternity) - Fully Assessed Reason for Visit: Calf Pain [208] Cmt: left calf pain denies injury x 3 days, previous blood clot Primary Visit Diagnosis:Pain of left calf [M79.662] Order(s):US LEG VEIN DVT UNL VAS LAB [[id number]] Order #: [id number] Prescriptions as of 01/05/2018 Sig: PRAVASTATIN 40 MG TABLET Take 1 tablet by mouth daily * METFORMIN 500 MG TABLET Take 2 tablets by mouth twice* GLIMEPIRIDE 2 MG TABLET TAKE 2 TABLETS TWICE A DAY WI* INSULIN GLARGINE (U-100) 100 * Inject 30 Units subcutaneousl* CLOTRIMAZOLE-BETAMETHASONE 1 * Apply 1 application to affect* PEN NEEDLE, DIABETIC 31 GAUGE* 1 Each once daily. LANSOPRAZOLE 30 MG CAPSULE,DE* TAKE 1 TO 2 CAPSULES DAILY SITAGLIPTIN 100 MG TABLET Take 1 tablet by mouth once d* COMPOUNDED PRESCRIPTION CPAP Replacement parts, inclu* CPAP CPAP @ 10 cm of water with hu* BLOOD SUGAR DIAGNOSTIC STRIPS Test blood sugar(s) 3 times d* CITALOPRAM 20 MG TABLET Take 1 tablet by mouth once d* MIRTAZAPINE 30 MG TABLET Take 1 tablet by mouth daily * ASPIRIN 81 MG TABLET Take one(1) tablet daily. Problem List As Of Date 01/05/2018 Noted Resolved OVERWEIGHT [E66.9] INVALID FOR* Diabetes type 2, uncontrolled (HCC) [E11.65] INVALID FOR* More... Hyperlipemia [E78.5] INVALID FOR* More... ESOPHAGEAL REFLUX [K21.9] INVALID FOR* Cervical rib [Q76.5] INVALID FOR*12/09/2010 Personal history of tobacco use, presenting haz*INVALID FOR*03/29/2014 More... Abdominal pain, generalized [R10.84] INVALID FOR*12/09/2010 Abdominal pain, right upper quadrant [R10.11] INVALID FOR*12/09/2010 Acute gastritis without mention of hemorrhage [*INVALID FOR*12/09/2010 More... BENIGN JOYA SKIN TRUNK [D23.5] INVALID FOR* Calcaneal spur [M77.30] INVALID FOR*12/09/2010 Plantar fascial fibromatosis [M72.2] INVALID FOR*12/09/2010 Abnormality of gait [R26.9] INVALID FOR*12/09/2010 Venous thrombosis [I82.90] INVALID FOR*08/19/2012 Lumbosacral spondylosis without myelopathy [M47*INVALID FOR*03/29/2014 Pain in limb [M79.609] INVALID FOR*03/29/2014 More... Pain in joint, shoulder region [M25.519] INVALID FOR*12/09/2010 Anxiety [F41.9] INVALID FOR* More... Kidney stone [N20.0] INVALID FOR*12/09/2010 More... Lumbago [M54.5] INVALID FOR*03/29/2014 SARA on CPAP [G47.33, Z99.89] INVALID FOR* More... Bronchitis [J40] INVALID FOR* Tobacco use disorder [F17.200] INVALID FOR* Parasomnia [G47.50] INVALID FOR* More... SARA (obstructive sleep apnea) AHI 22 [G47.33] INVALID FOR*04/30/2017 Chronic left shoulder pain [M25.512, G89.29] INVALID FOR* Memory disturbance [R41.3] INVALID FOR* Encounter Status:Closed by MARIA GUADALUPE MAX CNP on 01/05/18 CNCO Observed: 12/18/2017 Status: COMPLETED Source: [place] 12:00 AM [facility] REPOSITORY Letter Text Rosio Polo [address] [place] [address] 12/18/2017 [facility] #: [id number] Dear , Due to a change in the provider's schedule it has been necessary to reschedule your Appointment. Your original appointment was scheduled for 03/01/18 at 3:40 PM with Tadeo Gamboa M.D. Your new appointment is now scheduled on 03/02/2018 at 2:40 PM with BRANDON Cole. If this new appointment is not convenient for you, please contact our office at [phone]. Thank you for choosing the [facility] as your Healthcare Provider . Sincerely, Internal Medicine Appointment Office PROGRESS Observed: 12/03/2017 Status: COMPLETED Source: [place] 4:06 PM [facility]POSIT[facility] HNO ID: [id number] Author: Mandi Zavala Service: (none) Author Type: Physician Type: Progress Notes Filed: 12/03/2017 4:22 PM Note Text: Rosio Polo 1960 [address] [facility] [address] December 03, 2017 Time: 4:07 PM FOLLOW-UP NOTE Accompanied by: spouse SUBJECTIVE: Rosio Polo is a 57 year old male seen today for report initially referred for cognitive complaints. Results of previously ordered diagnostic studies, previous records and imaging studies were reviewed and summarized. On evaluation today: Patient came back to discuss results of testing and develop treatment plan. No significant behavioral symptoms noted. Overall no changes in the quality of life and overall functioning since last visit reported. No significant changes in cognition since last visit/assessment. Psychiatric ROS: Negative for: Dee/Hypomania Psychosis OCD Anxiety disorders Past Psychiatric History was reviewed and no changes since last visit Family History was reviewed and no changes form previous were noticed Social History was reviewed and no changes were noticed since previous visit No changes since last assessment Social History Marital status: Spouse name: Years of education: Number of children: 2 Occupational History Occupation Employer Comment TR[email or web address] Social History Main Topics Smoking status: Current Every Day Smoker Packs/day: 1.50 Years: 38.00 Types: Cigarettes Smokeless status: Never Used Alcohol use: No Comment: rarely- once every 2-3 months Drug use: No Social History reviewed by Mandi Zavala MD PAST MEDICAL HISTORY Diagnosis Date - Acute gastritis without mention of hemorrhage - Benign neoplasm of colon - Esophageal reflux - HYPERLIPIDEMIA NEC/NOS 07/08/2005 - Kidney stone 04/23/2010 - Lumbago 03/10/2011 - Lumbosacral spondylosis without myelopathy 03/11/2010 - Obesity, unspecified - Obstructive sleep apnea (adult) (pediatric) 05/22/2011 - SARA on CPAP 05/22/2011 Dr. Salinas. CPAP used. 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 glimepiride (AMARYL) 2 mg tablet TAKE 2 TABLETS TWICE A DAY WITH MEALS (BREAKFAST AND DINNER) insulin glargine (BASAGLAR KWIKPEN U-100 INSULIN) 100 unit/mL (3 mL) inpn Inject 30 Units subcutaneously daily at bedtime. As directed. clotrimazole-betamethasone (LOTRISONE) cream Apply 1 application to affected area twice daily as needed (rash). Insulin [place], Disposable, (PEN NEEDLES) 31 gauge x 1/4 ndle 1 Each once daily. pravastatin (PRAVACHOL) 40 mg tablet Take 1 tablet by mouth daily at bedtime. For cholesterol. lansoprazole (PREVACID) 30 mg capsule TAKE 1 TO 2 CAPSULES DAILY sitaGLIPtin (JANUVIA) 100 mg tablet Take 1 tablet by mouth once daily. COMPOUNDED PRESCRIPTION CPAP Replacement parts, including mask, straps, tubing, Diagnosis: SARA on CPAP - ICD9: 327.23, ICD10: G47.33 CPAP CPAP @ 10 cm of water with humidification. Mask (per patient preference) optional chin strap (if indicated), filters, tubing / heated tubing, heated humidity and lifetime supplies. Dx. SARA G47.33 327.23 blood sugar diagnostic (BLOOD GLUCOSE TEST) test strip Test blood sugar(s) 3 times daily. Dx: E11.65 Insulin: No. Please dispense Health Pro Easy Touch Test Strips. Code C15 citalopram (CELEXA) 20 mg tablet Take 1 tablet by mouth once daily. mirtazapine (REMERON) 30 mg tablet Take 1 tablet by mouth daily at bedtime. ASPIRIN 81 MG TAB Take one(1) tablet daily. No current facility-administered medications on file prior to visit. Mental Status Exam: Patient presents with fair grooming and behavior. Depressed but improving Thought process is slightly circumstantial. Poverty of verbal engagement. No evidence for thought content or perception abnormalities today. Insight and judgement limited by limited cognition Risk assessment: Risk factors: Recent deterioration of health Chronic illness h/o depression partial control on medication Protective factors: Future oriented. No substance use. No past psychiatric history. No suicidal ideations neither plan nor h/o attempts. Good support system. Imminent risk for suicide low. Neurological Exam-no changes since last visit NEUROLOGIC EXAMINATION Speech: can name, repeat with no dysarthria Cranial Nerves II: VFFTC, PERRLA with gaze directed as instructed III, IV, : EOMI with smooth pursuit and normal saccades V: Facial sensation is intact bilaterally with normal jaw closure VII: Eye closure and smile are normal with no facial droop or flattening of nasal labial fold VIII: Hearing is grossly intact bilaterally IX, X: Uvula elevates in the midline bilaterally XI: Sternocleidomastoid and trapezius have normal strength XII: Tongue protrudes in the midline Motor Strength is 5/5 in upper and lower extremities Finger strength is normal bilaterally Normal muscle bulk with no fasciculations Upper extremity rigidity is 1 bilateral but only with Froment maneuver No bradykinesia, abnormal movements or postural instability Foot stomp is normal bilaterally Arm roll is normal bilaterally Horizontal arm extension: no tremor Pronator drift: negative Reflexes +2 bilateral in U/L extremities Palmomental: negative Snout: negative Glabellar: negative Babinski: absent, mute plantar reflexes bilaterally Coordination Cerebellar: no dysmetria or dysdiadochokinesis, normal pronation/supination Cerebrospinal tract: Toe tap normal bilaterally, Leg raise normal bilaterally Finger fine motor: Tap w/ thumb normal bilaterally, Flex./ext. normal bilaterally Finger to nose: good Posture and Gait No postural instability, dystonia, scoliosis, abnormal lordosis or kyphosis Rise from chair with arms folded: fair Gait: normal with good arm swing, stride and turn Heel walk: steady Romberg: negative Tandem gait: slightly unsteady Retropulsion recovery: good Sensation Polyneuropathy, length dependant Diagnostic Results: Laboratory findings within normal limits: MOCA at initial evaluation: MRI: No evidence of an acute intracranial process or intracranial mass. ?Mild generalized volume loss. ?Hippocampal volumes at the 99th percentile when compared to age matched normal controls by quantitative analysis. ?Mild white matter disease which is nonspecific but likely reflective of chronic microvascular ischemia. NPT: Results show inefficient processing speed and deficits in aspects of executive functioning (extremely low response inhibition and cognitive flexibility; borderline phonemic fluency, errors, and organization). Memory is variable. His encoding of verbal (words) and visual (figures) information is extremely low, but he benefits from repetition and learning is intact. His extremely low delayed recall and recognition of words is likely secondary to executive functioning deficits, as his retention of figures is intact. He is visibly anxious on memory for stories, likely contributing to poor performance on that task. Language is notable for mild dysarthria and inefficiencies in sentence repetition and naming. Basic attention, visuospatial abilities, and semantic fluency are intact. ? Overall, his profile is most consistent with frontal and subcortical dysfunction. These results, in addition to reports of progressive difficulties with activities of daily living, are concerning for a neurodegenerative process. The presence of REM sleep behavior disorder, possible fluctuations and Parkinsonian features, as well as his family history, raise concern for presence of Lewy Body etiology. Although uncontrolled diabetes and anxiety may contribute to cognitive difficulties, they do not fully explain them. At this time, deficient are consistent with mild cognitive impairment- multi-domain. ? RECOMMENDATIONS 1. Mr. Polo will likely need continued assistance with activities of daily living, such as managing his medications. It is particularly important that he receive assistance with managing his diabetes. Consultation with social work may be useful to assist his family in exploring resources for support and future planning. 2. Given Mr. Polo?s reports of driving concerns, along with evidence of impairments in executive functioning, driving is not recommended. 3. Mr. Polo may find the following sleep recommendations helpful: a. Place barriers on the side of the bed and/or padding near the bed. b. Move furniture and clutter away from the bed. c. Remove dangerous objects from the bedroom. Repeat neuropsychological evaluation in 12 months may be beneficial to further assess cognitive trajectory. IMPRESSION and ASSESSMENT: Depression unspecified in partial remission on medication. Minor Neurocognitive Impairment Multifactorial Multidomain with predominantly executive dysfunction. Family history contributory. 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 Diabetes mellitus type II poorly controlled (currently on insulins) AD/PD maternal side mother and grandmother. 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 Neurological examination nonfocal with some difficulties with Luria test. Slow speed of processing and multiple cardiovascular events as well as diabetes with polyneuropathy Obstructive sleep apnea on CPAP. Symptoms suggestive of RBD for further evaluation. Normal volumetric study with minimal only white matter disease, presence of REM sleep behavior disorder and Parkinsonian features, as well as his family history, raise concern for presence of Lewy Body etiology. Patient doesn't however fulfill the criteria for LBD. Re-evaluation necessary. PLAN: - Consider DaTscan next visit. -Patient to provide recent polysomnography results. - Supplementation with vitamin D3 1000 mg -Otherwise maintain current drug regimen. -Maintain physically, socially and cognitively healthy lifestyle. -Consider re-evaluation in one year or at the other time (primary provider discretion) if clinically required. - Follow-up visit with [facility]- PA/nurse The meaning of proposed diagnosis discussed and explained in details. Rationale behind medication, mechanisms of action and potential side effects discussed at length. The need for follow-ups underlined. I stressed the importance of mental and physical activity in preserving brain health. Details of the plan and instructions discussed at length. Patient expressed understanding of the details and are willing to follow all the recommendations. All the questions answered and concerns addressed. Today's session was combined as well with psychiatric therapeutic intervention of a supportive type. Fears and concerns were validated. Support and reassurance provided. I spent a total of 70 minutes with the patient. Over 30 min was spent in discussing diagnoses medication management and coordination of care as indicated above. Mandi Zavala MD, PhD Geriatric Psychiatry [facility] CC: 1. Tadeo Gamboa MD, (fax) [phone] CNOV Observed: 11/20/2017 Status: COMPLETED Source: [place] 2:00 PM [facility] REPOSITORY Office Visit (HAYLEE) ROSIO POLO ([id number]) 1960 M NFR Date Time Provider Department 11/20/17 2:00 PM MANDI ZAVALA During your visit today, we recorded the following information about you: Pulse Respiration Blood pressure Weight 82/minute 12/minute 133/69 108.9 kg Height 1.803 m Sharad Roman RN, RN 11/20/2017 1:42 PM Signed Rosio Ray Yareli is a 57 year old year old man seen today for Report Visit. Accompanied by: spouse. Testing completed: MRI, NPT, labs Changes or concerns since last office visit? None Vital Signs: BP 133/69 Pulse 82 Resp 12 Ht 180.3 cm (5' 11ANDquot;) Wt 108.9 kg (240 lb) BMI 33.47 kg/m2 Mandi Zavala MD 11/20/2017 2:23 PM Signed As a result of today's evaluation and discussion, we ordered these tests: These are our recommendations: Melatonin 5 mg at 10:00 pm. Vitamin D3 1000 units with food. After all the diagnostic procedures listed above please schedule report visit with Dr. Zavala to discuss results and develop treatment plan. You can arrange this with scheduling on the 3 ed floor, as well as tests and therapies if needed. Please call us with any questions or concerns at [phone] ( you will reach [employer] clinical sales assistant displays) our or scheduling at [phone]. Here's how to keep your brain healthy: ? Focus on what you enjoy ? Maintain an active social life as much as possible ? Exercise as tolerated, preferably 30 minutes 4 times/week or 40 min. 3x/week ? Get 7-8 hrs of sleep per night with good sleep hygiene ? Maintain a predictable daily routine ? Keep a daily journal to organize thoughts, goals and accomplishments ? Try learning new hobbies or skills, even if you're not great at them ? Keep your brain active with puzzles and games you enjoy Mandi Zavala MD 12/03/2017 4:22 PM Signed Rosio Polo 1960 [id number] [facility] [address] December 03, 2017 Time: 4:07 PM FOLLOW-UP NOTE Accompanied by: spouse SUBJECTIVE: Rosio Polo is a 57 year old male seen today for report initially referred for cognitive complaints. Results of previously ordered diagnostic studies, previous records and imaging studies were reviewed and summarized. On evaluation today: Patient came back to discuss results of testing and develop treatment plan. No significant behavioral symptoms noted. Overall no changes in the quality of life and overall functioning since last visit reported. No significant changes in cognition since last visit/assessment. Psychiatric ROS: Negative for: Dee/Hypomania Psychosis OCD Anxiety disorders Past Psychiatric History was reviewed and no changes since last visit Family History was reviewed and no changes form previous were noticed Social History was reviewed and no changes were noticed since previous visit No changes since last assessment Social History Marital status: Spouse name: Years of education: Number of children: 2 Occupational History Occupation Employer Comment [employer] * [employer] Social History Main Topics Smoking status: Current Every Day Smoker Packs/day: 1.50 Years: 38.00 Types: Cigarettes Smokeless status: Never Used Alcohol use: No Comment: rarely- once every 2-3 months Drug use: No Social History reviewed by Mandi Zavala MD PAST MEDICAL HISTORY Diagnosis Date - Acute gastritis without mention of hemorrhage - Benign neoplasm of colon - Esophageal reflux - HYPERLIPIDEMIA NEC/NOS 07/08/2005 - Kidney stone 04/23/2010 - Lumbago 03/10/2011 - Lumbosacral spondylosis without myelopathy 03/11/2010 - Obesity, unspecified - Obstructive sleep apnea (adult) (pediatric) 05/22/2011 - SARA on CPAP 05/22/2011 Dr. Salinas. CPAP used. 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 glimepiride (AMARYL) 2 mg tablet TAKE 2 TABLETS TWICE A DAY WITH MEALS (BREAKFAST AND DINNER) insulin glargine (BASAGLAR KWIKPEN U-100 INSULIN) 100 unit/mL (3 mL) inpn Inject 30 Units subcutaneously daily at bedtime. As directed. clotrimazole-betamethasone (LOTRISONE) cream Apply 1 application to affected area twice daily as needed (rash). Insulin [place], Disposable, (PEN NEEDLES) 31 gauge x 1/4ANDquot; ndle 1 Each once daily. pravastatin (PRAVACHOL) 40 mg tablet Take 1 tablet by mouth daily at bedtime. For cholesterol. lansoprazole (PREVACID) 30 mg capsule TAKE 1 TO 2 CAPSULES DAILY sitaGLIPtin (JANUVIA) 100 mg tablet Take 1 tablet by mouth once daily. COMPOUNDED PRESCRIPTION CPAP Replacement parts, including mask, straps, tubing, Diagnosis: SARA on CPAP - ICD9: 327.23, ICD10: G47.33 CPAP CPAP @ 10 cm of water with humidification. Mask (per patient preference) optional chin strap (if indicated), filters, tubing / heated tubing, heated humidity and lifetime supplies. Dx. SARA G47.33 327.23 blood sugar diagnostic (BLOOD GLUCOSE TEST) test strip Test blood sugar(s) 3 times daily. Dx: E11.65 Insulin: No. Please dispense Health Pro Easy Touch Test Strips. Code C15 citalopram (CELEXA) 20 mg tablet Take 1 tablet by mouth once daily. mirtazapine (REMERON) 30 mg tablet Take 1 tablet by mouth daily at bedtime. ASPIRIN 81 MG TAB Take one(1) tablet daily. No current facility-administered medications on file prior to visit. Mental Status Exam: Patient presents with fair grooming and behavior. Depressed but improving Thought process is slightly circumstantial. Poverty of verbal engagement. No evidence for thought content or perception abnormalities today. Insight and judgement limited by limited cognition Risk assessment: Risk factors: Recent deterioration of health Chronic illness h/o depression partial control on medication Protective factors: Future oriented. No substance use. No past psychiatric history. No suicidal ideations neither plan nor h/o attempts. Good support system. Imminent risk for suicide low. Neurological Exam-no changes since last visit NEUROLOGIC EXAMINATION Speech: can name, repeat with no dysarthria Cranial Nerves II: VFFTC, PERRLA with gaze directed as instructed III, IV, : EOMI with smooth pursuit and normal saccades V: Facial sensation is intact bilaterally with normal jaw closure VII: Eye closure and smile are normal with no facial droop or flattening of nasal labial fold VIII: Hearing is grossly intact bilaterally IX, X: Uvula elevates in the midline bilaterally XI: Sternocleidomastoid and trapezius have normal strength XII: Tongue protrudes in the midline Motor Strength is 5/5 in upper and lower extremities Finger strength is normal bilaterally Normal muscle bulk with no fasciculations Upper extremity rigidity is 1 bilateral but only with Froment maneuver No bradykinesia, abnormal movements or postural instability Foot stomp is normal bilaterally Arm roll is normal bilaterally Horizontal arm extension: no tremor Pronator drift: negative Reflexes +2 bilateral in U/L extremities Palmomental: negative Snout: negative Glabellar: negative Babinski: absent, mute plantar reflexes bilaterally Coordination Cerebellar: no dysmetria or dysdiadochokinesis, normal pronation/supination Cerebrospinal tract: Toe tap normal bilaterally, Leg raise normal bilaterally Finger fine motor: Tap w/ thumb normal bilaterally, Flex./ext. normal bilaterally Finger to nose: good Posture and Gait No postural instability, dystonia, scoliosis, abnormal lordosis or kyphosis Rise from chair with arms folded: fair Gait: normal with good arm swing, stride and turn Heel walk: steady Romberg: negative Tandem gait: slightly unsteady Retropulsion recovery: good Sensation Polyneuropathy, length dependant Diagnostic Results: Laboratory findings within normal limits: MOCA at initial evaluation: MRI: No evidence of an acute intracranial process or intracranial mass. ?Mild generalized volume loss. ?Hippocampal volumes at the 99th percentile when compared to age matched normal controls by quantitative analysis. ?Mild white matter disease which is nonspecific but likely reflective of chronic microvascular ischemia. NPT: Results show inefficient processing speed and deficits in aspects of executive functioning (extremely low response inhibition and cognitive flexibility; borderline phonemic fluency, errors, and organization). Memory is variable. His encoding of verbal (words) and visual (figures) information is extremely low, but he benefits from repetition and learning is intact. His extremely low delayed recall and recognition of words is likely secondary to executive functioning deficits, as his retention of figures is intact. He is visibly anxious on memory for stories, likely contributing to poor performance on that task. Language is notable for mild dysarthria and inefficiencies in sentence repetition and naming. Basic attention, visuospatial abilities, and semantic fluency are intact. ? Overall, his profile is most consistent with frontal and subcortical dysfunction. These results, in addition to reports of progressive difficulties with activities of daily living, are concerning for a neurodegenerative process. The presence of REM sleep behavior disorder, possible fluctuations and Parkinsonian features, as well as his family history, raise concern for presence of Lewy Body etiology. Although uncontrolled diabetes and anxiety may contribute to cognitive difficulties, they do not fully explain them. At this time, deficient are consistent with mild cognitive impairment- multi-domain. ? RECOMMENDATIONS 1. Mr. Polo will likely need continued assistance with activities of daily living, such as managing his medications. It is particularly important that he receive assistance with managing his diabetes. Consultation with social work may be useful to assist his family in exploring resources for support and future planning. 2. Given Mr. Polo?s reports of driving concerns, along with evidence of impairments in executive functioning, driving is not recommended. 3. Mr. Polo may find the following sleep recommendations helpful: a. Place barriers on the side of the bed and/or padding near the bed. b. Move furniture and clutter away from the bed. c. Remove dangerous objects from the bedroom. Repeat neuropsychological evaluation in 12 months may be beneficial to further assess cognitive trajectory. IMPRESSION and ASSESSMENT: Depression unspecified in partial remission on medication. Minor Neurocognitive Impairment Multifactorial Multidomain with predominantly executive dysfunction. Family history contributory. 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 Diabetes mellitus type II poorly controlled (currently on insulins) AD/PD maternal side mother and grandmother. MOCA 21/ with predominantly amnestic pattern/executive dysfunction pattern. Neurological examination nonfocal with some difficulties with Luria test. Slow speed of processing and multiple cardiovascular events as well as diabetes with polyneuropathy Obstructive sleep apnea on CPAP. Symptoms suggestive of RBD for further evaluation. Normal volumetric study with minimal only white matter disease, presence of REM sleep behavior disorder and Parkinsonian features, as well as his family history, raise concern for presence of Lewy Body etiology. Patient doesn't however fulfill the criteria for LBD. Re-evaluation necessary. PLAN: - Consider DaTscan next visit. -Patient to provide recent polysomnography results. - Supplementation with vitamin D3 1000 mg -Otherwise maintain current drug regimen. -Maintain physically, socially and cognitively healthy lifestyle. -Consider re-evaluation in one year or at the other time (primary provider discretion) if clinically required. - Follow-up visit with [facility]- PA/nurse The meaning of proposed diagnosis discussed and explained in details. Rationale behind medication, mechanisms of action and potential side effects discussed at length. The need for follow-ups underlined. I stressed the importance of mental and physical activity in preserving brain health. Details of the plan and instructions discussed at length. Patient expressed understanding of the details and are willing to follow all the recommendations. All the questions answered and concerns addressed. Today's session was combined as well with psychiatric therapeutic intervention of a supportive type. Fears and concerns were validated. Support and reassurance provided. I spent a total of 70 minutes with the patient. Over 30 min was spent in discussing diagnoses medication management and coordination of care as indicated above. Mandi Zavala MD, PhD Geriatric Psychiatry [facility] CC: 1. Tadeo Gamboa MD, (fax) [phone] Referring Provider: MANDI ZAVALA [[id number]] Allergies As of Date: 11/20/2017 Noted Allergy Reaction INFLUENZA VIRUS VACCINES 11/13/2014 14 - Other: See Comments Comments: myalgias PREDNISONE 01/12/2013 2 - Rash SERTRALINE 07/11/2013 8 - GI Upset VICODIN (HYDROCODONE-ACETAMINOPHE*05/11/2013 9 - Itching Date Reviewed: 11/20/2017 Reviewed by: Sharad (Rn) EDGARD Roman - Fully Assessed Reason for Visit: Follow Up [171] Primary Visit Diagnosis:RBD (REM behavioral disorder) [G47.52] Other Visit Diagnoses:Depression, unspecified depression type [F32.9] Mild cognitive impairment [G31.84] Mild cognitive impairment- Nonamnestic type [G31.84] Prescriptions as of 11/20/2017 Sig: METFORMIN 500 MG TABLET Take 2 tablets by mouth twice* GLIMEPIRIDE 2 MG TABLET TAKE 2 TABLETS TWICE A DAY WI* INSULIN GLARGINE (U-100) 100 * Inject 30 Units subcutaneousl* CLOTRIMAZOLE-BETAMETHASONE 1 * Apply 1 application to affect* PEN NEEDLE, DIABETIC 31 GAUGE* 1 Each once daily. PRAVASTATIN 40 MG TABLET Take 1 tablet by mouth daily * LANSOPRAZOLE 30 MG CAPSULE,DE* TAKE 1 TO 2 CAPSULES DAILY SITAGLIPTIN 100 MG TABLET Take 1 tablet by mouth once d* COMPOUNDED PRESCRIPTION CPAP Replacement parts, inclu* CPAP CPAP @ 10 cm of water with hu* BLOOD SUGAR DIAGNOSTIC STRIPS Test blood sugar(s) 3 times d* CITALOPRAM 20 MG TABLET Take 1 tablet by mouth once d* MIRTAZAPINE 30 MG TABLET Take 1 tablet by mouth daily * ASPIRIN 81 MG TABLET Take one(1) tablet daily. Problem List As Of Date 11/20/2017 Noted Resolved OVERWEIGHT [E66.9] INVALID FOR* Diabetes type 2, uncontrolled (HCC) [E11.65] INVALID FOR* More... Hyperlipemia [E78.5] INVALID FOR* More... ESOPHAGEAL REFLUX [K21.9] INVALID FOR* Cervical rib [Q76.5] INVALID FOR*12/09/2010 Personal history of tobacco use, presenting haz*INVALID FOR*03/29/2014 More... Abdominal pain, generalized [R10.84] INVALID FOR*12/09/2010 Abdominal pain, right upper quadrant [R10.11] INVALID FOR*12/09/2010 Acute gastritis without mention of hemorrhage [*INVALID FOR*12/09/2010 More... BENIGN JOYA SKIN TRUNK [D23.5] INVALID FOR* Calcaneal spur [M77.30] INVALID FOR*12/09/2010 Plantar fascial fibromatosis [M72.2] INVALID FOR*12/09/2010 Abnormality of gait [R26.9] INVALID FOR*12/09/2010 Venous thrombosis [I82.90] INVALID FOR*08/19/2012 Lumbosacral spondylosis without myelopathy [M47*INVALID FOR*03/29/2014 Pain in limb [M79.609] INVALID FOR*03/29/2014 More... Pain in joint, shoulder region [M25.519] INVALID FOR*12/09/2010 Anxiety [F41.9] INVALID FOR* More... Kidney stone [N20.0] INVALID FOR*12/09/2010 More... Lumbago [M54.5] INVALID FOR*03/29/2014 SARA on CPAP [G47.33, Z99.89] INVALID FOR* More... Bronchitis [J40] INVALID FOR* Tobacco use disorder [F17.200] INVALID FOR* Parasomnia [G47.50] INVALID FOR* More... SARA (obstructive sleep apnea) AHI 22 [G47.33] INVALID FOR*04/30/2017 Chronic left shoulder pain [M25.512, G89.29] INVALID FOR* Memory disturbance [R41.3] INVALID FOR* Other instructions from your clinician: As a result of today's evaluation and discussion, we ordered these tests: These are our recommendations: Melatonin 5 mg at 10:00 pm. Vitamin D3 1000 units with food. After all the diagnostic procedures listed above please schedule report visit with Dr. Zavala to discuss results and develop treatment plan. You can arrange this with scheduling on the 3 ed floor, as well as tests and therapies if needed. Please call us with any questions or concerns at [phone] ( you will reach Kathi pillai clinical sales assistant displays) our or scheduling at [phone]. Here's how to keep your brain healthy: ? Focus on what you enjoy ? Maintain an active social life as much as possible ? Exercise as tolerated, preferably 30 minutes 4 times/week or 40 min. 3x/week ? Get 7-8 hrs of sleep per night with good sleep hygiene ? Maintain a predictable daily routine ? Keep a daily journal to organize thoughts, goals and accomplishments ? Try learning new hobbies or skills, even if you're not great at them ? Keep your brain active with puzzles and games you enjoy Visit Notes: >> Sharad (Rn) EDGARD Roman ThuNov 20, 2017 1:41 PM Status: Signed Rosio Ploo is a 57 year old year old man seen today for Report Visit. Accompanied by: spouse. Testing completed: MRI, NPT, labs Changes or concerns since last office visit? None Vital Signs: BP 133/69 Pulse 82 Resp 12 Ht 180.3 cm (5' 11) Wt 108.9 kg (240 lb) BMI 33.47 kg/m2 Disposition: Return in about 1 year (around 11/20/2018) for Sally or Tyrone for follow up . Follow-up and Disposition History Recorded Encounter Status:Closed by MANDI ZAVALA MD on 12/03/17 PROGRESS Observed: 11/06/2017 Status: COMPLETED Source: [place] 1:11 PM [facility] REPOSITORY O ID: [id number] Author: Rossy Su Service: (none) Author Type: Physician Type: Progress Notes Filed: 11/06/2017 1:12 PM Note Text: PATIENT NAME: Rosio Polo [facility] BRAIN [facility] NEUROPSYCHOLOGICAL EVALUATION EDUCATION: 12 OCCUPATION: [employer] HANDEDNESS: Right REFERRING: Mandi Zavala MD ? This neuropsychological assessment is part of a multidisciplinary evaluation conducted in the [facility]. The assessment consisted of a brief interview with the patient, neurobehavioral examination, and standardized neuropsychological assessment. ? RELEVANT BACKGROUND: Rosio Polo is a 57-year-old male referred for a neurocognitive evaluation in the context of memory, concentration, and language concerns. MoCA score was 21/[address] Zavala?s evaluation on 10/09/17. Brain MRI from 10/29/17 indicated mild generalized volume loss and mild nonspecific white matter disease likely reflective of chronic microvascular ischemia. Hippocampal volumes were in the 99th percentile. Mr. Polo and his report worsening cognitive problems beginning approximately 4-5 years ago. He has occasional problems with short-term memory. His notes that she has to repeat information to him and that he misplaces items. He has word-finding problems and others have told him that he tends to mumble. He occasionally substitutes words with other semantically related words but could not provide examples. He has some trouble spelling and others have to proofread his work because he omits words. He has to re-read material due to poor concentration. 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 He manages his own medications with a pillbox. He occasionally misses doses. His took over management of the finances a few years ago, as he started ignoring bills. She states that he used to be conservative with money but now makes impulsive financial decisions, such as buying a new pick-up truck without discussing with her beforehand. He has preferred not to drive over the past year, as he has difficulty concentrating and finds it tiring. He no longer drives at night. He sometimes has trouble navigating but does not endorse recent accidents or tickets. He describes problems hearing. He has particular difficulty in crowds and tends to rely on reading lips. He also cannot make out the lyrics in songs. Medical history includes type 2 diabetes (poorly controlled), obstructive sleep apnea, and hyperlipidemia. He also describes an incident 5-6 years ago where he fell from a ladder and lost consciousness but does not endorse any cognitive sequelae. He rarely drinks alcohol (3- 4 times per year) and does not endorse use of illicit substances. He has smoked a ? pack of cigarettes per day for 40 years. Sleep is variable. He is able to fall asleep but occasionally wakes up during the night and eats high calorie food, though he does not remember doing this the next morning. He describes nightmares of fighting or getting chased. His indicates that he has always yelled and thrashed in his sleep, and she sleeps in the other room due to this. He has fallen out of bed. He reported that he has been prescribed Klonopin for this in the past but never tried it. He has obstructive sleep apnea and uses a CPAP, but occasionally finds that he has pulled it off during sleep. He does not feel refreshed in the morning. Psychiatric history includes anxiety, panic attacks, and major depression with approximate onset in 2012. He is treated with Celexa and Remeron, which he finds beneficial. He and his report that he is much more laid back than in the past, possibly due to anxiety medications. However, he is more apathetic and no longer interested in activities they used to do together. Additionally, he occasionally sees the shadow of a person in his peripheral vision but does not endorse well-formed hallucinations. His notices possible cognitive fluctuations but notes that this may be due to blood sugar level. Family history of neurodegenerative disorders includes Parkinson?s disease with memory problems in his mother. His maternal grandmother also began having memory problems in her 70s. SOCIAL/ACADEMIC/OCCUPATIONAL BACKGROUND: Mr. Polo met developmental milestones. He completed 12 years of education without learning or attention problems. He typically earned A and B grades. He is the [employer] of a [employer] but has cut back on his hours over the past 1-2 years due to others noting changes in speech, difficulty spelling, and making mistakes when writing letters. His boss is aware of his difficulties and has been accommodating. For example, all of his letters are proofread by HR before being sent out. He currently lives with his and sometimes spends up to 7 hours per day watching television. BEHAVIORAL OBSERVATIONS: The patient was accompanied by his . Reading glasses were used throughout testing and hearing appeared intact. Gait was unremarkable. A very subtle action tremor was noted on his right hand. Speech was fluent without paraphasic errors during conversation. He was observed to slur his words occasionally during word finding and sentence repetition tasks, and his speech was also slow and effortful on sentence repetition. Thought process was logical and goal-oriented. He was generally able to comprehend test instructions quickly with the exception of an inhibition task. Mood appeared slightly anxious and he seemed particularly overwhelmed on a story memory test. Overall, Mr. Polo appeared to put forth consistent effort on the evaluation. This evaluation is felt to provide a valid representation of the patient?s current cognitive functioning. IMPRESSIONS: ? COGNITIVE RESULTS Performance on a test of phonetic reading generally resistant to cognitive decline is average, consistent with reported educational background. Performance on the perceptual reasoning index is borderline, with low average scores on both tasks in this category. Performance on the processing speed index is slightly variable with low average performance on a measure of timed visual form discrimination and borderline performance on a measure of timed visuomotor digit to symbol grease packer task. Attention to simple auditory information is average (6 digits forward, 4 digits in reverse, 6 digits in sequence). Speeded color naming is low average (1 error) and word reading is average (0 errors). Performance on a test of selective attention task is extremely low on the inhibition trial (0 errors) and average on the inhibition/switching trial (0 errors). Speed on a visual-motor scanning task is average (0 errors). Speed is borderline on a number sequencing task (0 errors) and low average on a letter sequencing task (1 error). The task is discontinued when mental set-shifting is additionally required, as he goes over the time limit and makes 5 errors. Performance on a measure of planning is average for achievement and low average for rule violations. A copy of a complex figure is disorganized with a piecemeal approach and without an appreciation of the figure gestalt. Judgment of line orientation is average. Performance on a measure of sentence repetition is in the borderline range. His ability to provide a written description of a pictured scene is grammatically correct with poor appreciation of the gestalt of the scene. Visual confrontation naming is low average without clear benefit from phonemic cues (3/9). Letter fluency is borderline and categorical fluency is average. Immediate recall and delayed recall (1/2 cues) of paragraph length stories are extremely low and recognition is borderline. Of note, he seemed anxious/overwhelmed by this task. He recalled some details of the story following prompting, but did not recall them as part of a cohesive story. Immediate recall of list words is extremely low but he benefits from repetition and learning is average. He retains 57% of the words he initially learns (extremely low) and delayed recall and recognition (1 false positives) are extremely low. Recognition is extremely low. Immediate recall of simple figures is borderline but he again benefits from repetition and learning is average. Delayed recall is borderline but he retains 83% of the information he originally learns (average). Recognition is borderline to low average without false positive errors. He does not endorse significant depressive symptoms (BDI-II = 10), but he endorses mild anxiety symptoms (MALA=11). On the NPI-Q, his notes presence of nighttime behaviors, mild agitation, moderate depression, apathy, and disinhibition, and severe anxiety. On the activities of daily living questionnaire, she indicates some difficulty with self-care activities (spills, slow or clumsy when dressing, less interested in personal appearance). He is also less involved in household duties and recreational activities, has mild difficulties with job responsibilities, has difficulty handling stevens, no longer manages the finances, drives more cautiously, occasionally gets disoriented in strange surroundings, and has some difficulty with speech, comprehension, reading, and writing. SUMMARY Results show inefficient processing speed and deficits in aspects of executive functioning (extremely low response inhibition and cognitive flexibility; borderline phonemic fluency, errors, and organization). Memory is variable. His encoding of verbal (words) and visual (figures) information is extremely low, but he benefits from repetition and learning is intact. His extremely low delayed recall and recognition of words is likely secondary to executive functioning deficits, as his retention of figures is intact. He is visibly anxious on memory for stories, likely contributing to poor performance on that task. Language is notable for mild dysarthria and inefficiencies in sentence repetition and naming. Basic attention, visuospatial abilities, and semantic fluency are intact. Overall, his profile is most consistent with frontal and subcortical dysfunction. These results, in addition to reports of progressive difficulties with activities of daily living, are concerning for a neurodegenerative process. The presence of REM sleep behavior disorder, possible fluctuations and Parkinsonian features, as well as his family history, raise concern for presence of Lewy Body etiology. Although uncontrolled diabetes and anxiety may contribute to cognitive difficulties, they do not fully explain them. At this time, deficient are consistent with mild cognitive impairment- multi-domain. RECCOMENDATIONS 1. Mr. Polo will likely need continued assistance with activities of daily living, such as managing his medications. It is particularly important that he receive assistance with managing his diabetes. Consultation with social work may be useful to assist his family in exploring resources for support and future planning. 2. Given Mr. Polo?s reports of driving concerns, along with evidence of impairments in executive functioning, driving is not recommended. 3. Mr. Polo may find the following sleep recommendations helpful: a. Place barriers on the side of the bed and/or padding near the bed. b. Move furniture and clutter away from the bed. c. Remove dangerous objects from the bedroom. 4. Repeat neuropsychological evaluation in 12 months may be beneficial to further assess cognitive trajectory. OVERVIEW The graph below shows performance in different areas of cognitive function. The shaded area in the middle represents average range performance for individuals of similar age. *Variable Roosevelt Xiong, Ph.D. Neuropsychology Fellow Rossy Su, Ph.D. Staff Neuropsychologist PROGRESS Observed: 10/29/2017 Status: COMPLETED Source: [place] 5:14 PM [facility] REPOSITORY HNO ID: [id number] Author: Shawn Woodard Service: (none) Author Type: (none) Type: Progress Notes Filed: 10/29/2017 5:15 PM Note Text: Radiology Service Progress Note PATIENT NAME: Rosio Polo DATE OF SERVICE: October 29, 2017 TIME: 5:15 PM PATIENT IDENTITY VERIFICATION COMPLETED USING TWO (2) METHODS: Patient confirmed name verbally and Date of . PATIENT GENDER DATA: Male PATIENT RELEVANT IMPLANT DATA REVIEWED: Not Applicable RADIOLOGY DEPARTMENT: MR; Exam(s) Completed: Head: Routine Brain Routine Brain with Perfusion PERIPHERAL IV DATA: Not applicable SIGNED BY: Shawn Woodard October 29, 2017 5:15 PM MRI 3D POST PROCESSING Observed: 10/29/2017 Status: F Source: [place] 4:42 PM [facility] REPOSITORY * * *Final Report* * * DATE OF EXAM: Oct 29 2017 4:42PM [facility] [id number] - MRI 3D POST PROCESSING / PROCEDURE REASON: multiple diagnoses * * * * Physician Interpretation * * * * EXAMINATION: MRI BRAIN WO IVCON, MRI 3D POST PROCESSING HISTORY: Memory loss, Major depressive disorder, single episode, unspecified Obstructive sleep apnea (adult) (pediatric) TECHNIQUE: Specialized brain MRI without contrast, using the ADNI dementia protocol and 3-D post-processing at an independent workstation under physician supervision using the Canpages software. M: [email or web address] COMPARISON: CT head 12/18/2015, CT brain 01/11/2010. RESULT: QUALITATIVE: Acute Intracranial Process: None. Chronic Intracranial Process: Scattered T2/FLAIR hyperintensities in the white matter which are nonspecific but most likely due to mild chronic microvascular change. Age related white matter changes ([facility]) rating: White matter lesions: 1 Basal ganglia lesions: 0 Prior parenchymal hemorrhage and location: No evidence of parenchymal microhemorrhages on SWI. Qualitative brain and hippocampal volume: There is mild cortical volume loss in view of the mild enlargement of the cortical sulci. There is mild central white matter volume loss in view of the mild enlargement of the ventricular system. There is no significant additional superimposed hippocampal volume loss given the mild degree of volume loss based on visual inspection. Ventricles: Normal in size and configuration Brain Parenchymal Signal and Morphology: The brain parenchyma is otherwise within normal limits of signal and morphology. There is no evidence of an intracranial mass or extraaxial fluid collection. Other Significant Findings: None. QUANTITATIVE: Exam Quality: Adequate for volumetric analysis. Quantitative Data: Total Hippocampal Volume: Percentile for Similar Age: 99th Asymmetry Index: -4.23 Superior Lateral Ventricular Volume: Percentile for Similar Age: 10th Asymmetry Index: 26.70 Inferior Lateral Vent Volume: Percentile for similar age: 22nd Asymmetry Index: -22.64 Total Brain Volume Percentile for Similar Age: 29th Concordance between qualitative and quantitative hippocampal volume assessment: Concordant. Change in brain volumes: No previous volumetric study for comparison Mean hippocampal volume loss among normal elderly: 0.7% per year, (-0.3 to 1.7; Ruddy 2008; also Santos 2010). IMPRESSION: * No evidence of an acute intracranial process or intracranial mass. * Mild generalized volume loss. * Hippocampal volumes at the 99th percentile when compared to age matched normal controls by quantitative analysis. * Mild white matter disease which is nonspecific but likely reflective of chronic microvascular ischemia. REFERENCES: White matter lesions 0 No lesions (including symmetrical, well-defined caps or bands) 1 Focal lesions 2 Beginning of confluence 3 Diffuse involvement of entire region Basal ganglia lesions 0 No lesions 1 1 focal lesion ( > 5 mm) 2 >1 focal lesion 3 Confluent lesions Santos Bradley, et al. The clinical use of structural MRI in Alzheimer disease. Nature Reviews Neurology 6;67 (2010). Ruddy et al. Validation of a fully automated 3D hippocampal segmentation method using subjects with Alzheimer's disease mild cognitive impairment, and elderly controls. Neuroimage 43;59 (2008). Brandon et al. A New Rating Scale for Age-Related White Matter Changes Applicable to MRI and CT. Stroke. 32:1318 (2001). * Asymmetry index defined as difference between left and right volumes divided by mean (%). Age-matched reference charts measure total hippocampal volume (% of intracranial volume). See results from the analysis charts for details. Manager Med Surg: MARILU Transcribe Date/Time: Oct 29 2017 6:42P Dictated by : MARIA GUADALUPE CM MD This examination was interpreted and the report reviewed and electronically signed by: MARIA GUADALUPE CM MD on Oct 29 2017 6:49PM EST [id number] MRI BRAIN WO IVCON Observed: 10/29/2017 Status: F Source: [place] 4:42 PM [facility] REPOSITORY * * *Final Report* * * DATE OF EXAM: Oct 29 2017 4:42PM [facility] 0294 - MRI BRAIN WO IVCON / PROCEDURE REASON: multiple diagnoses * * * * Physician Interpretation * * * * EXAMINATION: MRI BRAIN WO IVCON, MRI 3D POST PROCESSING HISTORY: Memory loss, Major depressive disorder, single episode, unspecified Obstructive sleep apnea (adult) (pediatric) TECHNIQUE: Specialized brain MRI without contrast, using the ADNI dementia protocol and 3-D post-processing at an independent workstation under physician supervision using the Canpages software. M: [email or web address] COMPARISON: CT head 12/18/2015, CT brain 01/11/2010. RESULT: QUALITATIVE: Acute Intracranial Process: None. Chronic Intracranial Process: Scattered T2/FLAIR hyperintensities in the white matter which are nonspecific but most likely due to mild chronic microvascular change. Age related white matter changes ([facility]) rating: White matter lesions: 1 Basal ganglia lesions: 0 Prior parenchymal hemorrhage and location: No evidence of parenchymal microhemorrhages on SWI. Qualitative brain and hippocampal volume: There is mild cortical volume loss in view of the mild enlargement of the cortical sulci. There is mild central white matter volume loss in view of the mild enlargement of the ventricular system. There is no significant additional superimposed hippocampal volume loss given the mild degree of volume loss based on visual inspection. Ventricles: Normal in size and configuration Brain Parenchymal Signal and Morphology: The brain parenchyma is otherwise within normal limits of signal and morphology. There is no evidence of an intracranial mass or extraaxial fluid collection. Other Significant Findings: None. QUANTITATIVE: Exam Quality: Adequate for volumetric analysis. Quantitative Data: Total Hippocampal Volume: Percentile for Similar Age: 99th Asymmetry Index: -4.23 Superior Lateral Ventricular Volume: Percentile for Similar Age: 10th Asymmetry Index: 26.70 Inferior Lateral Vent Volume: Percentile for similar age: 22nd Asymmetry Index: -22.64 Total Brain Volume Percentile for Similar Age: 29th Concordance between qualitative and quantitative hippocampal volume assessment: Concordant. Change in brain volumes: No previous volumetric study for comparison Mean hippocampal volume loss among normal elderly: 0.7% per year, (-0.3 to 1.7; Ruddy 2008; also Santos 2010). IMPRESSION: * No evidence of an acute intracranial process or intracranial mass. * Mild generalized volume loss. * Hippocampal volumes at the 99th percentile when compared to age matched normal controls by quantitative analysis. * Mild white matter disease which is nonspecific but likely reflective of chronic microvascular ischemia. REFERENCES: White matter lesions 0 No lesions (including symmetrical, well-defined caps or bands) 1 Focal lesions 2 Beginning of confluence 3 Diffuse involvement of entire region Basal ganglia lesions 0 No lesions 1 1 focal lesion ( > 5 mm) 2 >1 focal lesion 3 Confluent lesions Santos Bradley, et al. The clinical use of structural MRI in Alzheimer disease. Nature Reviews Neurology 6;67 (2010). Ruddy et al. Validation of a fully automated 3D hippocampal segmentation method using subjects with Alzheimer's disease mild cognitive impairment, and elderly controls. Neuroimage 43;59 (2008). Brandon et al. A New Rating Scale for Age-Related White Matter Changes Applicable to MRI and CT. Stroke. 32:1318 (2001). * Asymmetry index defined as difference between left and right volumes divided by mean (%). Age-matched reference charts measure total hippocampal volume (% of intracranial volume). See results from the analysis charts for details. Manager Med Surg: MARILU Transcribe Date/Time: Oct 29 2017 6:42P Dictated by : MARIA GUADALUPE CM MD This examination was interpreted and the report reviewed and electronically signed by: MARIA GUADALUPE CM MD on Oct 29 2017 6:49PM EST [id number] PROGRESS Observed: 10/29/2017 Status: COMPLETED Source: [place] 4:00 PM [facility] REPOSITORY O ID: [id number] Author: Rossy Su Service: (none) Author Type: Physician Type: Progress Notes Filed: 11/06/2017 1:12 PM Note Text: The patient was seen for a neuropsychological evaluation at the request of Dr. Zavala and was interviewed by myself and Dr. Su. Full report to follow. Roosevelt Xiong PhD Neuropsychology Postdoctoral Fellow Time testing (by sonography technician): 3 hours. Time completing additional tests, analyzing, interpreting and incorporating other available medical information, clinical data review, and report writing (by neuropsychologist): 2 hours Rossy Su PhD, Staff Neuropsychologist CANDIS Observed: 10/29/2017 Status: COMPLETED Source: [place] 12:00 PM [facility] REPOSITORY Office Visit (NEBT) ROSIO POLO ([id number]) 1960 [facility] Date Time Provider Department 10/29/17 12:00 PM ROSSY SU During your visit today, we recorded the following information about you: Rossy Su PhD 11/06/2017 1:12 PM Signed The patient was seen for a neuropsychological evaluation at the request of Dr. Zavaal and was interviewed by myself and Dr. Su. Full report to follow. Roosevelt Xiong PhD Neuropsychology Postdoctoral Fellow Time testing (by sonography technician): 3 hours. Time completing additional tests, analyzing, interpreting and incorporating other available medical information, clinical data review, and report writing (by neuropsychologist): 2 hours Rossy Su PhD, Staff Neuropsychologist Rossy Su PhD 11/06/2017 1:12 PM Signed PATIENT NAME: Rosio Polo [facility] BRAIN [facility] NEUROPSYCHOLOGICAL EVALUATION EDUCATION: 12 OCCUPATION: [employer] HANDEDNESS: Right REFERRING: Mandi Zavala MD ? This neuropsychological assessment is part of a multidisciplinary evaluation conducted in the [facility]. The assessment consisted of a brief interview with the patient, neurobehavioral examination, and standardized neuropsychological assessment. ? RELEVANT BACKGROUND: Rosio Polo is a 57-year-old male referred for a neurocognitive evaluation in the context of memory, concentration, and language concerns. MoCA score was 21/[address] Zavala?s evaluation on 10/09/17. Brain MRI from 10/29/17 indicated mild generalized volume loss and mild nonspecific white matter disease likely reflective of chronic microvascular ischemia. Hippocampal volumes were in the 99th percentile. Mr. Polo and his report worsening cognitive problems beginning approximately 4-5 years ago. He has occasional problems with short-term memory. His notes that she has to repeat information to him and that he misplaces items. He has word-finding problems and others have told him that he tends to mumble. He occasionally substitutes words with other semantically related words but could not provide examples. He has some trouble spelling and others have to proofread his work because he omits words. He has to re-read material due to poor concentration. 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 He manages his own medications with a pillbox. He occasionally misses doses. His took over management of the finances a few years ago, as he started ignoring bills. She states that he used to be conservative with money but now makes impulsive financial decisions, such as buying a new pick-up truck without discussing with her beforehand. He has preferred not to drive over the past year, as he has difficulty concentrating and finds it tiring. He no longer drives at night. He sometimes has trouble navigating but does not endorse recent accidents or tickets. He describes problems hearing. He has particular difficulty in crowds and tends to rely on reading lips. He also cannot make out the lyrics in songs. Medical history includes type 2 diabetes (poorly controlled), obstructive sleep apnea, and hyperlipidemia. He also describes an incident 5-6 years ago where he fell from a ladder and lost consciousness but does not endorse any cognitive sequelae. He rarely drinks alcohol (3-4 times per year) and does not endorse use of illicit substances. He has smoked a ? pack of cigarettes per day for 40 years. Sleep is variable. He is able to fall asleep but occasionally wakes up during the night and eats high calorie food, though he does not remember doing this the next morning. He describes nightmares of fighting or getting chased. His indicates that he has always yelled and thrashed in his sleep, and she sleeps in the other room due to this. He has fallen out of bed. He reported that he has been prescribed Klonopin for this in the past but never tried it. He has obstructive sleep apnea and uses a CPAP, but occasionally finds that he has pulled it off during sleep. He does not feel refreshed in the morning. Psychiatric history includes anxiety, panic attacks, and major depression with approximate onset in 2012. He is treated with Celexa and Remeron, which he finds beneficial. He and his report that he is much more laid back than in the past, possibly due to anxiety medications. However, he is more apathetic and no longer interested in activities they used to do together. Additionally, he occasionally sees the shadow of a person in his peripheral vision but does not endorse well-formed hallucinations. His notices possible cognitive fluctuations but notes that this may be due to blood sugar level. Family history of neurodegenerative disorders includes Parkinson?s disease with memory problems in his mother. His maternal grandmother also began having memory problems in her 70s. SOCIAL/ACADEMIC/OCCUPATIONAL BACKGROUND: Mr. Polo met developmental milestones. He completed 12 years of education without learning or attention problems. He typically earned A and B grades. He is the [employer] of a [employer] but has cut back on his hours over the past 1-2 years due to others noting changes in speech, difficulty spelling, and making mistakes when writing letters. His boss is aware of his difficulties and has been accommodating. For example, all of his letters are proofread by HR before being sent out. He currently lives with his and sometimes spends up to 7 hours per day watching television. BEHAVIORAL OBSERVATIONS: The patient was accompanied by his . Reading glasses were used throughout testing and hearing appeared intact. Gait was unremarkable. A very subtle action tremor was noted on his right hand. Speech was fluent without paraphasic errors during conversation. He was observed to slur his words occasionally during word finding and sentence repetition tasks, and his speech was also slow and effortful on sentence repetition. Thought process was logical and goal-oriented. He was generally able to comprehend test instructions quickly with the exception of an inhibition task. Mood appeared slightly anxious and he seemed particularly overwhelmed on a story memory test. Overall, Mr. Polo appeared to put forth consistent effort on the evaluation. This evaluation is felt to provide a valid representation of the patient?s current cognitive functioning. IMPRESSIONS: ? COGNITIVE RESULTS Performance on a test of phonetic reading generally resistant to cognitive decline is average, consistent with reported educational background. Performance on the perceptual reasoning index is borderline, with low average scores on both tasks in this category. Performance on the processing speed index is slightly variable with low average performance on a measure of timed visual form discrimination and borderline performance on a measure of timed visuomotor digit to symbol grease packer task. Attention to simple auditory information is average (6 digits forward, 4 digits in reverse, 6 digits in sequence). Speeded color naming is low average (1 error) and word reading is average (0 errors). Performance on a test of selective attention task is extremely low on the inhibition trial (0 errors) and average on the inhibition/switching trial (0 errors). Speed on a visual-motor scanning task is average (0 errors). Speed is borderline on a number sequencing task (0 errors) and low average on a letter sequencing task (1 error). The task is discontinued when mental set-shifting is additionally required, as he goes over the time limit and makes 5 errors. Performance on a measure of planning is average for achievement and low average for rule violations. A copy of a complex figure is disorganized with a piecemeal approach and without an appreciation of the figure gestalt. Judgment of line orientation is average. Performance on a measure of sentence repetition is in the borderline range. His ability to provide a written description of a pictured scene is grammatically correct with poor appreciation of the gestalt of the scene. Visual confrontation naming is low average without clear benefit from phonemic cues (3/9). Letter fluency is borderline and categorical fluency is average. Immediate recall and delayed recall (1/2 cues) of paragraph length stories are extremely low and recognition is borderline. Of note, he seemed anxious/overwhelmed by this task. He recalled some details of the story following prompting, but did not recall them as part of a cohesive story. Immediate recall of list words is extremely low but he benefits from repetition and learning is average. He retains 57% of the words he initially learns (extremely low) and delayed recall and recognition (1 false positives) are extremely low. Recognition is extremely low. Immediate recall of simple figures is borderline but he again benefits from repetition and learning is average. Delayed recall is borderline but he retains 83% of the information he originally learns (average). Recognition is borderline to low average without false positive errors. He does not endorse significant depressive symptoms (BDI-II = 10), but he endorses mild anxiety symptoms (MALA=11). On the NPI-Q, his notes presence of nighttime behaviors, mild agitation, moderate depression, apathy, and disinhibition, and severe anxiety. On the activities of daily living questionnaire, she indicates some difficulty with self-care activities (spills, slow or clumsy when dressing, less interested in personal appearance). He is also less involved in household duties and recreational activities, has mild difficulties with job responsibilities, has difficulty handling stevens, no longer manages the finances, drives more cautiously, occasionally gets disoriented in strange surroundings, and has some difficulty with speech, comprehension, reading, and writing. SUMMARY Results show inefficient processing speed and deficits in aspects of executive functioning (extremely low response inhibition and cognitive flexibility; borderline phonemic fluency, errors, and organization). Memory is variable. His encoding of verbal (words) and visual (figures) information is extremely low, but he benefits from repetition and learning is intact. His extremely low delayed recall and recognition of words is likely secondary to executive functioning deficits, as his retention of figures is intact. He is visibly anxious on memory for stories, likely contributing to poor performance on that task. Language is notable for mild dysarthria and inefficiencies in sentence repetition and naming. Basic attention, visuospatial abilities, and semantic fluency are intact. Overall, his profile is most consistent with frontal and subcortical dysfunction. These results, in addition to reports of progressive difficulties with activities of daily living, are concerning for a neurodegenerative process. The presence of REM sleep behavior disorder, possible fluctuations and Parkinsonian features, as well as his family history, raise concern for presence of Lewy Body etiology. Although uncontrolled diabetes and anxiety may contribute to cognitive difficulties, they do not fully explain them. At this time, deficient are consistent with mild cognitive impairment- multi-domain. RECCOMENDATIONS 1. Mr. Polo will likely need continued assistance with activities of daily living, such as managing his medications. It is particularly important that he receive assistance with managing his diabetes. Consultation with social work may be useful to assist his family in exploring resources for support and future planning. 2. Given Mr. Polo?s reports of driving concerns, along with evidence of impairments in executive functioning, driving is not recommended. 3. Mr. Polo may find the following sleep recommendations helpful: a. Place barriers on the side of the bed and/or padding near the bed. b. Move furniture and clutter away from the bed. c. Remove dangerous objects from the bedroom. 4. Repeat neuropsychological evaluation in 12 months may be beneficial to further assess cognitive trajectory. OVERVIEW The graph below shows performance in different areas of cognitive function. The shaded area in the middle represents average range performance for individuals of similar age. *Variable Roosevelt Xiong, Ph.D. Neuropsychology Fellow Rossy Su, Ph.D. Staff Neuropsychologist Referring Provider: MANDI ZAVALA [[id number]] Allergies As of Date: 10/29/2017 Noted Allergy Reaction INFLUENZA VIRUS VACCINES 11/13/2014 14 - Other: See Comments Comments: myalgias PREDNISONE 01/12/2013 2 - Rash SERTRALINE 07/11/2013 8 - GI Upset VICODIN (HYDROCODONE-ACETAMINOPHE*05/11/2013 9 - Itching Date Reviewed: 10/28/2017 Reviewed by: Kerline Burton LPN - Fully Assessed Primary Visit Diagnosis:Mild cognitive impairment [G31.84] Other Visit Diagnoses:Obstructive sleep apnea [G47.33] RBD (REM behavioral disorder) [G47.52] Prescriptions as of 10/29/2017 Sig: METFORMIN 500 MG TABLET Take 2 tablets by mouth twice* GLIMEPIRIDE 2 MG TABLET TAKE 2 TABLETS TWICE A DAY WI* INSULIN GLARGINE (U-100) 100 * Inject 30 Units subcutaneousl* CLOTRIMAZOLE-BETAMETHASONE 1 * Apply 1 application to affect* PEN NEEDLE, DIABETIC 31 GAUGE* 1 Each once daily. PRAVASTATIN 40 MG TABLET Take 1 tablet by mouth daily * LANSOPRAZOLE 30 MG CAPSULE,DE* TAKE 1 TO 2 CAPSULES DAILY SITAGLIPTIN 100 MG TABLET Take 1 tablet by mouth once d* COMPOUNDED PRESCRIPTION CPAP Replacement parts, inclu* CPAP CPAP @ 10 cm of water with hu* BLOOD SUGAR DIAGNOSTIC STRIPS Test blood sugar(s) 3 times d* CITALOPRAM 20 MG TABLET Take 1 tablet by mouth once d* MIRTAZAPINE 30 MG TABLET Take 1 tablet by mouth daily * ASPIRIN 81 MG TABLET Take one(1) tablet daily. Problem List As Of Date 10/29/2017 Noted Resolved OVERWEIGHT [E66.9] INVALID FOR* Diabetes type 2, uncontrolled (HCC) [E11.65] INVALID FOR* More... Hyperlipemia [E78.5] INVALID FOR* More... ESOPHAGEAL REFLUX [K21.9] INVALID FOR* Cervical rib [Q76.5] INVALID FOR*12/09/2010 Personal history of tobacco use, presenting haz*INVALID FOR*03/29/2014 More... Abdominal pain, generalized [R10.84] INVALID FOR*12/09/2010 Abdominal pain, right upper quadrant [R10.11] INVALID FOR*12/09/2010 Acute gastritis without mention of hemorrhage [*INVALID FOR*12/09/2010 More... BENIGN JOYA SKIN TRUNK [D23.5] INVALID FOR* Calcaneal spur [M77.30] INVALID FOR*12/09/2010 Plantar fascial fibromatosis [M72.2] INVALID FOR*12/09/2010 Abnormality of gait [R26.9] INVALID FOR*12/09/2010 Venous thrombosis [I82.90] INVALID FOR*08/19/2012 Lumbosacral spondylosis without myelopathy [M47*INVALID FOR*03/29/2014 Pain in limb [M79.609] INVALID FOR*03/29/2014 More... Pain in joint, shoulder region [M25.519] INVALID FOR*12/09/2010 Anxiety [F41.9] INVALID FOR* More... Kidney stone [N20.0] INVALID FOR*12/09/2010 More... Lumbago [M54.5] INVALID FOR*03/29/2014 SARA on CPAP [G47.33, Z99.89] INVALID FOR* More... Bronchitis [J40] INVALID FOR* Tobacco use disorder [F17.200] INVALID FOR* Parasomnia [G47.50] INVALID FOR* More... SARA (obstructive sleep apnea) AHI 22 [G47.33] INVALID FOR*04/30/2017 Chronic left shoulder pain [M25.512, G89.29] INVALID FOR* Memory disturbance [R41.3] INVALID FOR* Follow-up and Disposition History Recorded Encounter Status:Closed by ROSSY SU PHD on 11/06/17 PROGRESS Observed: 10/28/2017 Status: COMPLETED Source: [place] 2:52 PM [facility] REPOSITORY HNO ID: [id number] Author: Tadeo Gamboa Service: (none) Author Type: Physician Type: Progress Notes Filed: 10/28/2017 3:28 PM Note Text: This note was created using BiOWiSHriter. Subjective Rosio Polo is a 57 year old male here for follow up. DM was improving since he saw endocrinology last month. His fastings are still around 240. Postprandials are below 200 most days. He was still taking 26 units of basaglar and did not increase as directed. He mentioned his right foot felt cold at times. He had no noted color change or claudication. His other issues were stable. He was being evaluated for cognitive issues at [facility]. ACTIVE PROBLEM LIST OVERWEIGHT Diabetes Type 2, Uncontrolled (Hcc) Hyperlipemia Esophageal Reflux Benign Neoplasm of Skin of Trunk, Except Scrotum Anxiety Sara On Cpap Bronchitis Tobacco Use Disorder Parasomnia Chronic Left Shoulder Pain Memory Disturbance Current Outpatient Prescriptions: metFORMIN (GLUCOPHAGE) 500 mg tablet Take 2 tablets by mouth twice daily. glimepiride (AMARYL) 2 mg tablet TAKE 2 TABLETS TWICE A DAY WITH MEALS (BREAKFAST AND DINNER) insulin glargine (BASAGLAR KWIKPEN U-100 INSULIN) 100 unit/mL (3 mL) inpn Inject 30 Units subcutaneously daily at bedtime. As directed. clotrimazole-betamethasone (LOTRISONE) cream Apply 1 application to affected area twice daily as needed (rash). Insulin [place], Disposable, (PEN NEEDLES) 31 gauge x 1/4 ndle 1 Each once daily. pravastatin (PRAVACHOL) 40 mg tablet Take 1 tablet by mouth daily at bedtime. For cholesterol. lansoprazole (PREVACID) 30 mg capsule TAKE 1 TO 2 CAPSULES DAILY sitaGLIPtin (JANUVIA) 100 mg tablet Take 1 tablet by mouth once daily. COMPOUNDED PRESCRIPTION CPAP Replacement parts, including mask, straps, tubing, Diagnosis: SARA on CPAP - ICD9: 327.23, ICD10: G47.33 CPAP CPAP @ 10 cm of water with humidification. Mask (per patient preference) optional chin strap (if indicated), filters, tubing / heated tubing, heated humidity and lifetime supplies. Dx. SARA G47.33 327.23 blood sugar diagnostic (BLOOD GLUCOSE TEST) test strip Test blood sugar(s) 3 times daily. Dx: E11.65 Insulin: No. Please dispense Health Pro Easy Touch Test Strips. Code C15 citalopram (CELEXA) 20 mg tablet Take 1 tablet by mouth once daily. mirtazapine (REMERON) 30 mg tablet Take 1 tablet by mouth daily at bedtime. ASPIRIN 81 MG TAB Take one(1) tablet daily. No current facility-administered medications for this visit. Review of Systems Constitutional: Negative. Respiratory: Negative. Cardiovascular: Negative. Endocrine: Negative. Genitourinary: Negative. Objective BP 132/80 (BP Site: Right Arm, BP Position: Sitting, BP Cuff Size: Regular Adult) Pulse 64 Temp 37 ?C (98.6 ?F) (Left Tympanic) Resp 16 Wt 108.9 kg (240 lb) BMI 33.47 kg/m2 Physical Exam Constitutional: He appears well-nourished. Cardiovascular: Normal heart sounds and intact distal pulses. Pulmonary/Chest: Breath sounds normal. Musculoskeletal: He exhibits no edema or tenderness. Feet: Shoes and socks removed, No deformities, ulcers, calluses, normal distal pulses and sensitive to 10 gm monofilament Hemoglobin A1C (%) Date Value 09/14/2017 9.4 03/27/2017 8.6 Hemoglobin A1C (POCT) (%) Date Value 09/15/2017 9.8 ) Assessment and Plan ASSESSMENT/PLAN: 1. Uncontrolled type 2 diabetes mellitus without complication, with long-term current use of insulin ([facility]) - ICD9: 250.02, V58.67, ICD10: E11.65, Z79.4 (primary diagnosis) poorly controlled - Continue current medications - METFORMIN 500 MG TABLET - GLIMEPIRIDE 2 MG TABLET - INSULIN GLARGINE (U-100) 100 UNIT/ML (3 ML) SUBCUTANEOUS PEN. Instructed on self titration of insulin every week. Goal reviewed, and dose of insulin may need to go up to 50 or 60 units. Patient indicated understanding and willingness to follow recommendations. - Reviewed hypoglycemia, symptoms, and remedy. He had rare hypoglycemia and he was aware of symptoms. 2. Mixed hyperlipidemia - ICD9: 272.2, ICD10: E78.2 - good control - Continue current medication. Tadeo Gamboa MD CNOV Observed: 10/28/2017 Status: COMPLETED Source: [place] 2:20 PM [facility] REPOSITORY Office Visit (INTMWS) ROSIO POLO ([id number]) 1960 M NFR Date Time Provider Department 10/28/17 2:20 PM TADEO GAMBOA INTMWS During your visit today, we recorded the following information about you: Temperature Pulse Respiration Blood pressure 98.6 degrees 64/minute 16/minute 132/80 Weight 108.9 kg Tadeo Gamboa MD 10/28/2017 3:28 PM Signed This note was created using NoteWriter. Subjective Rosio Polo is a 57 year old male here for follow up. DM was improving since he saw endocrinology last month. His fastings are still around 240. Postprandials are below 200 most days. He was still taking 26 units of basaglar and did not increase as directed. He mentioned his right foot felt cold at times. He had no noted color change or claudication. His other issues were stable. He was being evaluated for cognitive issues at [facility]. ACTIVE PROBLEM LIST OVERWEIGHT Diabetes Type 2, Uncontrolled (Hcc) Hyperlipemia Esophageal Reflux Benign Neoplasm of Skin of Trunk, Except Scrotum Anxiety Sara On Cpap Bronchitis Tobacco Use Disorder Parasomnia Chronic Left Shoulder Pain Memory Disturbance Current Outpatient Prescriptions: metFORMIN (GLUCOPHAGE) 500 mg tablet Take 2 tablets by mouth twice daily. glimepiride (AMARYL) 2 mg tablet TAKE 2 TABLETS TWICE A DAY WITH MEALS (BREAKFAST AND DINNER) insulin glargine (BASAGLAR KWIKPEN U-100 INSULIN) 100 unit/mL (3 mL) inpn Inject 30 Units subcutaneously daily at bedtime. As directed. clotrimazole-betamethasone (LOTRISONE) cream Apply 1 application to affected area twice daily as needed (rash). Insulin [place], Disposable, (PEN NEEDLES) 31 gauge x 1/4ANDquot; ndle 1 Each once daily. pravastatin (PRAVACHOL) 40 mg tablet Take 1 tablet by mouth daily at bedtime. For cholesterol. lansoprazole (PREVACID) 30 mg capsule TAKE 1 TO 2 CAPSULES DAILY sitaGLIPtin (JANUVIA) 100 mg tablet Take 1 tablet by mouth once daily. COMPOUNDED PRESCRIPTION CPAP Replacement parts, including mask, straps, tubing, Diagnosis: SARA on CPAP - ICD9: 327.23, ICD10: G47.33 CPAP CPAP @ 10 cm of water with humidification. Mask (per patient preference) optional chin strap (if indicated), filters, tubing / heated tubing, heated humidity and lifetime supplies. Dx. SARA G47.33 327.23 blood sugar diagnostic (BLOOD GLUCOSE TEST) test strip Test blood sugar(s) 3 times daily. Dx: E11.65 Insulin: No. Please dispense Health Pro Easy Touch Test Strips. Code C15 citalopram (CELEXA) 20 mg tablet Take 1 tablet by mouth once daily. mirtazapine (REMERON) 30 mg tablet Take 1 tablet by mouth daily at bedtime. ASPIRIN 81 MG TAB Take one(1) tablet daily. No current facility-administered medications for this visit. Review of Systems Constitutional: Negative. Respiratory: Negative. Cardiovascular: Negative. Endocrine: Negative. Genitourinary: Negative. Objective BP 132/80 (BP Site: Right Arm, BP Position: Sitting, BP Cuff Size: Regular Adult) Pulse 64 Temp 37 ?C (98.6 ?F) (Left Tympanic) Resp 16 Wt 108.9 kg (240 lb) BMI 33.47 kg/m2 Physical Exam Constitutional: He appears well-nourished. Cardiovascular: Normal heart sounds and intact distal pulses. Pulmonary/Chest: Breath sounds normal. Musculoskeletal: He exhibits no edema or tenderness. Feet: Shoes and socks removed, No deformities, ulcers, calluses, normal distal pulses and sensitive to 10 gm monofilament Hemoglobin A1C (%) Date Value 09/14/2017 9.4 03/27/2017 8.6 Hemoglobin A1C (POCT) (%) Date Value 09/15/2017 9.8 ) Assessment and Plan ASSESSMENT/PLAN: 1. Uncontrolled type 2 diabetes mellitus without complication, with long-term current use of insulin (HCC) - ICD9: 250.02, V58.67, ICD10: E11.65, Z79.4 (primary diagnosis) poorly controlled - Continue current medications - METFORMIN 500 MG TABLET - GLIMEPIRIDE 2 MG TABLET - INSULIN GLARGINE (U-100) 100 UNIT/ML (3 ML) SUBCUTANEOUS PEN. Instructed on self titration of insulin every week. Goal reviewed, and dose of insulin may need to go up to 50 or 60 units. Patient indicated understanding and willingness to follow recommendations. - Reviewed hypoglycemia, symptoms, and remedy. He had rare hypoglycemia and he was aware of symptoms. 2. Mixed hyperlipidemia - ICD9: 272.2, ICD10: E78.2 - good control - Continue current medication. MD Tadeo Chester MD 10/28/2017 3:10 PM Signed Increase Basaglar insulin every week by 5 units, until your fasting glucoses are around 140, and stop there. Referring Provider: TADEO GAMBOA [[id number]] Allergies As of Date: 10/28/2017 Noted Allergy Reaction INFLUENZA VIRUS VACCINES 11/13/2014 14 - Other: See Comments Comments: myalgias PREDNISONE 01/12/2013 2 - Rash SERTRALINE 07/11/2013 8 - GI Upset VICODIN (HYDROCODONE-ACETAMINOPHE*05/11/2013 9 - Itching Date Reviewed: 10/28/2017 Reviewed by: Kerline Burton LPN - Fully Assessed Reason for Visit: F/U 6 Month [444] Primary Visit Diagnosis:Uncontrolled type 2 diabetes mellitus without complication, with long-term current use of insulin ([facility]) [E11.65, Z79.4] Other Visit Diagnosis:Mixed hyperlipidemia [E78.2] Order(s):metFORMIN (GLUCOPHAGE) 500 mg tabletTake 2 tablets by mouth twice daily.Disp: 360 tabletRfl: 3 glimepiride (AMARYL) 2 mg tabletTAKE 2 TABLETS TWICE A DAY WITH MEALS (BREAKFAST AND DINNER)Disp: 360 tabletRfl: 3 insulin glargine (BASAGLAR KWIKPEN U-100 INSULIN) 100 unit/mL (3 mL) inpnInject 30 Units subcutaneously daily at bedtime. As directed.Disp: Rfl: 3 Prescriptions as of 10/28/2017 Sig: METFORMIN 500 MG TABLET Take 2 tablets by mouth twice* GLIMEPIRIDE 2 MG TABLET TAKE 2 TABLETS TWICE A DAY WI* INSULIN GLARGINE (U-100) 100 * Inject 30 Units subcutaneousl* CLOTRIMAZOLE-BETAMETHASONE 1 * Apply 1 application to affect* PEN NEEDLE, DIABETIC 31 GAUGE* 1 Each once daily. PRAVASTATIN 40 MG TABLET Take 1 tablet by mouth daily * LANSOPRAZOLE 30 MG CAPSULE,DE* TAKE 1 TO 2 CAPSULES DAILY SITAGLIPTIN 100 MG TABLET Take 1 tablet by mouth once d* COMPOUNDED PRESCRIPTION CPAP Replacement parts, inclu* CPAP CPAP @ 10 cm of water with hu* BLOOD SUGAR DIAGNOSTIC STRIPS Test blood sugar(s) 3 times d* CITALOPRAM 20 MG TABLET Take 1 tablet by mouth once d* MIRTAZAPINE 30 MG TABLET Take 1 tablet by mouth daily * ASPIRIN 81 MG TABLET Take one(1) tablet daily. Medication notes this encounter ALBUTEROL SULFATE HFA 90 MCG/ACTUATION AEROSOL INHALER >> Kerline Burton LPN 10/28/2017 2:34 PM >> KERLINE BURTON LPN ThuOct 28, 2017 2:34 PM Not using. Problem List As Of Date 10/28/2017 Noted Resolved OVERWEIGHT [E66.9] INVALID FOR* Diabetes type 2, uncontrolled (HCC) [E11.65] INVALID FOR* More... Hyperlipemia [E78.5] INVALID FOR* More... ESOPHAGEAL REFLUX [K21.9] INVALID FOR* Cervical rib [Q76.5] INVALID FOR*12/09/2010 Personal history of tobacco use, presenting haz*INVALID FOR*03/29/2014 More... Abdominal pain, generalized [R10.84] INVALID FOR*12/09/2010 Abdominal pain, right upper quadrant [R10.11] INVALID FOR*12/09/2010 Acute gastritis without mention of hemorrhage [*INVALID FOR*12/09/2010 More... BENIGN JOYA SKIN TRUNK [D23.5] INVALID FOR* Calcaneal spur [M77.30] INVALID FOR*12/09/2010 Plantar fascial fibromatosis [M72.2] INVALID FOR*12/09/2010 Abnormality of gait [R26.9] INVALID FOR*12/09/2010 Venous thrombosis [I82.90] INVALID FOR*08/19/2012 Lumbosacral spondylosis without myelopathy [M47*INVALID FOR*03/29/2014 Pain in limb [M79.609] INVALID FOR*03/29/2014 More... Pain in joint, shoulder region [M25.519] INVALID FOR*12/09/2010 Anxiety [F41.9] INVALID FOR* More... Kidney stone [N20.0] INVALID FOR*12/09/2010 More... Lumbago [M54.5] INVALID FOR*03/29/2014 SARA on CPAP [G47.33, Z99.89] INVALID FOR* More... Bronchitis [J40] INVALID FOR* Tobacco use disorder [F17.200] INVALID FOR* Parasomnia [G47.50] INVALID FOR* More... SARA (obstructive sleep apnea) AHI 22 [G47.33] INVALID FOR*04/30/2017 Chronic left shoulder pain [M25.512, G89.29] INVALID FOR* Memory disturbance [R41.3] INVALID FOR* Other instructions from your clinician: Increase Basaglar insulin every week by 5 units, until your fasting glucoses are around 140, and stop there. Prescriptions ordered this encounter Disp Refills Start End METFORMIN 500 MG TABLET 360 * 3 10/28/2017 Class: CareMark Route: ORAL Sig: Take 2 tablets by mouth twice daily. GLIMEPIRIDE 2 MG TABLET 360 * 3 10/28/2017 Class: CareMark Sig: TAKE 2 TABLETS TWICE A DAY WITH MEALS (BREAKFAST AND DINNER) INSULIN GLARGINE (U-100) 100 UNIT/ML* 3 10/28/2017 Class: Med Update Route: SUBCUTANEOUS Sig: Inject 30 Units subcutaneously daily at bedtime. As directed. Medications Discontinued During This Encounter albuterol HFA (PROVENTIL HFA, VENTOL* 1 In* 0 08/13/2015 10/28/2017 Route: INHALATION Sig: Inhale 2 Puffs as instructed every 6 hours as needed. Disc: Reason for discontinue is not on file. metFORMIN (GLUCOPHAGE) 500 mg tablet 360 * 3 12/05/2016 10/28/2017 Route: ORAL Sig: Take 2 tablets by mouth twice daily. Disc: Reason for discontinue is not on file. glimepiride (AMARYL) 2 mg tablet 360 * 3 12/08/2016 10/28/2017 Sig: TAKE 2 TABLETS TWICE A DAY WITH MEALS (BREAKFAST AND DINNER) Disc: Reason for discontinue is not on file. insulin glargine (BASAGLAR MARIBETH) * 10 P* 3 09/16/2017 10/28/2017 Class: CareMark Sig: TWENTY FIVE (25) units at bedtime. Disc: Reason for discontinue is not on file. Disposition: Return in about 4 months (around 02/27/2018). Follow-up and Disposition History Recorded Encounter Status:Closed by TADEO GAMBOA MD on 10/28/17 TSH Collected: 10/09/2017 Status: F Source: [place] 2:20 PM [facility] REPOSITORY TYPE CODE TESTS RESULT OUT OF RANGE REFERENCE UNITS LAB TSH 0.400-5.500 uU/mL TSH 1.020 Performed By: #### TSH, B12, VITD #### [facility] [address] [address] VITAMIN B12 Collected: 10/09/2017 Status: F Source: [place] 2:20 PM [facility] REPOSITORY TYPE CODE TESTS RESULT OUT OF REFERENCE UNITS RANGE LAB B12 232-1245 pg/mL Vitamin B12 744 Performed By: #### TSH, B12, VITD #### [facility] [address] [place] [address] VITAMIN D 25 HYDROXY Collected: 10/09/2017 Status: F Source: [place] 2:20 PM [facility] REPOSITORY TYPE CODE TESTS RESULT OUT OF REFERENCE UNITS RANGE LAB VITD 31.0-80.0 ng/mL Low Vitamin D 25 20.8 Hydroxy Result Comment: Classification of 25 OH Vitamin D status: Insufficiency/Moderate Deficiency: < or = 30 ng/mL Sufficiency/Optimal Levels: 31 to 80 ng/mL Toxicity: > 100 ng/mL Test performed by chemiluminescent immunoassay. Performed By: #### TSH, B12, VITD #### [facility] [address] [id number] PROGRESS Observed: 10/09/2017 Status: COMPLETED Source: [place] 12:48 PM [facility] REPOSITORY HNO ID: [id number] Author: Mandi Zavala Service: (none) Author Type: Physician Type: Progress Notes Filed: 10/13/2017 9:56 AM Note Text: Rosio Polo 1960 [address] [facility] [address] October 09, 2017 Time: 12:49 PM EVALUATION NOTE Referral Source: Tadeo Gamboa MD [address] [place] [address] Accompanied by: spouse HISTORY OF PRESENT ILLNESS: Rosio Polo is a 57 year old year old right handed man referred to [facility] further evaluation and treatment. Available records (physician notes, laboratory reports, and radiology reports) were reviewed and summarized. ON EVALUATION TODAY: the Patient is alert, oriented to person place and time and able to communicate effectively. Mobility is within normal limits with some postural instability. Hearing is grossly intact to finger rub. Auditory verbal comprehension was intact. Spontaneous speech was fluent and well articulated, without paraphasic errors The patient had a good vocabulary with some word-finding problem. The patient had no difficulty following task instructions. Patient notes difficulty with concentration and comprehension (reads something but can't understand it), word finding difficulty, short term memory difficulty, needs to have things proof read because of leaving words out. Family notice mumbled speech. Per report today this spouse notes repeating questions, Some changes in finances, used to be very frugal, has been spending more now ATV's, truck, camper, etc. Had an issue with anxiety and depression about 5 years ago requiring hospitalization, passing out, dry heaving. Patient is diabetic and doesn't keep up with recommended regimen of diabetic care. ? A couple of years ago went through an severe episode of major depressive disorder and anxiety. Struggled with panic attacks. Symptoms alleviated by antidepressants. ?? Family History of Dementia: maternal grandmother had issue with memory starting in her mid 70's (AD) and mother has AD/PD memory issues starting in late 60's (preceded by PD movement issues). ? Symptoms:?Onset and Progression: Concerned for changes over the past 5 years ? Living Situation: with Spouse, two story home Falls: none ? Sleep: vivid dreams, talks and acts out in sleep. ? Purpose of Visit: would like to understand what is causing changes in memory. Medications, diabetes, or something else underlying? ? PATIENT'S MEDICAL HISTORY NOTABLE OF: PAST MEDICAL HISTORY Diagnosis Date - Acute gastritis without mention of hemorrhage - Benign neoplasm of colon - Esophageal reflux - HYPERLIPIDEMIA NEC/NOS 07/08/2005 - Kidney stone 04/23/2010 - Lumbago 03/10/2011 - Lumbosacral spondylosis without myelopathy 03/11/2010 - Obesity, unspecified - Obstructive sleep apnea (adult) (pediatric) 05/22/2011 - SARA on CPAP 05/22/2011 Dr. Salinas. CPAP used. 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 - Type II or unspecified type diabetes mellitus without mention of complication, not stated as uncontrolled - Venous thrombosis 10/08/2009 Postoperative post plantar fasaciaa release PRIOR WORK_UP: none available HISTORY OF HEAD TRAUMA: negative HISTORY OF FALLS: none ADLs-Activities of Daily Living Scale: Independent in ADL?s like: Bathing, Dressing, Feeding, Transferring, Toileting IADLs-Instrumental Activities of Daily Living-lack of engagement Driving: Some confusion while driving Finances: has taken over finances because the Patient doesn't want to engage anymore Medication Management: self, some missed doses occasionally SOCIAL HISTORY: Education: 12 -HS 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[employer] Living with the family: Social History Marital status: Spouse name: Years of education: Number of children: 2 Occupational History 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 * [employer] Social History Main Topics Smoking status: Current Every Day Smoker Packs/day: 1.50 Years: 38.00 Types: Cigarettes Smokeless status: Never Used Alcohol use: Yes Comment: rarely- once every 2-3 months Drug use: No Social History reviewed by Mandi Zavala MD [place] Cognitive Exam: Patient lost points on: Visuospatial/Executive: Naming: Registration on trial# and trail #2 Attention - digit span /2 Attention - tapping to letter A: Attention - serial sevens: 08/12 Repetition: Verbal fluency 08/10: 6phonetic 17 semantic Abstraction: 09/11 Delayed recall: corrected to 08/14 with semantic cues and 08/14 with MC cues Orientation: VITAL SIGNS: BP 150/82 Pulse 78 Resp 12 Ht 180.3 cm (5' 11) Wt 108.9 kg (240 lb) BMI 33.47 kg/m2 ALLERGIES: ALLERGIES Allergen Reactions - Influenza Virus Vac* Other: See Comments myalgias - Prednisone Rash - Sertraline GI Upset - Vicodin [Hydrocodon* Itching MEDICATIONS: Current Outpatient Prescriptions on File Prior to Visit: insulin glargine (BASAGLAR KWIKPEN) 100 unit/mL (3 mL) inpn TWENTY FIVE (25) units at bedtime. pravastatin (PRAVACHOL) 40 mg tablet Take 1 tablet by mouth daily at bedtime. For cholesterol. lansoprazole (PREVACID) 30 mg capsule TAKE 1 TO 2 CAPSULES DAILY clotrimazole-betamethasone (LOTRISONE) cream Apply 1 application to affected area twice daily as needed (rash). Insulin [place], Disposable, (PEN NEEDLES) 31 gauge x 1/4 ndle 1 Each once daily. sitaGLIPtin (JANUVIA) 100 mg tablet Take 1 tablet by mouth once daily. glimepiride (AMARYL) 2 mg tablet TAKE 2 TABLETS TWICE A DAY WITH MEALS (BREAKFAST AND DINNER) metFORMIN (GLUCOPHAGE) 500 mg tablet Take 2 tablets by mouth twice daily. COMPOUNDED PRESCRIPTION CPAP Replacement parts, including mask, straps, tubing, Diagnosis: SARA on CPAP - ICD9: 327.23, ICD10: G47.33 CPAP CPAP @ 10 cm of water with humidification. Mask (per patient preference) optional chin strap (if indicated), filters, tubing / heated tubing, heated humidity and lifetime supplies. Dx. SARA G47.33 327.23 blood sugar diagnostic (BLOOD GLUCOSE TEST) test strip Test blood sugar(s) 3 times daily. Dx: E11.65 Insulin: No. Please dispense Health Pro Easy Touch Test Strips. Code C15 citalopram (CELEXA) 20 mg tablet Take 1 tablet by mouth once daily. mirtazapine (REMERON) 30 mg tablet Take 1 tablet by mouth daily at bedtime. ASPIRIN 81 MG TAB Take one(1) tablet daily. albuterol HFA (PROVENTIL HFA, VENTOLIN HFA) 90 mcg/actuation inhaler Inhale 2 Puffs as instructed every 6 hours as needed. No current facility-administered medications on file prior to visit. Review of Systems Constitutional (difficulty staying asleep, vivid dreams, talks and acts out in sleep, CPAP for SARA, difficulty keeping it on) Positive for Fatigue Negative for Weight Gain and Weight Loss Eyes Negative for Change in vison not corrected by glasses and Vision loss or change Hent (occasionally mumbles words) Positive for Recent change in speech or voice Negative for Hearing Loss and Difficulty Swallowing Cardiovascular Negative for Chest Pain and Lightheadedness Respiratory Positive for Snoring Negative for SOB at rest, SOB with exertion, Cough and Wheezing GI Negative for Abdominal Pain, Diarrhea, Constipation and Nausea/Vomiting Negative for Urgency and Incontinence Endocrine Negative for Excessive Thirst Musculoskeletal Negative for Back Pain and Stiff Joints Integumentary (rash under arms using lotrisone) Positive for Rashes and Itching Heme/Lymph Negative for Prolonged Bleeding and Easy Bruising Allergy/Immunologic Negative for Nasal Congestion Neurologic Positive for Memory Problems Negative for Headache Psychiatric Positive for Depression and Anxiety Negative for Stress or Conflicts, Irritability, Hallucinations and Delusions Patient's Review of Systems has been reviewed with the patient and updated as appropriate. MSE: Orientation: alert and oriented as mentioned above Appearance: appropriate grooming Eye contact: maintains eye contact appropriately Facial expression: neutral Psychomotor: normal Speech/Language: unremarkable -can name, repeat with no dysarthria Mood: differs sometimes Affect: restricted Thought Process: circumstantial Thought Content: denies suicidal thoughts or ideations, no plan for suicide. Similarly no homicidal thoughts or ideations neither plan. Denies delusions and no overt evidence of delusional process. Perception: denies perception distortion and no evidence of such. Judgment: and Insight: limited Cognitive assessment as above. PSYCHIATRIC REVIEW OF SYSTEM: Negative for: Dee/Hypomania Psychosis OCD PTSD Positive for: depression and anxiety PAST PSYCHIATRIC HISTORY: Prior Diagnosis: none Prior Provider: no prior psychiatrist Therapist: no prior provider Current Slab Lifting Supervisor: none Last Hospitalization: denies hospitalization. ECT/Other Somatic Treatments: none RISK ASSESSMENT Risk factors Recent deterioration of health. Chronic illness. MDD Protective factors: No substance abuse. No suicidal ideations neither plan No h/o aggression No h/o of suicidal attempts. Good support system. Imminent risk for suicide low. Risk for harm to the others low NEUROLOGICAL EXAM: Cranial Nerves CNII: visual burch full to confrontation CNIII, IV, : pupils equal, round and reactive to light, full extraocular movements without nystagmus CN V: Facial sensation intact to fine touch bilateral CN VII: Facial muscles symmetric and strong CN VIII: Finger rub as above CN IX: Gag Reflex Intact CN X: Palate elevates symmetrically CN XI: Full strength shoulder shrug bilateral CN XII: Tongue protrusion full and midline Neck is supple, full range of motion, no pain to extension or flexion or [id number] movement. Skin over the neck is intact. Posture and Gait: Rise from chair with arms folded: good Slight postural instability Gait with good arm swing, stride and turn Foot stomp is normal Motor Exam: Tone is normal throughout, normal bulk, no muscle atrophy, Strength 5/5 throughout, no drift in upper and lower extremities. Upper extremity rigidity: slight bilateral with activation only No bradykinesia, abnormal movements Arm roll is normal bilaterally Pronator drift: negative Finger fine motor: tap w/ thumb and flex./ext. 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 Diabetes mellitus type II poorly controlled (currently on insulins) Depression unspecified in partial remission on medication. Minor Neurocognitive Impairment . Family history contributory AD/PD maternal side mother and grandmother. MOCA 2130 with predominantly amnestic pattern/executive dysfunction pattern. Neurological examination nonfocal with some difficulties with Luria test. Slow speed of processing and multiple cardiovascular events as well as diabetes with severe polyneuropathy suggest vascular more than neurodegenerative character of cognitive dysfunction.Obstructive sleep apnea on CPAP. Symptoms of RSD for further evaluation. RECOMMENDATIONS: -Blood work as per order set. -MRI with volumetric analysis as per request. -Neuropsychological evaluation as per order. -We discussed the possibility of CSF analysis with biomarkers study. -Biobanking as well as participation in clinical trials to be discussed. -Maintain physically, socially and cognitively healthy lifestyle. -Report visit with the senior writer of this report after diagnostic procedures listed above. ADDITIONALLY: The meaning of proposed diagnosis discussed and explained in details The mechanisms of actions of medications discussed . Patient aware of potential side effects We will coordinate-Patient's care with primary providers The need for follow-ups underlined. I stressed the importance of mental and physical activity in preserving brain health. Details of the plan and instructions discussed. I spent a total of 80 minutes with the patient, over half of which was spent in counseling and coordination of care as indicated above. Patient expressed and understanding of the details and are willing to follow all the recommendations. All the questions answered and concerns addressed. Mandi Zavala MD Geriatric Psychiatry [facility] Neurological [place] [facility] CNOV Observed: 10/09/2017 Status: COMPLETED Source: [place] 12:10 PM [facility] REPOSITORY Office Visit ([facility]) ROSIO POLO ([id number]) 1960 M NFR Date Time Provider Department 10/09/17 12:10 PM MANDI ZAVALA During your visit today, we recorded the following information about you: Pulse Respiration Blood pressure Weight 78/minute 12/minute 150/82 108.9 kg Height 1.803 m Sharad Roman, RN, RN 10/09/2017 1:09 PM Addendum Rosio Polo is a 57 year old year old right handed man seen today for memory concerns, cognitive change Accompanied by: spouse. 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[employer] Diabetes, SARA (CPAP), hyperlipidemia Family History of Dementia: maternal grandmother had issue with memory starting in her mid 70's (AD) and mother has AD/PD memory issues starting in late 60's (preceded by PD movement issues) Symptoms: Patient notes difficulty with concentration and comprehension (reads something but can't understand it), word finding difficulty, short term memory difficulty, needs to have things proof read because of leaving words out Spouse notes repeating questions, Some changes in finances, used to be very frugal, has been spending more now [employer], truck, camper, etc. Had an issue with anxiety and depression about 5 years ago requiring hospitalization, passing out, dry heaving Onset and Progression: Concerned for changes over the past 5 years Living Situation: With Spouse, two story home ADL's: Independent Driving: Some confusion while driving Finances: has taken over finances because payment made mistakes in bills Medication Management: self, some missed doses occasionally Falls: none Sleep: vivid dreams, talks and acts out in sleep. Purpose of Visit: would like to understand what is causing changes in memory. Medications, diabetes, or something else underlying? If at any point you qualify to participate in research would you like to be contacted by one of our research coordinators? Yes Vital Signs: BP 150/82 Pulse 78 Resp 12 Ht 180.3 cm (5' 11ANDquot;) Wt 108.9 kg (240 lb) BMI 33.47 kg/m2 Mandi Zavala MD 10/13/2017 9:56 AM Signed Rosio Polo 1960 [address] [facility] [address] October 09, 2017 Time: 12:49 PM EVALUATION NOTE Referral Source: Tadeo Gamboa MD [address] [facility] [address] Accompanied by: spouse HISTORY OF PRESENT ILLNESS: Rosio Polo is a 57 year old year old right handed man referred to [facility] further evaluation and treatment. Available records (physician notes, laboratory reports, and radiology reports) were reviewed and summarized. ON EVALUATION TODAY: the Patient is alert, oriented to person place and time and able to communicate effectively. Mobility is within normal limits with some postural instability. Hearing is grossly intact to finger rub. Auditory verbal comprehension was intact. Spontaneous speech was fluent and well articulated, without paraphasic errors The patient had a good vocabulary with some word-finding problem. The patient had no difficulty following task instructions. Patient notes difficulty with concentration and comprehension (reads something but can't understand it), word finding difficulty, short term memory difficulty, needs to have things proof read because of leaving words out. Family notice mumbled speech. Per report today this spouse notes repeating questions, Some changes in finances, used to be very frugal, has been spending more now ATV's, truck, camper, etc. Had an issue with anxiety and depression about 5 years ago requiring hospitalization, passing out, dry heaving. Patient is diabetic and doesn't keep up with recommended regimen of diabetic care. ? A couple of years ago went through an severe episode of major depressive disorder and anxiety. Struggled with panic attacks. Symptoms alleviated by antidepressants. ?? Family History of Dementia: maternal grandmother had issue with memory starting in her mid 70's (AD) and mother has AD/PD memory issues starting in late 60's (preceded by PD movement issues). ? Symptoms:?Onset and Progression: Concerned for changes over the past 5 years ? Living Situation: with Spouse, two story home Falls: none ? Sleep: vivid dreams, talks and acts out in sleep. ? Purpose of Visit: would like to understand what is causing changes in memory. Medications, diabetes, or something else underlying? ? PATIENT'S MEDICAL HISTORY NOTABLE OF: PAST MEDICAL HISTORY Diagnosis Date - Acute gastritis without mention of hemorrhage - Benign neoplasm of colon - Esophageal reflux - HYPERLIPIDEMIA NEC/NOS 07/08/2005 - Kidney stone 04/23/2010 - Lumbago 03/10/2011 - Lumbosacral spondylosis without myelopathy 03/11/2010 - Obesity, unspecified - Obstructive sleep apnea (adult) (pediatric) 05/22/2011 - SARA on CPAP 05/22/2011 Dr. Salinas. CPAP used. 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 - Type II or unspecified type diabetes mellitus without mention of complication, not stated as uncontrolled - Venous thrombosis 10/08/2009 Postoperative post plantar fasaciaa release PRIOR WORK_UP: none available HISTORY OF HEAD TRAUMA: negative HISTORY OF FALLS: none ADLs-Activities of Daily Living Scale: Independent in ADL?s like: Bathing, Dressing, Feeding, Transferring, Toileting IADLs-Instrumental Activities of Daily LivingANDquot;-lack of engagement Driving: Some confusion while driving Finances: has taken over finances because the Patient doesn't want to engage anymore Medication Management: self, some missed doses occasionally SOCIAL HISTORY: Education: 12 -HS 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[employer] Living with the family: Social History Marital status: Spouse name: Years of education: Number of children: 2 Occupational History 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[employer] Social History Main Topics Smoking status: Current Every Day Smoker Packs/day: 1.50 Years: 38.00 Types: Cigarettes Smokeless status: Never Used Alcohol use: Yes Comment: rarely- once every 2-3 months Drug use: No Social History reviewed by Mandi Zavala MD [place] Cognitive Exam: Patient lost points on: Visuospatial/Executive: Naming: Registration on trial# and trail # Attention - digit span /2 Attention - tapping to letter A: Attention - serial sevens: 08/12 Repetition: Verbal fluency 08/10: 6phonetic 17 semantic Abstraction: 09/11 Delayed recall: corrected to 08/14 with semantic cues and 08/14 with MC cues Orientation: VITAL SIGNS: BP 150/82 Pulse 78 Resp 12 Ht 180.3 cm (5' 11ANDquot;) Wt 108.9 kg (240 lb) BMI 33.47 kg/m2 ALLERGIES: ALLERGIES Allergen Reactions - Influenza Virus Vac* Other: See Comments myalgias - Prednisone Rash - Sertraline GI Upset - Vicodin [Hydrocodon* Itching MEDICATIONS: Current Outpatient Prescriptions on File Prior to Visit: insulin glargine (BASAGLAR KWIKPEN) 100 unit/mL (3 mL) inpn TWENTY FIVE (25) units at bedtime. pravastatin (PRAVACHOL) 40 mg tablet Take 1 tablet by mouth daily at bedtime. For cholesterol. lansoprazole (PREVACID) 30 mg capsule TAKE 1 TO 2 CAPSULES DAILY clotrimazole-betamethasone (LOTRISONE) cream Apply 1 application to affected area twice daily as needed (rash). Insulin [place], Disposable, (PEN NEEDLES) 31 gauge x 1/4ANDquot; ndle 1 Each once daily. sitaGLIPtin (JANUVIA) 100 mg tablet Take 1 tablet by mouth once daily. glimepiride (AMARYL) 2 mg tablet TAKE 2 TABLETS TWICE A DAY WITH MEALS (BREAKFAST AND DINNER) metFORMIN (GLUCOPHAGE) 500 mg tablet Take 2 tablets by mouth twice daily. COMPOUNDED PRESCRIPTION CPAP Replacement parts, including mask, straps, tubing, Diagnosis: SARA on CPAP - ICD9: 327.23, ICD10: G47.33 CPAP CPAP @ 10 cm of water with humidification. Mask (per patient preference) optional chin strap (if indicated), filters, tubing / heated tubing, heated humidity and lifetime supplies. Dx. SARA G47.33 327.23 blood sugar diagnostic (BLOOD GLUCOSE TEST) test strip Test blood sugar(s) 3 times daily. Dx: E11.65 Insulin: No. Please dispense Health Pro Easy Touch Test Strips. Code C15 citalopram (CELEXA) 20 mg tablet Take 1 tablet by mouth once daily. mirtazapine (REMERON) 30 mg tablet Take 1 tablet by mouth daily at bedtime. ASPIRIN 81 MG TAB Take one(1) tablet daily. albuterol HFA (PROVENTIL HFA, VENTOLIN HFA) 90 mcg/actuation inhaler Inhale 2 Puffs as instructed every 6 hours as needed. No current facility-administered medications on file prior to visit. Review of Systems Constitutional (difficulty staying asleep, vivid dreams, talks and acts out in sleep, CPAP for SARA, difficulty keeping it on) Positive for Fatigue Negative for Weight Gain and Weight Loss Eyes Negative for Change in vison not corrected by glasses and Vision loss or change Hent (occasionally mumbles words) Positive for Recent change in speech or voice Negative for Hearing Loss and Difficulty Swallowing Cardiovascular Negative for Chest Pain and Lightheadedness Respiratory Positive for Snoring Negative for SOB at rest, SOB with exertion, Cough and Wheezing GI Negative for Abdominal Pain, Diarrhea, Constipation and Nausea/Vomiting Negative for Urgency and Incontinence Endocrine Negative for Excessive Thirst Musculoskeletal Negative for Back Pain and Stiff Joints Integumentary (rash under arms using lotrisone) Positive for Rashes and Itching Heme/Lymph Negative for Prolonged Bleeding and Easy Bruising Allergy/Immunologic Negative for Nasal Congestion Neurologic Positive for Memory Problems Negative for Headache Psychiatric Positive for Depression and Anxiety Negative for Stress or Conflicts, Irritability, Hallucinations and Delusions Patient's Review of Systems has been reviewed with the patient and updated as appropriate. MSE: Orientation: alert and oriented as mentioned above Appearance: appropriate grooming Eye contact: maintains eye contact appropriately Facial expression: neutral Psychomotor: normal Speech/Language: unremarkable -can name, repeat with no dysarthria Mood: ANDquot;differs sometimesANDquot; Affect: restricted Thought Process: circumstantial Thought Content: denies suicidal thoughts or ideations, no plan for suicide. Similarly no homicidal thoughts or ideations neither plan. Denies delusions and no overt evidence of delusional process. Perception: denies perception distortion and no evidence of such. Judgment: and Insight: limited Cognitive assessment as above. PSYCHIATRIC REVIEW OF SYSTEM: Negative for: Dee/Hypomania Psychosis OCD PTSD Positive for: depression and anxiety PAST PSYCHIATRIC HISTORY: Prior Diagnosis: none Prior Provider: no prior psychiatrist Therapist: no prior provider Current Slab Lifting Supervisor: none Last Hospitalization: denies hospitalization. ECT/Other Somatic Treatments: none RISK ASSESSMENT Risk factors Recent deterioration of health. Chronic illness. MDD Protective factors: No substance abuse. No suicidal ideations neither plan No h/o aggression No h/o of suicidal attempts. Good support system. Imminent risk for suicide low. Risk for harm to the others low NEUROLOGICAL EXAM: Cranial Nerves CNII: visual burch full to confrontation CNIII, IV, : pupils equal, round and reactive to light, full extraocular movements without nystagmus CN V: Facial sensation intact to fine touch bilateral CN VII: Facial muscles symmetric and strong CN VIII: Finger rub as above CN IX: Gag Reflex Intact CN X: Palate elevates symmetrically CN XI: Full strength shoulder shrug bilateral CN XII: Tongue protrusion full and midline Neck is supple, full range of motion, no pain to extension or flexion or [id number] movement. Skin over the neck is intact. Posture and Gait: Rise from chair with arms folded: good Slight postural instability Gait with good arm swing, stride and turn Foot stomp is normal Motor Exam: Tone is normal throughout, normal bulk, no muscle atrophy, Strength 5/5 throughout, no drift in upper and lower extremities. Upper extremity rigidity: slight bilateral with activation only No bradykinesia, abnormal movements Arm roll is normal bilaterally Pronator drift: negative Finger fine motor: tap w/ thumb and flex./ext. 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 Diabetes mellitus type II poorly controlled (currently on insulins) Depression unspecified in partial remission on medication. Minor Neurocognitive Impairment . Family history contributory AD/PD maternal side mother and grandmother. 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 Neurological examination nonfocal with some difficulties with Luria test. Slow speed of processing and multiple cardiovascular events as well as diabetes with severe polyneuropathy suggest vascular more than neurodegenerative character of cognitive dysfunction.Obstructive sleep apnea on CPAP. Symptoms of RSD for further evaluation. RECOMMENDATIONS: -Blood work as per order set. -MRI with volumetric analysis as per request. -Neuropsychological evaluation as per order. -We discussed the possibility of CSF analysis with biomarkers study. -Biobanking as well as participation in clinical trials to be discussed. -Maintain physically, socially and cognitively healthy lifestyle. -Report visit with the senior writer of this report after diagnostic procedures listed above. ADDITIONALLY: The meaning of proposed diagnosis discussed and explained in details The mechanisms of actions of medications discussed . Patient aware of potential side effects We will coordinate-Patient's care with primary providers The need for follow-ups underlined. I stressed the importance of mental and physical activity in preserving brain health. Details of the plan and instructions discussed. I spent a total of 80 minutes with the patient, over half of which was spent in counseling and coordination of care as indicated above. Patient expressed and understanding of the details and are willing to follow all the recommendations. All the questions answered and concerns addressed. Mandi Zavala MD Geriatric Psychiatry [facility] Neurological [facility] Mandi Zavala MD 10/09/2017 1:57 PM Signed As a result of today's evaluation and discussion, we ordered these tests: -Blood tests to rule out reversible causes of memory problems. These include vitamins, thyroid hormones and others which are routine (like the syphilis test). -An MRI to look at changes in the brain related to aging, stroke and in the area related to memory. This takes about 30 minutes. Please try to have it done at one of our facilities if possible because they can measure the size of parts of the brain related to memory. -Neuropsychological testing to get a more detailed picture of your thinking and memory. It takes 2-3 hours and preferably should be done with our staff here. These are our recommendations: After all the diagnostic procedures listed above please schedule report visit with Dr. Zavala to discuss results and develop treatment plan. You can arrange this with scheduling on the 3 ed floor, as well as tests and therapies if needed. Please call us with any questions or concerns at [phone] ( you will reach [employer] clinical sales assistant displays) our or scheduling at [phone]. Here's how to keep your brain healthy: ? Focus on what you enjoy ? Maintain an active social life as much as possible ? Exercise as tolerated, preferably 30 minutes 4 times/week or 40 min. 3x/week ? Get 7-8 hrs of sleep per night with good sleep hygiene ? Maintain a predictable daily routine ? Keep a daily journal to organize thoughts, goals and accomplishments ? Try learning new hobbies or skills, even if you're not great at them ? Keep your brain active with puzzles and games you enjoy Referring Provider: TADEO GAMBOA [[id number]] Allergies As of Date: 10/09/2017 Noted Allergy Reaction INFLUENZA VIRUS VACCINES 11/13/2014 14 - Other: See Comments Comments: myalgias PREDNISONE 01/12/2013 2 - Rash SERTRALINE 07/11/2013 8 - GI Upset VICODIN (HYDROCODONE-ACETAMINOPHE*05/11/2013 9 - Itching Date Reviewed: 10/09/2017 Reviewed by: Sharad (Rn) EDGARD Roman - Fully Assessed Reason for Visit: Consult [173] Visit Diagnoses:Depression, unspecified depression type [F32.9] Obstructive sleep apnea [G47.33] Order(s):MRI BRAIN WO IVCON [6596053] Order #: [id number] FUTURE NEUROPSYCH TEST [0865573] Order #: [id number]: 1 TSH BLD [SQTSH] Order #: [id number] FUTURE VITAMIN B12 BLOOD [SQB12] Order #: [id number] FUTURE VITAMIN D 25 HYDROXY [SQVITD] Order #: [id number] FUTURE Prescriptions as of 10/09/2017 Sig: INSULIN GLARGINE (U-100) 100 * TWENTY FIVE (25) units at bed* PRAVASTATIN 40 MG TABLET Take 1 tablet by mouth daily * LANSOPRAZOLE 30 MG CAPSULE,DE* TAKE 1 TO 2 CAPSULES DAILY CLOTRIMAZOLE-BETAMETHASONE 1 * Apply 1 application to affect* PEN NEEDLE, DIABETIC 31 GAUGE* 1 Each once daily. SITAGLIPTIN 100 MG TABLET Take 1 tablet by mouth once d* GLIMEPIRIDE 2 MG TABLET TAKE 2 TABLETS TWICE A DAY WI* METFORMIN 500 MG TABLET Take 2 tablets by mouth twice* COMPOUNDED PRESCRIPTION CPAP Replacement parts, inclu* CPAP CPAP @ 10 cm of water with hu* BLOOD SUGAR DIAGNOSTIC STRIPS Test blood sugar(s) 3 times d* CITALOPRAM 20 MG TABLET Take 1 tablet by mouth once d* MIRTAZAPINE 30 MG TABLET Take 1 tablet by mouth daily * ASPIRIN 81 MG TABLET Take one(1) tablet daily. ALBUTEROL SULFATE HFA 90 MCG/* Inhale 2 Puffs as instructed * Problem List As Of Date 10/09/2017 Noted Resolved OVERWEIGHT [E66.9] INVALID FOR* Diabetes type 2, uncontrolled (HCC) [E11.65] INVALID FOR* More... Hyperlipemia [E78.5] INVALID FOR* More... ESOPHAGEAL REFLUX [K21.9] INVALID FOR* Cervical rib [Q76.5] INVALID FOR*12/09/2010 Personal history of tobacco use, presenting haz*INVALID FOR*03/29/2014 More... Abdominal pain, generalized [R10.84] INVALID FOR*12/09/2010 Abdominal pain, right upper quadrant [R10.11] INVALID FOR*12/09/2010 Acute gastritis without mention of hemorrhage [*INVALID FOR*12/09/2010 More... BENIGN JOYA SKIN TRUNK [D23.5] INVALID FOR* Calcaneal spur [M77.30] INVALID FOR*12/09/2010 Plantar fascial fibromatosis [M72.2] INVALID FOR*12/09/2010 Abnormality of gait [R26.9] INVALID FOR*12/09/2010 Venous thrombosis [I82.90] INVALID FOR*08/19/2012 Lumbosacral spondylosis without myelopathy [M47*INVALID FOR*03/29/2014 Pain in limb [M79.609] INVALID FOR*03/29/2014 More... Pain in joint, shoulder region [M25.519] INVALID FOR*12/09/2010 Anxiety [F41.9] INVALID FOR* More... Kidney stone [N20.0] INVALID FOR*12/09/2010 More... Lumbago [M54.5] INVALID FOR*03/29/2014 SARA on CPAP [G47.33, Z99.89] INVALID FOR* More... Bronchitis [J40] INVALID FOR* Tobacco use disorder [F17.200] INVALID FOR* Parasomnia [G47.50] INVALID FOR* More... SARA (obstructive sleep apnea) AHI 22 [G47.33] INVALID FOR*04/30/2017 Chronic left shoulder pain [M25.512, G89.29] INVALID FOR* Memory disturbance [R41.3] INVALID FOR* Other instructions from your clinician: As a result of today's evaluation and discussion, we ordered these tests: -Blood tests to rule out reversible causes of memory problems. These include vitamins, thyroid hormones and others which are routine (like the syphilis test). -An MRI to look at changes in the brain related to aging, stroke and in the area related to memory. This takes about 30 minutes. Please try to have it done at one of our facilities if possible because they can measure the size of parts of the brain related to memory. -Neuropsychological testing to get a more detailed picture of your thinking and memory. It takes 2-3 hours and preferably should be done with our staff here. These are our recommendations: After all the diagnostic procedures listed above please schedule report visit with Dr. Zavala to discuss results and develop treatment plan. You can arrange this with scheduling on the 3 ed floor, as well as tests and therapies if needed. Please call us with any questions or concerns at [phone] ( you will reach [employer] clinical sales assistant displays) our or scheduling at [phone]. Here's how to keep your brain healthy: ? Focus on what you enjoy ? Maintain an active social life as much as possible ? Exercise as tolerated, preferably 30 minutes 4 times/week or 40 min. 3x/week ? Get 7-8 hrs of sleep per night with good sleep hygiene ? Maintain a predictable daily routine ? Keep a daily journal to organize thoughts, goals and accomplishments ? Try learning new hobbies or skills, even if you're not great at them ? Keep your brain active with puzzles and games you enjoy Visit Notes: >> Sharad (Rn) EDGARD Roman ThuOct 09, 2017 12:32 PM Status: Addendum Rosio Polo is a 57 year old year old right handed man seen today for memory concerns, cognitive change Accompanied by: spouse. 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[employer] Diabetes, SARA (CPAP), hyperlipidemia Family History of Dementia: maternal grandmother had issue with memory starting in her mid 70's (AD) and mother has AD/PD memory issues starting in late 60's (preceded by PD movement issues) Symptoms: Patient notes difficulty with concentration and comprehension (reads something but can't understand it), word finding difficulty, short term memory difficulty, needs to have things proof read because of leaving words out Spouse notes repeating questions, Some changes in finances, used to be very frugal, has been spending more now ATV's, truck, camper, etc. Had an issue with anxiety and depression about 5 years ago requiring hospitalization, passing out, dry heaving Onset and Progression: Concerned for changes over the past 5 years Living Situation: With Spouse, two story home ADL's: Independent Driving: Some confusion while driving Finances: has taken over finances because payment made mistakes in bills Medication Management: self, some missed doses occasionally Falls: none Sleep: vivid dreams, talks and acts out in sleep. Purpose of Visit: would like to understand what is causing changes in memory. Medications, diabetes, or something else underlying? If at any point you qualify to participate in research would you like to be contacted by one of our research coordinators? Yes Vital Signs: BP 150/82 Pulse 78 Resp 12 Ht 180.3 cm (5' 11) Wt 108.9 kg (240 lb) BMI 33.47 kg/m2 Disposition: Return for [facility] only for report . Follow-up and Disposition History Recorded Letter Text Neurological [place] [facility] [address] [place] [address]/[place] [address] Office: [phone] Dear Rosio Polo: Thank you for making an appointment to see us at the [facility]. We are committed to helping those with cognitive disorders, and will do our best to respond to your needs. Your initial visit will be with one of our physicians. Recommendations for additional appointments and/or testing (lab work, MRI, etc.) may be made during that appointment. Please bring the following to your appointment: Your primary support person (spouse, parent, other family member, friend, etc.). Their insight and perspective will be valuable in determining the appropriate course of action for your care. If a support person is not available, your physician may request to speak with them by phone. Previous neuropsychological testing results, lab results and brain imaging reports and imaging films on a CD. It is our recommendation that you bring these materials with you to your appointment. Your current medications in the prescription bottle. Documentation of a Healthcare Power of Film Loader, guardian, conservator or any legally appointed associate sales representative (if relevant to your situation). Our child welfare social worker can provide assistance if needed with completing this type of paperwork. Your insurance information. If you were unable to give your insurance information when scheduling your visit, please bring that information with you and arrive 30 minutes earlier than scheduled. Should you have questions, the financial counselor can be reached at [phone] or Toll Free at (extension [phone]). Your appointment will take place at the [facility] in the [facility] building at [address] [place] [address] (between [address]). Enter the parking lot from [address] where parking is available in front of the building. Check in at the [facility] desk when you enter the building. Again, thank you for making an appointment with us. If you have any questions about the appointment, please feel free to contact us at or [phone]. We look forward to meeting you. Sincerely, [facility] Team Enclosures: Map, Appointment Schedule Letter [facility] [address] [facility]/[address] [address] Office: [phone] Dear Rosio Polo: Thank you for making an appointment to see us at the [facility]. We are committed to helping those with cognitive disorders, and will do our best to respond to your needs. Your initial visit will be with one of our physicians. Recommendations for additional appointments and/or testing (lab work, MRI, etc.) may be made during that appointment. Please bring the following to your appointment: Your primary support person (spouse, parent, other family member, friend, etc.). Their insight and perspective will be valuable in determining the appropriate course of action for your care. If a support person is not available, your physician may request to speak with them by phone. Previous neuropsychological testing results, lab results and brain imaging reports and imaging films on a CD. It is our recommendation that you bring these materials with you to your appointment. Your current medications in the prescription bottle. Documentation of a Healthcare Power of Film Loader, guardian, conservator or any legally appointed associate sales representative (if relevant to your situation). Our child welfare social worker can provide assistance if needed with completing this type of paperwork. Your insurance information. If you were unable to give your insurance information when scheduling your visit, please bring that information with you and arrive 30 minutes earlier than scheduled. Should you have questions, the financial counselor can be reached at [phone] or Toll Free at (extension [phone]). Your appointment will take place at the [facility] in the [facility] building at [address] ([address]). Enter the parking lot from [address] where parking is available in front of the building. Check in at the [facility] desk when you enter the building. Again, thank you for making an appointment with us. If you have any questions about the appointment, please feel free to contact us at or [phone]. We look forward to meeting you. Sincerely, [facility] Enclosures: Map, Appointment Schedule Encounter Status:Closed by MANDI ZAVALA MD on 10/13/17 PROGRESS Observed: 09/15/2017 Status: COMPLETED Source: [facility] 2:12 PM [facility] REPOSITORY HNO ID: [id number] Author: [place] Cano Service: (none) Author Type: Physician Type: Progress Notes Filed: 10/13/2017 6:29 PM Note Text: Last visit: 12/09/2016 Reason for follow up: DM Type 2 HISTORY OF PRESENT ILLNESS; Mr. Polo is a 57 year old gentleman came for follow up visit regarding DM Type 2. He was initially diagnosed with diabetes at age 48. He does have a family history of diabetes mellitus in his Father and Grandparents. The patient reports the following microvascular complications: peripheral neuropathy. Rosio has no know macrovascular complications of diabetes. He is currently on oral agents. September 09, 2016: came for follow up visit. His current diabetes regimen is Metformin 2000, Amaryl 2 mg 1 pill in the AM and 2 pills with dinner, and Januvia 100mg. Also taking lantus 20 units in the AM. Regarding symptoms of hyperglycemia, he is is experiencing polyuria, polydipsia and fatigue. He has h/o sleep walking, and he wakes up in the middle of the night and eats cookies, at least once. September 15, 2017: working from 8:30AM to 2 PM, Taking Basaglar 25 units at mid night, metformin 1000 mg po bid, Amaryl 4 mg po bid, Januvia 100 mg po qd, as per pt he has habit of walking and eating during sleeping and that makes his blood sugar high, checking blood sugar once a day, not doing much exercise due to winter. Dietary History is as follows: trying to follow diet as much as possible. Not there yet Exercise: no regular routine Rosio is checking his blood glucose 1 times a week. He did bring a logbook today for review: ? Fastin mg/dL ? 2 hr post breakfast: 281 mg/dL ? Prelunch: 222-273 mg/dL ? 2 hr post lunch: 172-253 mg/dL Hypoglycemia frequency: not recently, had on blood sugar low 66 in Jun 2017 Hypoglycemia awareness: Yes The patient comes into the office today with complaints of high blood sugar and high Hba1c. Eye exam: October 2016: OK Vacc: declined since he had bad reaction in the past so he is concerned Feet Exam: last visit, Diabetic education: 2008 PAST MEDICAL HISTORY Diagnosis Date - Acute gastritis without mention of hemorrhage - Benign neoplasm of colon - Esophageal reflux - HYPERLIPIDEMIA NEC/NOS 07/08/2005 - Kidney stone 04/23/2010 - Lumbago 03/10/2011 - Lumbosacral spondylosis without myelopathy 03/11/2010 - Obesity, unspecified - Obstructive sleep apnea (adult) (pediatric) 05/22/2011 - SARA on CPAP 05/22/2011 Dr. Salinas. CPAP used. 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 - Type II or unspecified type diabetes mellitus without mention of complication, not stated as uncontrolled - Venous thrombosis 10/08/2009 Postoperative post plantar fasaciaa release PAST SURGICAL HISTORY Procedure Laterality Date - COLONOSCOP W/ OR W/O BRSH SPEC 10/30/08 Colonoscopy - EGD W/O BRSH SPECIMEN W/BX 04/26/2007 Gastritis - EGD W/O OR W/BRUSH/WASH 10/21/2004 EGD - EGD W/O OR W/BRUSH/WASH 04/30/13 EGD - LAPAROSCOPIC CHOLEYCYSTECTOMY 05/04/2013 Cholecystectomy, lap - REPAIR FOREARM TENDON.MUSCLE Right elbow - SCOPE, PLANTAR FASCIOTOMY 09/18/2009 FAMILY HISTORY Problem Relation Age of Onset - parkinson [OTHER] Mother - Heart Father CAD- triple bypass - Diabetes Father - Heart Paternal Grandfather - Diabetes Paternal Grandmother Social History Marital status: Spouse name: Years of education: Number of children: 2 Occupational History 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 Current Outpatient Prescriptions: pravastatin (PRAVACHOL) 40 mg tablet Take 1 tablet by mouth daily at bedtime. For cholesterol. Disp: 90 tablet Rfl: 3 lansoprazole (PREVACID) 30 mg capsule TAKE 1 TO 2 CAPSULES DAILY Disp: 180 capsule Rfl: 3 clotrimazole-betamethasone (LOTRISONE) cream Apply 1 application to affected area twice daily as needed (rash). Disp: 45 g Rfl: 0 Insulin [place], Disposable, (PEN NEEDLES) 31 gauge x 1/4 ndle 1 Each once daily. Disp: 100 Each Rfl: 1 insulin glargine (BASAGLAR KWIKPEN) 100 unit/mL (3 mL) inpn TWENTY FIVE (25) units at bedtime. Indications: Diabetes Mellitus Disp: Rfl: sitaGLIPtin (JANUVIA) 100 mg tablet Take 1 tablet by mouth once daily. Disp: 90 tablet Rfl: 3 glimepiride (AMARYL) 2 mg tablet TAKE 2 TABLETS TWICE A DAY WITH MEALS (BREAKFAST AND DINNER) Disp: 360 tablet Rfl: 3 metFORMIN (GLUCOPHAGE) 500 mg tablet Take 2 tablets by mouth twice daily. Disp: 360 tablet Rfl: 3 COMPOUNDED PRESCRIPTION CPAP Replacement parts, including mask, straps, tubing, Diagnosis: SARA on CPAP - ICD9: 327.23, ICD10: G47.33 Disp: 1 Each Rfl: 0 CPAP CPAP @ 10 cm of water with humidification. Mask (per patient preference) optional chin strap (if indicated), filters, tubing / heated tubing, heated humidity and lifetime supplies. Dx. SARA G47.33 327.23 Disp: Rfl: 0 blood sugar diagnostic (BLOOD GLUCOSE TEST) test strip Test blood sugar(s) 3 times daily. Dx: E11.65 Insulin: No. Please dispense Health Pro Easy Touch Test Strips. Code C15 Disp: 50 Strip Rfl: 11 citalopram (CELEXA) 20 mg tablet Take 1 tablet by mouth once daily. Disp: Rfl: 0 mirtazapine (REMERON) 30 mg tablet Take 1 tablet by mouth daily at bedtime. Disp: Rfl: 0 ASPIRIN 81 MG TAB Take one(1) tablet daily. Disp: 30 Rfl: 11 albuterol HFA (PROVENTIL HFA, VENTOLIN HFA) 90 mcg/actuation inhaler Inhale 2 Puffs as instructed every 6 hours as needed. Disp: 1 Inhaler Rfl: 0 No current facility-administered medications for this visit. Allergies As of Date: 09/15/2017 Allergen Noted Reaction INFLUENZA VIRUS VACCINES 11/13/2014 Other: See Comments PREDNISONE 01/12/2013 Rash SERTRALINE 07/11/2013 GI Upset VICODIN [HYDROCODONE-ACETAMINOPHE*05/11/2013 Itching Fully Assessed 09/15/2017 REVIEW OF SYSTEMS: September 15, 2017 General: no fever, or chills, stable weight Skin: no rashes, pruritis or dry skin Eyes: no blurred or double vision or eye pain Cardiac: denies chest pain, heart palpitations or orthopnea Pulmonary: denies wheezing, productive cough or exertional dyspnea, still smoking GI: denies nausea, vomiting, diarrhea or constipation Neuro: numbness/tingling in feet Musc: denies history of upper or lower extremity weakness Endocrine: denies polyuria, polydipsia, nocturia, blurry vision or excessive fatigue Hematology: Negative for anemia, easy bleeding and bruising. But has h/o DVT after surgery in the past (leg) All other systems: non-contributory PHYSICAL EXAM: BP 130/83 (BP Site: Left Arm, BP Position: Sitting, BP Cuff Size: Regular Adult) Pulse 76 Ht 180.3 cm (5' 11) Wt 110.1 kg (242 lb 12.8 oz) SpO2 96% BMI 33.86 kg/m2 September 15, 2017 General: alert, in no acute distress, well-hydrated, Obese Skin: skin color, texture, turgor normal, no rashes or lesions. Head: normocephalic, no masses, lesions, tenderness or abnormalities. Eyes: Anicteric sclera. Pupils are equally round and reactive to light. Extraocular movements are intact. Oropharynx: Lips, mucosa, and tongue normal, oropharynx normal Neck: Supple, no adenopathy; thyroid symmetric, normal size, no bruits Heart: RRR without murmur, gallop, or rubs. No ectopy Abdomen: soft, non-tender, positive bowel sounds Extremities: no edema, no calluses or ulcers present. and sensation decreased b/l based on 128hz tuning fork examination. Peripheral Pulses: posterior tibial and doralis pedis pulses 2+ and symmetrical DATA: Component Latest Ref Rng AND Units 03/27/2017 09/14/2017 09/15/2017 Protein, Total 6.3 - 8.0 g/dL 7.5 Albumin 3.9 - 4.9 g/dL 4.4 Calcium 8.5 - 10.2 mg/dL 10.2 9.3 Bilirubin, Total 0.2 - 1.3 mg/dL 0.4 Alkaline Phosphatase 36 - 108 U/L 107 AST 14 - 40 U/L 31 Glucose 74 - 99 mg/dL 294 (H) 350 (H) BUN 9 - 24 mg/dL 12 13 Creatinine 0.73 - 1.22 mg/dL 0.87 0.88 Sodium 136 - 144 mmol/L 136 138 Potassium 3.7 - 5.1 mmol/L 4.8 4.4 Chloride 97 - 105 mmol/L 97 98 CO2 22 - 30 mmol/L 24 27 Anion Gap 9 - 18 mmol/L 15 13 ALT 10 - 54 U/L 37 eGFR- >60 >60 eGFR-All Other Races . >60 >60 Triglyceride 30 - 149 mg/dL 366 (H) Cholesterol, Total 100 - 199 mg/dL 162 HDL Cholesterol >45 mg/dL 22 (L) VLDL Cholesterol 6 - 40 mg/dL 73 (H) LDL Cholesterol 60 - 129 mg/dL 67 Fasting Time hrs 16 TC:HDL Ratio 1.00 - 5.00 7.36 (H) LDL:HDL Ratio 0.50 - 3.55 3.05 Non HDL Cholesterol 90 - 159 mg/dL 140 Creatinine, Ur Random (UCRR) 20 - 300 mg/dL 175.6 Albumin, Urine Random 0.0 - 23.0 mg/L <12.0 Albumin/Creat Ratio 0 - 30 mg/g Not calculated Hemoglobin A1C 4.3 - 5.6 % 8.6 (H) 9.4 (H) Estimated Average Glucose mg/dL 200 223 Hemoglobin A1C (POCT) 4.2 - 5.6 % 9.8 (A) Component Latest Ref Rng AND Units 06/25/2016 Glucose 74 - 99 mg/dL 193 (H) BUN 9 - 24 mg/dL 10 Creatinine 0.73 - 1.22 mg/dL 0.86 Sodium 136 - 144 mmol/L 135 (L) Potassium 3.7 - 5.1 mmol/L 4.3 Chloride 97 - 105 mmol/L 96 (L) CO2 22 - 30 mmol/L 25 Anion Gap 9 - 18 mmol/L 14 Calcium 8.6 - 10.0 mg/dL 9.6 eGFR- >60 eGFR-All Other Races . >60 Triglyceride 30 - 149 mg/dL 184 (H) Cholesterol 100 - 199 mg/dL 147 HDL Cholesterol >45 mg/dL 25 (L) VLDL Cholesterol 6 - 40 mg/dL 37 LDL Cholesterol 60 - 129 mg/dL 85 Fasting Time hrs 16 TC:HDL Ratio 1.00 - 5.00 5.88 (H) LDL:HDL Ratio 0.50 - 3.55 3.40 Non HDL Cholesterol 90 - 159 mg/dL 122 Creatinine, Ur Random (UCRR) 20 - 300 mg/dL 114.8 Albumin, Urine Random 0.0 - 23.0 mg/L <12.0 Albumin/Creat Ratio 0 - 30 mg/g <3 Hemoglobin A1C 4.3 - 5.6 % 10.2 (H) Estimated Average Glucose mg/dL >240 Creatinine Date Value Ref Range Status 09/14/2017 0.88 0.73 - 1.22 mg/dL Final HBA1C [place] (%) Date Value 10/23/2011 6.7* Hemoglobin A1C (%) Date Value 09/10/2015 9.2* ) No components found for: URINEALBUMIN Cholesterol (mg/dL) Date Value 06/11/2015 143 HDL Cholesterol (mg/dL) Date Value 06/11/2015 22* LDL Chol, [place] (mg/dL) Date Value 02/20/2012 105 LDL Cholesterol (mg/dL) Date Value 06/11/2015 71 Triglyceride (mg/dL) Date Value 06/11/2015 248* IMPRESSION: Mr. Polo is a 57 year old male here for evaluation of DM Type 2 complicated by hypertension and peripheral neuropathy. RECOMMENDATIONS: (E11.8, E11.65, Z79.4) Uncontrolled type 2 diabetes mellitus with complication, with long-term current use of insulin (HCC) (primary encounter diagnosis) Comment: pathophysiology AND treatment options discussed. HbA1c is 9.8%. Currently his diabetes is not under control due to noncompliance with diet. Go up on Lantus/Basaglar to 30 units at bed time. We will also refer him to childbirth educator for optimization of diet. Discussed the importance of following diet and exercise in addition to taking his current diabetes medications on a regular basis. Plan: DIABETES EDUCATION (CDE) (X20), TSH BLD (E78.2) Mixed hyperlipidemia Comment: pathophysiology AND treatment options discussed. Currently on statin and stable. Plan: continue current Rx. Check lipid panel once blood sugar is better controlled. (F41.9) Anxiety Comment: Etiology not clear. May not be related to diabetes and thyroid disorder. However we'll optimize dose first. Plan: Better control of blood sugar suggested. Avoid hypoglycemia and low TSH. (G47.33, Z99.89) SARA on CPAP Comment: pathophysiology AND treatment options discussed. Plan: Optimize treatment suggested. (R41.3) Memory disturbance Comment: Could be related to uncontrolled blood sugar. Plan: Optimization of blood sugar control was suggested. As well as supportive care including coconut oil 2 teaspoonful per day orally, adequate hydration, healthy lifestyle and regular exercise encouraged. (E66.8) Constitutional obesity Comment: pathophysiology AND treatment options discussed. Plan: Diet, exercise and food supplement discussed. (F17.200) Tobacco use disorder Comment: adverse effects of smoking discussed. Plan: counseled for smoking cessation. (spent 3-5 mins) Howard Cano MD September 15, 2017 CNOV Observed: 09/15/2017 Status: COMPLETED Source: [place] 1:45 PM [facility] RE[facility]IT[facility] Office Visit (ENDMED) ROSIO POLO ([id number]) 1960 M [facility] Date Time Provider Department 09/15/17 1:45 PM HOWARD CANO During your visit today, we recorded the following information about you: Pulse Blood pressure Weight Height 76/minute 130/83 110.1 kg 1.803 m Howard Cano MD 10/13/2017 6:29 PM Signed Last visit: 12/09/2016 Reason for follow up: DM Type 2 HISTORY OF PRESENT ILLNESS; Mr. Polo is a 57 year old gentleman came for follow up visit regarding DM Type 2. He was initially diagnosed with diabetes at age 48. He does have a family history of diabetes mellitus in his Father and Grandparents. The patient reports the following microvascular complications: peripheral neuropathy. Rosio has no know macrovascular complications of diabetes. He is currently on oral agents. September 09, 2016: came for follow up visit. His current diabetes regimen is Metformin 2000, Amaryl 2 mg 1 pill in the AM and 2 pills with dinner, and Januvia 100mg. Also taking lantus 20 units in the AM. Regarding symptoms of hyperglycemia, he is is experiencing polyuria, polydipsia and fatigue. He has h/o sleep walking, and he wakes up in the middle of the night and eats cookies, at least once. September 15, 2017: working from 8:30AM to 2 PM, Taking Basaglar 25 units at mid night, metformin 1000 mg po bid, Amaryl 4 mg po bid, Januvia 100 mg po qd, as per pt he has habit of walking and eating during sleeping and that makes his blood sugar high, checking blood sugar once a day, not doing much exercise due to winter. Dietary History is as follows: trying to follow diet as much as possible. Not there yet Exercise: no regular routine Rosio is checking his blood glucose 1 times a week. He did bring a logbook today for review: ? Fastin mg/dL ? 2 hr post breakfast: 281 mg/dL ? Prelunch: 222-273 mg/dL ? 2 hr post lunch: 172-253 mg/dL Hypoglycemia frequency: not recently, had on blood sugar low 66 in Jun 2017 Hypoglycemia awareness: Yes The patient comes into the office today with complaints of high blood sugar and high Hba1c. Eye exam: October 2016: OK Vacc: declined since he had bad reaction in the past so he is concerned Feet Exam: last visit, Diabetic education: 2007 PAST MEDICAL HISTORY Diagnosis Date - Acute gastritis without mention of hemorrhage - Benign neoplasm of colon - Esophageal reflux - HYPERLIPIDEMIA NEC/NOS 07/08/2005 - Kidney stone 04/23/2010 - Lumbago 03/10/2011 - Lumbosacral spondylosis without myelopathy 03/11/2010 - Obesity, unspecified - Obstructive sleep apnea (adult) (pediatric) 05/22/2011 - SARA on CPAP 05/22/2011 Dr. Salinas. CPAP used. 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 - Type II or unspecified type diabetes mellitus without mention of complication, not stated as uncontrolled - Venous thrombosis 10/08/2009 Postoperative post plantar fasaciaa release PAST SURGICAL HISTORY Procedure Laterality Date - COLONOSCOP W/ OR W/O [facility] SPEC 10/30/08 Colonoscopy - EGD W/O [facility] SPECIMEN W/BX 04/26/2007 Gastritis - EGD W/O OR W/BRUSH/WASH 10/21/2004 EGD - EGD W/O OR W/BRUSH/WASH 04/30/13 EGD - LAPAROSCOPIC CHOLEYCYSTECTOMY 05/04/2013 Cholecystectomy, lap - REPAIR FOREARM TENDON.MUSCLE Right elbow - SCOPE, PLANTAR FASCIOTOMY 09/18/2009 FAMILY HISTORY Problem Relation Age of Onset - parkinson [OTHER] Mother - Heart Father CAD- triple bypass - Diabetes Father - Heart Paternal Grandfather - Diabetes Paternal Grandmother Social History Marital status: Spouse name: Years of education: Number of children: 2 Occupational History 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 Current Outpatient Prescriptions: pravastatin (PRAVACHOL) 40 mg tablet Take 1 tablet by mouth daily at bedtime. For cholesterol. Disp: 90 tablet Rfl: 3 lansoprazole (PREVACID) 30 mg capsule TAKE 1 TO 2 CAPSULES DAILY Disp: 180 capsule Rfl: 3 clotrimazole-betamethasone (LOTRISONE) cream Apply 1 application to affected area twice daily as needed (rash). Disp: 45 g Rfl: 0 Insulin [place], Disposable, (PEN NEEDLES) 31 gauge x 1/4ANDquot; ndle 1 Each once daily. Disp: 100 Each Rfl: 1 insulin glargine (BASAGLAR KWIKPEN) 100 unit/mL (3 mL) inpn TWENTY FIVE (25) units at bedtime. Indications: Diabetes Mellitus Disp: Rfl: sitaGLIPtin (JANUVIA) 100 mg tablet Take 1 tablet by mouth once daily. Disp: 90 tablet Rfl: 3 glimepiride (AMARYL) 2 mg tablet TAKE 2 TABLETS TWICE A DAY WITH MEALS (BREAKFAST AND DINNER) Disp: 360 tablet Rfl: 3 metFORMIN (GLUCOPHAGE) 500 mg tablet Take 2 tablets by mouth twice daily. Disp: 360 tablet Rfl: 3 COMPOUNDED PRESCRIPTION CPAP Replacement parts, including mask, straps, tubing, Diagnosis: SARA on CPAP - ICD9: 327.23, ICD10: G47.33 Disp: 1 Each Rfl: 0 CPAP CPAP @ 10 cm of water with humidification. Mask (per patient preference) optional chin strap (if indicated), filters, tubing / heated tubing, heated humidity and lifetime supplies. Dx. SARA G47.33 327.23 Disp: Rfl: 0 blood sugar diagnostic (BLOOD GLUCOSE TEST) test strip Test blood sugar(s) 3 times daily. Dx: E11.65 Insulin: No. Please dispense Health Pro Easy Touch Test Strips. Code C15 Disp: 50 Strip Rfl: 11 citalopram (CELEXA) 20 mg tablet Take 1 tablet by mouth once daily. Disp: Rfl: 0 mirtazapine (REMERON) 30 mg tablet Take 1 tablet by mouth daily at bedtime. Disp: Rfl: 0 ASPIRIN 81 MG TAB Take one(1) tablet daily. Disp: 30 Rfl: 11 albuterol HFA (PROVENTIL HFA, VENTOLIN HFA) 90 mcg/actuation inhaler Inhale 2 Puffs as instructed every 6 hours as needed. Disp: 1 Inhaler Rfl: 0 No current facility-administered medications for this visit. Allergies As of Date: 09/15/2017 Allergen Noted Reaction INFLUENZA VIRUS VACCINES 11/13/2014 Other: See Comments PREDNISONE 01/12/2013 Rash SERTRALINE 07/11/2013 GI Upset VICODIN [HYDROCODONE-ACETAMINOPHE*05/11/2013 Itching Fully Assessed 09/15/2017 REVIEW OF SYSTEMS: September 15, 2017 General: no fever, or chills, stable weight Skin: no rashes, pruritis or dry skin Eyes: no blurred or double vision or eye pain Cardiac: denies chest pain, heart palpitations or orthopnea Pulmonary: denies wheezing, productive cough or exertional dyspnea, still smoking GI: denies nausea, vomiting, diarrhea or constipation Neuro: numbness/tingling in feet Musc: denies history of upper or lower extremity weakness Endocrine: denies polyuria, polydipsia, nocturia, blurry vision or excessive fatigue Hematology: Negative for anemia, easy bleeding and bruising. But has h/o DVT after surgery in the past (leg) All other systems: non-contributory PHYSICAL EXAM: BP 130/83 (BP Site: Left Arm, BP Position: Sitting, BP Cuff Size: Regular Adult) Pulse 76 Ht 180.3 cm (5' 11ANDquot;) Wt 110.1 kg (242 lb 12.8 oz) SpO2 96% BMI 33.86 kg/m2 September 15, 2017 General: alert, in no acute distress, well-hydrated, Obese Skin: skin color, texture, turgor normal, no rashes or lesions. Head: normocephalic, no masses, lesions, tenderness or abnormalities. Eyes: Anicteric sclera. Pupils are equally round and reactive to light. Extraocular movements are intact. Oropharynx: Lips, mucosa, and tongue normal, oropharynx normal Neck: Supple, no adenopathy; thyroid symmetric, normal size, no bruits Heart: RRR without murmur, gallop, or rubs. No ectopy Abdomen: soft, non-tender, positive bowel sounds Extremities: no edema, no calluses or ulcers present. and sensation decreased b/l based on 128hz tuning fork examination. Peripheral Pulses: posterior tibial and doralis pedis pulses 2+ and symmetrical DATA: Component Latest Ref Rng ANDamp; Units 03/27/2017 09/14/2017 09/15/2017 Protein, Total 6.3 - 8.0 g/dL 7.5 Albumin 3.9 - 4.9 g/dL 4.4 Calcium 8.5 - 10.2 mg/dL 10.2 9.3 Bilirubin, Total 0.2 - 1.3 mg/dL 0.4 Alkaline Phosphatase 36 - 108 U/L 107 AST 14 - 40 U/L 31 Glucose 74 - 99 mg/dL 294 (H) 350 (H) BUN 9 - 24 mg/dL 12 13 Creatinine 0.73 - 1.22 mg/dL 0.87 0.88 Sodium 136 - 144 mmol/L 136 138 Potassium 3.7 - 5.1 mmol/L 4.8 4.4 Chloride 97 - 105 mmol/L 97 98 CO2 22 - 30 mmol/L 24 27 Anion Gap 9 - 18 mmol/L 15 13 ALT 10 - 54 U/L 37 eGFR- ANDgt;60 ANDgt;60 eGFR-All Other Races . ANDgt;60 ANDgt;60 Triglyceride 30 - 149 mg/dL 366 (H) Cholesterol, Total 100 - 199 mg/dL 162 HDL Cholesterol ANDgt;45 mg/dL 22 (L) VLDL Cholesterol 6 - 40 mg/dL 73 (H) LDL Cholesterol 60 - 129 mg/dL 67 Fasting Time hrs 16 TC:HDL Ratio 1.00 - 5.00 7.36 (H) LDL:HDL Ratio 0.50 - 3.55 3.05 Non HDL Cholesterol 90 - 159 mg/dL 140 Creatinine, Ur Random (UCRR) 20 - 300 mg/dL 175.6 Albumin, Urine Random 0.0 - 23.0 mg/L ANDlt;12.0 Albumin/Creat Ratio 0 - 30 mg/g Not calculated Hemoglobin A1C 4.3 - 5.6 % 8.6 (H) 9.4 (H) Estimated Average Glucose mg/dL 200 223 Hemoglobin A1C (POCT) 4.2 - 5.6 % 9.8 (A) Component Latest Ref Rng ANDamp; Units 06/25/2016 Glucose 74 - 99 mg/dL 193 (H) BUN 9 - 24 mg/dL 10 Creatinine 0.73 - 1.22 mg/dL 0.86 Sodium 136 - 144 mmol/L 135 (L) Potassium 3.7 - 5.1 mmol/L 4.3 Chloride 97 - 105 mmol/L 96 (L) CO2 22 - 30 mmol/L 25 Anion Gap 9 - 18 mmol/L 14 Calcium 8.6 - 10.0 mg/dL 9.6 eGFR- ANDgt;60 eGFR-All Other Races . ANDgt;60 Triglyceride 30 - 149 mg/dL 184 (H) Cholesterol 100 - 199 mg/dL 147 HDL Cholesterol ANDgt;45 mg/dL 25 (L) VLDL Cholesterol 6 - 40 mg/dL 37 LDL Cholesterol 60 - 129 mg/dL 85 Fasting Time hrs 16 TC:HDL Ratio 1.00 - 5.00 5.88 (H) LDL:HDL Ratio 0.50 - 3.55 3.40 Non HDL Cholesterol 90 - 159 mg/dL 122 Creatinine, Ur Random (UCRR) 20 - 300 mg/dL 114.8 Albumin, Urine Random 0.0 - 23.0 mg/L ANDlt;12.0 Albumin/Creat Ratio 0 - 30 mg/g ANDlt;3 Hemoglobin A1C 4.3 - 5.6 % 10.2 (H) Estimated Average Glucose mg/dL ANDgt;240 Creatinine Date Value Ref Range Status 09/14/2017 0.88 0.73 - 1.22 mg/dL Final HBA1C, [place] (%) Date Value 10/23/2011 6.7* Hemoglobin A1C (%) Date Value 09/10/2015 9.2* ) No components found for: URINEALBUMIN Cholesterol (mg/dL) Date Value 06/11/2015 143 HDL Cholesterol (mg/dL) Date Value 06/11/2015 22* LDL Chol, [place] (mg/dL) Date Value 02/20/2012 105 LDL Cholesterol (mg/dL) Date Value 06/11/2015 71 Triglyceride (mg/dL) Date Value 06/11/2015 248* IMPRESSION: Mr. Polo is a 57 year old male here for evaluation of DM Type 2 complicated by hypertension and peripheral neuropathy. RECOMMENDATIONS: (E11.8, E11.65, Z79.4) Uncontrolled type 2 diabetes mellitus with complication, with long-term current use of insulin (HCC) (primary encounter diagnosis) Comment: pathophysiology ANDamp; treatment options discussed. HbA1c is 9.8%. Currently his diabetes is not under control due to noncompliance with diet. Go up on Lantus/Basaglar to 30 units at bed time. We will also refer him to childbirth educator for optimization of diet. Discussed the importance of following diet and exercise in addition to taking his current diabetes medications on a regular basis. Plan: DIABETES EDUCATION (CDE) (X20), TSH BLD (E78.2) Mixed hyperlipidemia Comment: pathophysiology ANDamp; treatment options discussed. Currently on statin and stable. Plan: continue current Rx. Check lipid panel once blood sugar is better controlled. (F41.9) Anxiety Comment: Etiology not clear. May not be related to diabetes and thyroid disorder. However we'll optimize dose first. Plan: Better control of blood sugar suggested. Avoid hypoglycemia and low TSH. (G47.33, Z99.89) SARA on CPAP Comment: pathophysiology ANDamp; treatment options discussed. Plan: Optimize treatment suggested. (R41.3) Memory disturbance Comment: Could be related to uncontrolled blood sugar. Plan: Optimization of blood sugar control was suggested. As well as supportive care including coconut oil 2 teaspoonful per day orally, adequate hydration, healthy lifestyle and regular exercise encouraged. 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 Plan: Diet, exercise and food supplement discussed. (F17.200) Tobacco use disorder Comment: adverse effects of smoking discussed. Plan: counseled for smoking cessation. (spent 3-5 mins) Howard Cano MD September 15, 2017 Howard Cano MD 09/15/2017 2:34 PM Signed Go up on Lantus/Basaglar to 30 units at bed time. Referring Provider: LUANA GARCIA ([facility]) [[id number]] Allergies As of Date: 09/15/2017 Noted Allergy Reaction INFLUENZA VIRUS VACCINES 11/13/2014 14 - Other: See Comments Comments: myalgias PREDNISONE 01/12/2013 2 - Rash SERTRALINE 07/11/2013 8 - GI Upset VICODIN (HYDROCODONE-ACETAMINOPHE*05/11/2013 9 - Itching Date Reviewed: 09/15/2017 Reviewed by: Daria Mercado MA - Fully Assessed Reason for Visit: Diabetes [34] Primary Visit Diagnosis:Uncontrolled type 2 diabetes mellitus with complication, with long-term current use of insulin (HCC) [E11.8, E11.65, Z79.4] Other Visit Diagnoses:Mixed hyperlipidemia [E78.2] Anxiety [F41.9] SARA on CPAP [G47.33, Z99.89] Memory disturbance [R41.3] Constitutional obesity [E66.8] Tobacco use disorder [F17.200] Order(s):HEMOGLOBIN A1C (POC) [2114825] Order #: [id number]. #:[id number] DIABETES EDUCATION (CDE) (X20) [7095016] Order #: [id number]: 1 TSH BLD [SQTSH] Order #: [id number] FUTURE Prescriptions as of 09/15/2017 Sig: PRAVASTATIN 40 MG TABLET Take 1 tablet by mouth daily * LANSOPRAZOLE 30 MG CAPSULE,DE* TAKE 1 TO 2 CAPSULES DAILY X CLOTRIMAZOLE-BETAMETHASONE 1 * Apply 1 application to affect* X PEN NEEDLE, DIABETIC 31 GAUGE* 1 Each once daily. X INSULIN GLARGINE (U-100) 100 * TWENTY FIVE (25) units at bed* SITAGLIPTIN 100 MG TABLET Take 1 tablet by mouth once d* GLIMEPIRIDE 2 MG TABLET TAKE 2 TABLETS TWICE A DAY WI* METFORMIN 500 MG TABLET Take 2 tablets by mouth twice* COMPOUNDED PRESCRIPTION CPAP Replacement parts, inclu* CPAP CPAP @ 10 cm of water with hu* BLOOD SUGAR DIAGNOSTIC STRIPS Test blood sugar(s) 3 times d* CITALOPRAM 20 MG TABLET Take 1 tablet by mouth once d* MIRTAZAPINE 30 MG TABLET Take 1 tablet by mouth daily * ASPIRIN 81 MG TABLET Take one(1) tablet daily. ALBUTEROL SULFATE HFA 90 MCG/* Inhale 2 Puffs as instructed * Medication notes this encounter ALBUTEROL SULFATE HFA 90 MCG/ACTUATION AEROSOL INHALER >> Daria Meracdo MA 09/15/2017 1:57 PM >> JAMES BROWNDARIA Sep 15, 2017 1:57 PM Not taking Problem List As Of Date 09/15/2017 Noted Resolved OVERWEIGHT [E66.9] INVALID FOR* Diabetes type 2, uncontrolled (HCC) [E11.65] INVALID FOR* More... Hyperlipemia [E78.5] INVALID FOR* More... ESOPHAGEAL REFLUX [K21.9] INVALID FOR* Cervical rib [Q76.5] INVALID FOR*12/09/2010 Personal history of tobacco use, presenting haz*INVALID FOR*03/29/2014 More... Abdominal pain, generalized [R10.84] INVALID FOR*12/09/2010 Abdominal pain, right upper quadrant [R10.11] INVALID FOR*12/09/2010 Acute gastritis without mention of hemorrhage [*INVALID FOR*12/09/2010 More... BENIGN JOYA SKIN TRUNK [D23.5] INVALID FOR* Calcaneal spur [M77.30] INVALID FOR*12/09/2010 Plantar fascial fibromatosis [M72.2] INVALID FOR*12/09/2010 Abnormality of gait [R26.9] INVALID FOR*12/09/2010 Venous thrombosis [I82.90] INVALID FOR*08/19/2012 Lumbosacral spondylosis without myelopathy [M47*INVALID FOR*03/29/2014 Pain in limb [M79.609] INVALID FOR*03/29/2014 More... Pain in joint, shoulder region [M25.519] INVALID FOR*12/09/2010 Anxiety [F41.9] INVALID FOR* More... Kidney stone [N20.0] INVALID FOR*12/09/2010 More... Lumbago [M54.5] INVALID FOR*03/29/2014 SARA on CPAP [G47.33, Z99.89] INVALID FOR* More... Bronchitis [J40] INVALID FOR* Tobacco use disorder [F17.200] INVALID FOR* Parasomnia [G47.50] INVALID FOR* More... SARA (obstructive sleep apnea) AHI 22 [G47.33] INVALID FOR*04/30/2017 Chronic left shoulder pain [M25.512, G89.29] INVALID FOR* Memory disturbance [R41.3] INVALID FOR* Other instructions from your clinician: Go up on Lantus/Basaglar to 30 units at bed time. Disposition: Return in about 3 months (around 12/13/2017). Follow-up and Disposition History Recorded Encounter Status:Closed by HOWARD CANO MD on 10/13/17 ALBUMIN/CREAT RATIO Collected: 09/14/2017 Status: F Source: [place] 9:03 AM [facility] REPOSITORY TYPE CODE TESTS RESULT OUT OF REFERENCE UNITS RANGE LAB UCRR 20-300 mg/dL 175.6 Creatinine,Ur ine,Ran LAB UALBR 0.0-23.0 mg/L <12.0 Albumin Urine Random LAB UALBCR 0-30 mg/g Not Albumin/Creat calculated Ratio Performed By: #### UACR #### [facility] [address] [place] [id number] BASIC METABOLIC PANL Collected: 09/14/2017 Status: F Source: [place] 9:02 AM [facility] REPOSITORY TYPE CODE TESTS RESULT OUT OF REFERENCE UNITS RANGE LAB GLU 74-99 mg/dL High Glucose 350 Result Comment: The [place] Diabetes Association (ADA) provides guidance for cutoff values for fasting glucose and random glucose. The ADA defines fasting as no caloric intake for at least 8 hours. Fas ting plasma glucose results between 100 to 125 mg/dL indicate increased risk for diabetes (prediabetes). Fasting plasma glucose results greater than or equal to 126 mg/dL meet the criteria for diagnosis of diabetes. In the absence of unequivocal hyperglycemia, results should be confirmed by repeat testing. In a patient with classic symptoms of hyperglycemia or hyperglycemic crisis, random plasma glucose results greater than or equal to 200 mg/dL meet the criteria for diagnosis of diabetes. Reference: Standards of Medical Care in Diabetes 2016, [place] [employer] Association. Diabetes Care. 2016.39(Suppl 1). LAB BUN 9-24 mg/dL BUN 13 LAB CRET 0.73-1.22 mg/dL Creatinine 0.88 LAB NA 136-144 mmol/L Sodium 138 LAB K 3.7-5.1 mmol/L Potassium 4.4 LAB CL 97-105 mmol/L Chloride 98 LAB CO2 22-30 mmol/L CO2 27 LAB AGAP 9-18 mmol/L Anion Gap 13 LAB CA 8.5-10.2 mg/dL Calcium, Total 9.3 LAB GFRAA eGFR- Amer. >60 LAB GFRNAA . eGFR-All Other Races >60 Result Comment: eGFR (Estimated GFR) Units of measure: mL/min/1.73 meters squared eGFR is derived from the reexpressed MDRD Study equation using the following parameters: serum creatinine, age, gender and race. The creatinine assay has been calibrated to be traceable to IDMS. An eGFR <60 mL/min/1.73m2 for >3 months is consistent with chronic kidney disease. Refer to KDOQI guidelines for clinical interpretation. In patients with unstable renal function, e.g. those with acute kidney injury, the eGFR may not accurately reflect actual GFR. Performed By: #### BMP, HBA1C #### [facility] [address] [place], [place] [address] HEMOGLOBIN A1C Collected: 09/14/2017 Status: F Source: [place] 9:02 [facility] REPOSITORY TYPE CODE TESTS RESULT OUT OF REFERENCE UNITS RANGE LAB HGBA1C 4.3-5.6 % High Hemoglobin A1c 9.4 LAB HBA0 mg/dL Est. Average Glucose 223 Result Comment: eAG: (Estimated average glucose) is a calculated value from HgbA1c and is associate sales representative of the average blood glucose level in the last 2-3 month period. Performed By: #### BMP, HBA1C #### [facility] [address] [place], [place] [address] ALLERGIES ALLERGIES DATE TYPE / CODE NAME / CODE REACTION SEVERITY SOURCE 06/18/2018 Drug hydrocodone/F0060 Rash Unknown Gem Allergy/416 60094(RXNORM) [facility] 931986([facility] ED CT) Repository 06/18/2018 Drug prednisone/F52399 Rash Unknown Arena Allergy/416 2164(RXNORM) [facility] 048009([facility] ED CT) Repository 11/13/2014 Drug INFLUENZA VIRUS OTHER: SEE C High [facility] Class/40457 VACCINES [place] 1003(SNOMED Repository CT) 07/11/2013 DRUG SERTRALINE GI UPSET [facility] INGREDI/419 [place] 019057(SNOM Repository ED CT) 05/11/2013 DRUG/642615 HYDROCODONE-ACETA ITCHING [facility] 003(SNOMED MINOPHEN [place] CT) Repository 01/12/2013 DRUG PREDNISONE RASH [facility] INGREDI/419 [address] [place] 047959(SNOM Repository ED CT) ENCOUNTERS ENCOUNTERS ADMIT/DISCHARGE ACCOUNT ADMITTING ENCOUNTER LOCATION SOURCE NUMBER CLASS 07/09/2018 [id number] Ambulatory [facility] ing:LAB Repository 06/25/2018 [id number] Ambulatory [facility] ing:CT Repository 06/24/2018/06/24/20 [id number] Ambulatory [address] [place] Repository 06/24/2018/06/24/20 [id number] Ambulatory [address] [place] Repository 06/18/2018/06/18/20 [id number] Emergency [address] ing:ED Repository 06/14/2018/06/14/20 [id number] Ambulatory [address] [place] Repository 06/14/2018/06/15/20 [id number] Ambulatory [address] [place] Repository 06/12/2018/06/12/20 [id number] Emergency [address] ing:ED Repository 03/02/2018/03/03/20 [id number] Ambulatory [address] [place] Repository 02/22/2018/03/01/20 [id number] Ambulatory [address] [place] Repository 02/17/2018/02/18/20 [id number] Ambulatory [address] [place] Repository 01/05/2018/01/06/20 [id number] Ambulatory [address] [place] Repository 01/05/2018/01/07/20 [id number] Ambulatory [address] [place] Repository 11/20/2017/12/05/19 [id number] Ambulatory [address] [place] Repository 10/29/2017/10/30/19 [id number] Ambulatory [address] [place] Repository 10/29/2017/11/10/19 [id number] Ambulatory [address] [place] Repository 10/28/2017/10/29/19 [id number] Ambulatory [address] [place] Repository 10/09/2017/10/10/19 [id number] Ambulatory [address] [place] Repository 10/09/2017/10/14/19 [id number] Ambulatory [address] [place] Repository 09/15/2017/10/15/[id number] Repository 09/14/2017/09/14/[id number] Repository PAYERS PAYERS ENCOUNTER GUARANTOR PAYER SUBSCRIBER SOURCE 07/09/2018 ROSIO Ray Primary JOHNNY Rabago [id number] Insurance:MEDICAL CHERRYDOB: Community [employer] [facility] [id number] Number: Repository [id number]: 419 [id number] [phone] (HP) Date:6247-13-41WQ [address] [place] [address]YB: 07/09/2018 Secondary NOT GIVENUNK [place] Insurance:SELF PAY [facility] Number: Effective Repository Date:2018-07-09 06/25/2018 ROSIO Ray Primary JOHNNY Gilliam Gem [id number] Insurance:MEDICAL CHERRYDOB: Community [employer] [facility] [id number] Number: Repository [id number]: 419 [id number] [phone] (HP) Date:7718-38-41IP [address] [address]GT: 06/25/2018 Secondary NOT GIVENUNK Gem Insurance:SELF PAY [facility] Number: Effective Repository Date:2018-06-24 06/18/2018 ROSIO Ray Primary JOHNNY Gilliam Gem [id number] Insurance:MEDICAL CHERRYDOB: Community [employer] [facility] [id number] Number: Repository [id number]: [phone]) [id number] [phone] (HP) Date:5997-06-94WD [address] [address]ER: 06/18/2018 Secondary NOT GIVENUNK Arena Insurance:SELF PAY [facility] Number: Effective Repository Date:2018-06-18 06/12/2018 ROSIO Ray Primary JOHNNY Tawana Gem [id number] Insurance:MEDICAL CHERRYDOB: Community [employer] [facility] [id number] Number: Repository [id number]: [phone] [id number] [phone] () Date:2653-50-09[address], [place] [address]YV: 06/12/2018 Secondary NOT GIVENUNK Arena Insurance:SELF PAY [facility] Number: Effective Repository Date:2018-06-12
== END ==
PROVIDERS: Family Provider Internal Medicine; PCP Internal Medicine; Referring Provider Internal Medicine Pulmonary Disease; Visit Provider Internal Medicine Pulmonary Disease
DX: Z86.711 Personal history of pulmonary embolism (principal); Z86.718 Personal history of other venous thrombosis and embolism
CPT/HCPCS: 36415; 81240; 81241; 83090; 85302; 85303; 86147

== ENCOUNTER 2018-09-20 13:26 | Emergency (ER) | payer OTHER, SELFPAY ==
[2018-09-20 13:27] VITALS: BP 157/88; PULSE 91; RESP 20; TEMP 36.6; O2SAT 94; BMI 32.5
[2018-09-20 13:45] VITALS: O2SAT 95
[2018-09-20 13:50] VITALS: BP 152/77; PULSE 72; RESP 12; O2SAT 96
--- NOTE | 2018-09-20 14:29 | EKG12_ITS ---
Test Reason : SOB Blood Pressure : / mmHG Vent. Rate : 068 BPM Atrial Rate : 068 BPM P-R Int : 146 ms QRS Dur : 096 ms QT Int : 418 ms P-R-T Axes : -04 -29 -07 degrees QTc Int : 444 ms Normal sinus rhythm Normal ECG Confirmed by ALANNA CUI, MARTIN ([id number]), website/blog editor JOHN DONATO ([id number]) on 09/24/2018 8:52:33 AM Referred By: KDAEEM Confirmed By:MARTIN MONDRAGON MD
--- NOTE | 2018-09-20 14:30 | ED.VISSUMM ---
- ER Visit Summary Date of Service: 09/20/18 Chief Complaint: Subjective shortness of breath and anxiety History of Present Illness: The patient is a 58 M history of anxiety for years. Also type 2 diabetes and a prior DVT after foot surgery. Physical Examination: Patient states that this morning after getting up around 8:00 felt anxious. He felt short of breath. No exertional chest pain. No hemoptysis. He thinks this may be another anxiety episode but states and family states he just cannot talk himself down and get out of these. Test Results: EKG shows normal sinus rhythm rate of 68 with no acute signs of SD or ischemia. No change from prior EKG for 2018. Chest x-ray portable one view shows portable one view shows no acute. Normal cardiac silhouette mediastinum from a prior. Emergency Department Course and Treatment: Patient given p.o. Benadryl. He has had an issue with Ativan in the past. Treatment Plan: Repeat exam patient is doing well at 1527. He will be discharged home to follow-up as an outpatient. Disposition: Discharge Impression: Acute anxiety This note was generated with [employer] dictation software. It may contain incorrect words, spelling, and punctuation that were not noted in review of the chart prior to signing ED Disposition - Plan for ED Patient: Referrals: Tadeo Salter MD [Primary Care Provider] -
[2018-09-20] MEDS: DiphenhydrAMINE 25 MG Capsule 50 MG PO (14:32)
--- NOTE | 2018-09-20 14:37 | RAD_ITS ---
STUDY: X-RAY CHEST REASON FOR EXAM: Male, 58 years old. Worsening shortness of breath. TECHNIQUE: Single AP portable view of the chest. COMPARISON: Comparison is made with prior study dated June 18, 2018. FINDINGS: EKG electrodes are seen. The lungs are clear and expanded. Scattered calcified granulomas. There is no demonstrated pleural abnormality. Normal size heart. Normal mediastinum and keenan. Normal visualized pulmonary arteries. Normal visualized aortic arch and descending thoracic aorta. There are degenerative changes of the visualized thoracic spine. Normal visualized ribs, clavicles, and shoulders. There is no demonstrated abnormality of the visualized soft tissue structures of the upper abdomen. RAD/Chest 1 View (Portable) IMPRESSION: No acute abnormality is seen. Electronically Signed: Carlton Ortiz MD at 15:00 EST , Service support ,
[2018-09-20 15:02] VITALS: BP 140/78; PULSE 67; RESP 13; TEMP 37.1; O2SAT 93
--- NOTE | 2018-09-20 15:29 | ED.DEP ---
ED Disposition - Plan for ED Patient: Disposition: Home or Assisted Living Instructions: ED Panic Attack Referrals: Tadeo Salter MD [Primary Care Provider] - As Needed Additional Instructions: Follow-up with your doctor to consider and discuss with him being placed on an anxiety medication.
[2018-09-20 15:37] VITALS: BP 135/76; PULSE 68; RESP 18; O2SAT 94
== END 2018-09-20 15:38 | disposition home or self-care (01) ==
PROVIDERS: Emergency Provider Emergency Medicine; Family Provider Internal Medicine; PCP Internal Medicine
DX: F41.9 Anxiety disorder, unspecified (principal); E11.9 Type 2 diabetes mellitus without complications; Z79.4 Long term (current) use of insulin; Z79.82 Long term (current) use of aspirin; Z79.899 Other long term (current) drug therapy; Z72.0 Tobacco use
CPT/HCPCS: 71045; 93005; 99283

== ENCOUNTER → 2020-03-29 14:44 | Outpatient (CLI) | payer OTHER, SELFPAY ==
--- NOTE | 2020-03-29 14:48 | CT_ITS ---
STUDY: CT CHEST WITHOUT CONTRAST- LOW DOSE SCREENING PROTOCOL REASON FOR EXAM: Male, 59 years old. Current smoker. 45 pack per year history. No current symptoms of lung cancer or pulmonary infection. Shared decision-making with referring PCP documented in patient''s record. RADIATION DOSAGE (If Supplied By Facility): CTDIvol = ( 4.02 ) mGy, DLP = ( 141.45 ) mGycm TECHNIQUE: Low dose screening CT examination performed from the base of the neck to the upper abdomen. Sagittal and coronal reformatted images performed. Sagittal and coronal MIP images provided. The measurements provided are average, rounded measurements per ACR guidelines. COMPARISON: 06/25/2018 FINDINGS: The lungs are normal. There is no demonstrated pleural abnormality. Normal heart and pericardium. There are calcifications of the coronary arteries. Normal mediastinum. Normal hilar regions. Normal unenhanced pulmonary arteries. Normal aorta arch and descending thoracic aorta. Normal osseous structures. There is no demonstrated abnormality of the visualized upper abdomen. CT/Low Dose CT Lung Screening IMPRESSION: 1. No significant indeterminate incidental findings requiring additional imaging. 2. Incidental findings include calcified coronary artery plaque.. ASSESSMENT CATEGORY: LungRADS 1 - Negative. Continue annual screening with LDCT in 12 months, per established ACR guidelines. Electronically Signed: Octaviano Whitehead MD at 17:01 EDT Tel , Service support ,
== END ==
PROVIDERS: Family Provider Internal Medicine; PCP Internal Medicine; Referring Provider Internal Medicine Pulmonary Disease; Visit Provider Internal Medicine Pulmonary Disease
DX: Z12.2 Encounter for screening for malignant neoplasm of respiratory organs (principal); Z87.891 Personal history of nicotine dependence
CPT/HCPCS: G0297

== ENCOUNTER 2021-03-13 17:49 | Emergency (ER) | payer OTHER, SELFPAY ==
[2021-03-13 17:50] VITALS: BP 146/67; PULSE 64; RESP 14; TEMP 37.1; O2SAT 97; BMI 29.9
--- NOTE | 2021-03-13 17:55 | RAD_ITS ---
HISTORY: chest pain EXAMINATION/TECHNIQUE: XR Chest 1 View: 1 view COMPARISON: September 20, 2018 FINDINGS: LINES/DEVICES: None. LUNGS: No consolidation, edema or effusion. No pneumothorax. MEDIASTINUM AND CARDIOVASCULAR STRUCTURES: Cardiac silhouette not enlarged. Central airways and mediastinal contour are unremarkable. BONES AND SOFT TISSUES: No acute bony abnormalities. RAD/Chest 1 View (Portable) IMPRESSION: No radiographic evidence of acute cardiopulmonary disease. at 1843 Reported and signed by: Raghu Garcia MD Electronically Signed: Raghu Garcia MD at 18:42 EDT Tel , Service support ,
[2021-03-13 18:16] LABS: Absolute Lymphocyte Count 1.91 X10^3/uL (0.83-4.51); Absolute Neutrophil Count 3.6 X10^3/uL (2.0-7.7); Basophil# 0.04 X10^3/uL; Basophil% 0.6 % (0-1); Eosinophil# 0.23 X10^3/uL; Eosinophils% 3.6 % (0-5); Hematocrit 45.5 % (40-54); Hemoglobin 14.9 g/dL (13.0-16.5); Lymphocyte # 1.91 X10^3/ul (0.83-4.51); Lymphocyte % 30.1 % (19-41); Mean Corp Hgb Conc 32.7 g/dL (32-36); Mean Corpuscular Volume 94.8 fL (80-94); Mean Platelet Vol. 10.5 fl (6.2-12.0); Monocyte% 9.4 % (0-10); NRBC Flagged by Analyzer 0 % (0-5); Neutrophil # 3.56 X10^3/uL (2.7-7.7); Neutrophil % 56.1 % (47-70); Platelet Count 210 K/mm3 (150-450); RBC Distribution Width CV 12.5 % (11.6-14.6); RBC Distribution Width SD 43.5 fl (35.1-43.9); White Blood Count 6.4 K/mm3 (4.4-11.0)
[2021-03-13 19:03] LABS: Anion Gap 5 (5-15); BUN 8 mg/dL (7-18); BUN/Creat Ratio 9.5 RATIO (10-20); Calcium,Total 8.9 mg/dL (8.5-10.1); Chloride 108 mmol/L (98-107); Creatinine, Serum 0.84 mg/dL (0.70-1.30); EST Glomerular Filtration Rate 98 mL/min (>60); Est Glom Filt Rate - Afr Amer 118 mL/min (>60); Estimated Creatinine Clearance 100.08 ml/min; Glucose 89 mg/dL (74-106); Potassium 3.9 mmol/L (3.5-5.1); Sodium Level 141 mmol/L (136-145); Troponin-I HS 3.7 pg/mL (3.0-78.5)
[2021-03-13] MEDS: Aspirin 81 MG TAB.CHEW 324 MG PO (19:28)
[2021-03-13 19:38] VITALS: BP 147/73; PULSE 58; RESP 18; O2SAT 95
--- NOTE | 2021-03-13 19:52 | ED.VIS.CHEST ---
HPI History of Present Illness Chief Complaint: Chest Pain Narrative Narrative: Patient presenting with exertional chest pain. He was sent by his primary care physician. Apparently when he ambulates he gets diaphoretic and has chest pain. Patient does have history of hypertension, diabetes, GERD. Patient states that he had 4 days last week where he had exertional dyspnea and chest pain however this is resolved. Yesterday he was able to walk out to his barn without difficulty and had of the symptoms. Patient called his PCP who referred him to the ER. [facility] Medical History Anxiety Diabetes Home Medications aspirin 81 mg PO DAILY 05/16/13 [History Last Taken 06/12/18] lansoprazole [Prevacid] 30 mg PO DAILY 05/16/13 [History Last Taken 06/17/18] metformin 1,000 mg PO BREAKFAST 05/16/13 [History Last Taken 06/17/18] metformin 1,000 mg PO QHS 05/16/13 [History Last Taken 06/17/18] sitagliptin [Januvia] 100 mg PO DAILY 05/16/13 [History Last Taken 06/17/18] citalopram 20 mg PO DAILY 04/04/14 [History Last Taken 06/17/18] mirtazapine 30 mg PO QHS 04/04/14 [History Last Taken 06/17/18] glimepiride 2 mg PO BID 01/25/16 [History Last Taken 06/17/18] insulin glargine [Basaglar Kwikpen U-100] 40 unit SQ QHS 06/18/18 [History Last Taken 06/17/18] clonazepam 0.25 mg PO BID PRN 09/20/18 [History Last Taken Unknown] Allergy/AdvReac Type Severity Reaction Status Date / Time bupropion [From Wellbutrin] Allergy Vomiting Verified 03/13/21 17:52 hydrocodone [Hydrocodone] Allergy Rash Verified 03/13/21 17:52 prednisone Allergy Rash Verified 03/13/21 17:52 Social History Smoking Status: Current every day smoker tobacco type: cigarettes ROS ROS ED Constitutional Constitutional ED: Reports sweats; Denies chills or fever(s) Eyes Eyes: Denies blurry vision or change in vision ENT ENT ED: Denies rhinorrhea or sore throat Cardiovascular Cardiovascular: Reports chest pain and palpitations Respiratory/Chest Respiratory/Chest: Reports dyspnea and dyspnea on exertion; Denies cough Gastrointestinal Gastrointestinal: Denies abdominal pain, diarrhea, nausea or vomiting Genitourinary Genitourinary ED: Denies dysuria or hematuria Musculoskeletal Musculoskeletal: Denies arthralgias, back pain, myalgias or neck pain Integumentary Denies abscess or rash Neurologic Neurologic: Denies headache(s) or paresthesias EXAM Physical Exam Const Vital Signs: 03/13/21 17:50 03/13/21 19:38 Temperature 98.7 F Temperature Source Temporal Pulse Rate 64 58 L Respiratory Rate 14 18 Blood Pressure 146/67 H 147/73 H Blood Pressure Mean 93 97 Pulse Ox 97 95 Oxygen Delivery Method Room Air Room Air Positive well nourished General Appearance ED: NAD; Negative for pallor HEENT Reports moist mucous membranes normocephalic and atraumatic Eyes PERRL and EOMs intact bilaterally Resp normal respiratory effort Effort and Inspection: respiratory distress Cardio regular rate and regular rhythm Back/Spine no CVA tenderness General Back: CVA tenderness Extremity normal to inspection Neuro oriented x3 Sensorium / Orientation: awake and alert Psych mental status grossly normal Skin no rashes or lesions noted and no wounds General Skin Exam: Negative for jaundice or pallor Heart Score History: Slightly/Non-Suspicious ECG: Normal Age: >45 - <65 years Risk Factors: >/= 3 Risk Factors or History of CAD Score: 3 MDM MDM MDM Narrative Medical decision making narrative: Patient presenting with exertional chest pain and diaphoresis. He had EKG performed on arrival and on my interpretation shows sinus bradycardia with a ventricular rate of 58 bpm, NV interval 140 ms, QRS duration 104 ms, QTC 467 ms. Chest x-ray on my interpretation shows no acute cardiopulmonary process. The radiologist does agree. CBC and BMP are unremarkable. Troponin is 3.7. Patient's heart score is 3. Delta EKG shows a sinus bradycardia with a ventricular rate of 58 bpm on my interpretation. NV interval 142 ms, QRS duration 196 ms, QTC 457 ms. There are no ST elevations or depressions. Since patient had negative delta troponin and negative D-dimer I feel the patient is safe to be discharged home. I did speak with Dr. Salter who will follow up with him outpatient for outpatient testing. He is given return precautions should he have new or worsening symptoms. Impression: 1. Exertional dyspnea 2. Chest pain Lab Data Attestation: I reviewed the patient's lab results. Labs: Laboratory Results - last 24 hr 03/13/21 03/13/21 03/13/21 18:10 18:10 19:33 WBC 6.4 RBC 4.80 Hgb 14.9 Hct 45.5 MCV 94.8 H MCH 31.0 MCHC 32.7 RDW Std Deviation 43.5 RDW Coeff of Bhargavi 12.5 Plt Count 210 MPV 10.5 Immature Gran % (Auto) 0.200 Neut % (Auto) 56.1 Lymph % (Auto) 30.1 [place] % (Auto) 9.4 Eos % (Auto) 3.6 Baso % (Auto) 0.6 Absolute Neuts (auto) 3.6 Absolute Lymphs (auto) 1.91 Nucleated RBC % 0 D-Dimer Quant (PE/DVT) 0.42 Sodium 141 Potassium 3.9 Chloride 108 H Carbon Dioxide 28.0 Anion Gap 5 BUN 8 Creatinine 0.84 Estim Creat Clear Calc 100.08 Est GFR (MDRD) Af Amer 118 Est GFR (MDRD) Non-Af 98 BUN/Creatinine Ratio 9.5 L Glucose 89 Calcium 8.9 Troponin I High Sens 3.7 03/13/21 20:00 WBC RBC Hgb Hct MCV MCH MCHC RDW Std Deviation RDW Coeff of Bhargavi Plt Count MPV Immature Gran % (Auto) Neut % (Auto) Lymph % (Auto) [place] % (Auto) Eos % (Auto) Baso % (Auto) Absolute Neuts (auto) Absolute Lymphs (auto) Nucleated RBC % D-Dimer Quant (PE/DVT) Sodium Potassium Chloride Carbon Dioxide Anion Gap BUN Creatinine Estim Creat Clear Calc Est GFR (MDRD) Af Amer Est GFR (MDRD) Non-Af BUN/Creatinine Ratio Glucose Calcium Troponin I High Sens 3.9 Radiography Diagnostic Testing: Radiology Impression Chest X-Ray 03/13/21 17:55 IMPRESSION: No radiographic evidence of acute cardiopulmonary disease. at 1843 Reported and signed by: Raghu Garcia MD Electronically Signed: Raghu Garcia MD at 18:42 EDT Tel , Service support , Discharge Plan Triage Chief Complaint: Chest Pain ED Provider: Taras Lopez Dx/Rx/DC Orders Instructions: ED Chest Pain, Uncertain Cause Prescriptions: No Action lansoprazole [Prevacid] 30 MG capsule 30 mg PO DAILY RF: 0 aspirin 81 MG Tab.Chew 81 mg PO DAILY RF: 0 metformin 500 MG tablet 1,000 mg PO QHS RF: 0 metformin 500 MG tablet 1,000 mg PO BREAKFAST RF: 0 sitagliptin [Januvia] 25 MG tablet 100 mg PO DAILY RF: 0 citalopram 20 MG tablet 20 mg PO DAILY RF: 0 mirtazapine 30 MG tablet 30 mg PO QHS RF: 0 glimepiride 2 MG tablet 2 mg PO BID RF: 0 insulin glargine [Basaglar KwikPen U-100 Insulin] 100 UNIT/ML Insuln.Pen 40 unit SQ QHS RF: 0 clonazepam 0.5 MG tablet 0.25 mg PO BID PRN (Reason: Anxiety) RF: 0 Primary Care Provider: Tadeo Salter Referrals: Tadeo Salter MD [Primary Care Provider] - Disposition Disposition: Home, Self Care Discharge Date/Time: 03/13/21 21:20
--- NOTE | 2021-03-13 20:01 | EKG12_ITS ---
Test Reason : REPEAT Blood Pressure : / mmHG Vent. Rate : 058 BPM Atrial Rate : 058 BPM P-R Int : 142 ms QRS Dur : 096 ms QT Int : 466 ms P-R-T Axes : 001 -28 015 degrees QTc Int : 457 ms Sinus bradycardia Otherwise normal ECG Confirmed by LUI CUI, ROXANE ([id number]), video editor ELIJAH RICHARDS ([id number]) on 03/18/2021 9:36:20 AM Referred By: NENA Confirmed By:ROXANE POE MD
[2021-03-13 20:25] LABS: D-Dimer Quantitative (DVT/PE) 0.42 FEU/ug/m (0.27-0.49)
[2021-03-13 20:32] LABS: Troponin-I HS 3.9 pg/mL (3.0-78.5)
== END 2021-03-13 21:20 | disposition home or self-care (01) ==
PROVIDERS: Emergency Provider Student in an Organized Health Care Education/Training Program; PCP Internal Medicine
DX: R07.9 Chest pain, unspecified (principal); R06.00 Dyspnea, unspecified; F17.210 Nicotine dependence, cigarettes, uncomplicated; F41.9 Anxiety disorder, unspecified; E11.9 Type 2 diabetes mellitus without complications; K21.9 Gastro-esophageal reflux disease without esophagitis; I10 Essential (primary) hypertension
CPT/HCPCS: 71045; 80048; 84484; 85025; 85379; 93005; 99284; A4216

== ENCOUNTER → 2024-06-08 | Outpatient (CLI) | payer OTHER, SELFPAY | END | disposition home or self-care (01) | PROVIDERS: PCP Internal Medicine; Referring Provider Family Medicine Hospice and Palliative Medicine; Visit Provider Family Medicine Hospice and Palliative Medicine | DX: R53.83 Other fatigue (principal); R82.998 Other abnormal findings in urine | CPT/HCPCS: 87086; 87088 ==

== ENCOUNTER → 2024-06-10 | Outpatient (CLI) | payer OTHER, SELFPAY ==
[2024-06-10 17:09] LABS: Color, Urine Yellow (Yellow); Glucose, Dipstick 1000 mg/dl (Normal); Ketone-Dipstick Negative (Negative); Leukocyte Esterase-Dipstick Negative /ul (Negative); Nitrite-Dipstick Negative (Negative); Occult Blood-Urine 10 /ul (Negative); Protein-Dipstick Negative (Negative); Urine Bilirubin Dipstick Negative (Negative); Urine Clarity Clear (Clear); Urine Urobilinogen Normal (Normal)
== END | disposition home or self-care (01) ==
LOC: LABSPEC 15:47
PROVIDERS: Nurse Practitioner Primary Care; PCP Internal Medicine; Referring Provider Radiology Diagnostic Radiology; Visit Provider Radiology Diagnostic Radiology
DX: R82.89 Other abnormal findings on cytological and histological examination of urine (principal); R53.83 Other fatigue
CPT/HCPCS: 81002; 87086; 87088

== ENCOUNTER → 2024-10-28 | Outpatient (CLI) | payer OTHER, SELFPAY ==
[2024-10-29 07:43] LABS: Mucous, Urine 0 SEEN /hpf (<or=2+); Squamous Epithelial Cells - UA 0 SEEN /hpf (0-5)
[2024-10-29 08:19] LABS: Color, Urine Straw (Yellow); Glucose, Dipstick 1000 mg/dl (Normal); Ketone-Dipstick 5 mg/dl (Negative); Leukocyte Esterase-Dipstick Negative /ul (Negative); Nitrite-Dipstick Negative (Negative); Occult Blood-Urine 10 /ul (Negative); Protein-Dipstick 15 mg/dl (Negative); Specific Gravity, Urine 1.015 (1.002-1.030); Urine Bilirubin Dipstick Negative (Negative); Urine Clarity Clear (Clear); Urine Urobilinogen Normal (Normal)
[2024-10-29 10:39] LABS: Bacteria RARE /hpf (None Seen); Red Blood Cells-Urine 0-5 SEEN /hpf (0-5); White Blood Cells 0-5 SEEN /hpf (0-5)
== END | disposition home or self-care (01) ==
LOC: LABSPEC 11:44
PROVIDERS: PCP Internal Medicine; Referring Provider Emergency Medicine; Visit Provider Emergency Medicine
DX: R30.0 Dysuria (principal)
CPT/HCPCS: 81001; 87086; 87088